=== PATIENT | female | born 1985 | race Caucasian/White ===

== ENCOUNTER 2016-10-01 10:40 | Emergency (ER) | payer OTHER ==
[~2016-10-01] VITALS: Ht 167.6 cm; Wt 72.6 kg
[2016-10-01 10:42] VITALS: BP 140/86
[2016-10-01] MEDS ORDERED: TYLE650T35 PO (10:54)
[2016-10-01] MEDS ORDERED: ALBU17IN INH (10:54)
[2016-10-01] MEDS ORDERED: SILV1CRE19 TOP (11:22)
[2016-10-01] MEDS ORDERED: NORCOTAB PO (11:22)
== END 2016-10-01 11:35 | disposition home or self-care (01) ==
LOC: M ED 11:03
DX: T22.112A Burn of first degree of left forearm, initial encounter (principal); T22.212A Burn of second degree of left forearm, initial encounter; X10.2XXA Contact with fats and cooking oils, initial encounter; Y92.59 Other trade areas as the place of occurrence of the external cause; Y93.G3 Activity, cooking and baking; Y99.0 Civilian activity done for income or pay; J45.909 Unspecified asthma, uncomplicated; F17.200 Nicotine dependence, unspecified, uncomplicated; Z86.14 Personal history of Methicillin resistant Staphylococcus aureus infection; Z88.0 Allergy status to penicillin

== ENCOUNTER 2018-04-19 11:58 | Emergency (ER) | payer OTHER ==
[2018-04-19] MEDS: IPRATROPIUM 0.5MG/ALBUTEROL 2.5MG INH SOL UD 3ML (DUONEB)(J7620) NEB (13:31)
== END 2018-04-19 13:59 | disposition home or self-care (01) ==
LOC: M ED 11:58
DX: J06.9 Acute upper respiratory infection, unspecified (principal)
CPT/HCPCS: 71046

== ENCOUNTER 2018-08-16 14:37 | Emergency (ER) | payer OTHER ==
[~2018-08-16] VITALS: Ht 167.6 cm; Wt 81.8 kg
[~2018-08-16 14:37] MED LIST: ALBU17IN INH; BENT10CA PO; NORCOTAB PO; PRED10TA2 PO; PROAAER10 INH; SILV1CRE60 TOP; TYLE650T35 PO; ZOFR4TAB14 PO
[2018-08-16] MEDS ORDERED: ACET-683 PO (14:42)
[2018-08-16] MEDS ORDERED: ACETAMINOPHEN TAB 650MG DOSE (2X325MG) PO ONE (15:00)
--- NOTE | 2018-08-16 15:17 | REP ---
PA and lateral chest: Comparison is 04/19/2018. The lung bishop are clear. The cardiac size is normal. The zayda, mediastinum, and skeletal structures are unremarkable. Impression: Negative PA and lateral chest. There is no interval change. Electronically Signed by Joaquim Okeefe MD 08/16/2018 03:09 P
[2018-08-16 15:38] LABS: INFLUENZA A AMPLIFICATION NEGATIVE (NEGATIVE); INFLUENZA B AMPLIFICATION NEGATIVE (NEGATIVE)
[2018-08-16] MEDS ORDERED: AZIT-12 PO (15:59)
[2018-08-16 16:09] VITALS: BP 111/65
== END 2018-08-16 16:11 | disposition home or self-care (01) ==
LOC: M ED 14:37
DX: H66.90 Otitis media, unspecified, unspecified ear (principal); R05 Cough; J45.909 Unspecified asthma, uncomplicated; F17.200 Nicotine dependence, unspecified, uncomplicated; Z98.890 Other specified postprocedural states; Z88.0 Allergy status to penicillin

== ENCOUNTER → 2018-11-20 | Outpatient (CLI) | payer OTHER ==
[~2018-11-20] MED LIST changes: +ACET-683 PO; +AZIT-12 PO; +HYDR-3715 PO; -NORCOTAB PO
--- NOTE | 2018-11-20 15:27 | REP ---
Chest two views HISTORY: Wheezing Comparison: 08/16/2018 Linear density is present in the right lower lobe consistent with scar. The left lung is clear. The heart is normal in size. The pulmonary vasculature is normal in appearance. The bony structure is intact. IMPRESSION: No acute disease. Electronically Signed by Rosas Stack MD 11/20/2018 03:19 P
== END ==
LOC: M LRY 14:27
PROVIDERS: ATTEND Nurse Practitioner Family
DX: R06.2 Wheezing (principal)

== ENCOUNTER → 2019-01-21 | Outpatient (REF) | payer OTHER, MEDICAID ==
[2019-01-21 17:26] LABS: BASO % 0.4 % (0.0-1.0); EOS # 0.6 10^3/uL (0.0-0.50); EOS % 6.9 % (0.0-3.0); HEMATOCRIT 42.2 % (36.0-47.0); HEMOGLOBIN 14.4 g/dl (12.0-15.5); LYMPH # 2.4 10^3/uL (1.5-4.5); LYMPH % 28.1 % (24.0-44.0); MEAN CORPUSCULAR HEMOGLOBIN 30.1 pg (27.0-33.0); MEAN CORPUSCULAR HGB CONC 34.1 g/dl (32.0-36.5); MEAN CORPUSCULAR VOLUME 88.3 fl (80.0-96.0); MONO # 0.6 10^3/uL (0.0-0.8); MONO % 6.9 % (0.0-5.0); NEUTROPHILS # 4.8 10^3/uL (1.8-7.7); NEUTROPHILS % 57.5 % (36.0-66.0); PLATELET COUNT, AUTOMATED 281 10^3/uL (150-450); RED BLOOD COUNT 4.78 10^6/uL (4.00-5.40); WHITE BLOOD COUNT 8.4 10^3/uL (4.0-10.0)
[2019-01-21 17:47] LABS: ALBUMIN 3.8 GM/DL (3.2-5.2); ALT/SGPT 30 U/L (12-78); BILIRUBIN,TOTAL 0.3 MG/DL (0.2-1.0); BLOOD UREA NITROGEN 14 MG/DL (7-18); CALCIUM LEVEL 9.3 MG/DL (8.5-10.1); CARBON DIOXIDE LEVEL 25 MEQ/L (21-32); CHLORIDE LEVEL 108 MEQ/L (98-107); CHOLESTEROL LEVEL 173 MG/DL (<200); CHOLESTEROL RISK RATIO 4.552 (<5); CREATININE FOR GFR 0.89 MG/DL (0.55-1.30); FREE T4 1.28 NG/DL (0.76-1.46); GLOMERULAR FILTRATION RATE > 60.0 (>60); GLUCOSE, FASTING 95 MG/DL (70-100); HDL CHOLESTEROL 38 MG/DL (>40); LDL CHOLESTEROL 111 MG/DL (<100); NON-HDL-C 135 MG/DL; POTASSIUM SERUM 3.9 MEQ/L (3.5-5.1); SODIUM LEVEL 140 MEQ/L (136-145); TOTAL 25(OH) VITAMIN D 22.8 NG/ML (30.0-100.0); TRIGLYCERIDES LEVEL 121 MG/DL (<150)
[2019-01-21 18:03] LABS: HEMOGLOBIN A1c 5.7 %
[2019-01-21 19:35] LABS: AMORPHOUS SEDIMENT SMALL (NEGATIVE); APPEARANCE, URINE CLEAR (CLEAR); BACTERIA, URINE AUTO NEGATIVE (NEGATIVE); BILIRUBIN, URINE AUTO 1+ (NEGATIVE); BLOOD, URINE BLOOD NEGATIVE (NEGATIVE); COLOR, URINE AMBER (YELLOW); GLUCOSE, URINE (UA) AUTO NEGATIVE (NEGATIVE); KETONE, URINE AUTO TRACE mg/dL (NEGATIVE); LEUKOCYTE ESTERASE, URINE AUTO NEGATIVE (NEGATIVE); MUCUS, URINE LARGE (NEGATIVE); NITRITE, URINE AUTO NEGATIVE (NEGATIVE); PROTEIN, URINE AUTO 1+ mg/dL (NEGATIVE); RBC, URINE AUTO 1 /HPF (0-3); SPECIFIC GRAVITY URINE AUTO 1.042 (1.002-1.035); SQUAMOUS EPITHELIAL CELL UR AU 6 /HPF (0-6); WBC, URINE AUTO 5 /HPF (0-3)
== END ==
LOC: M LAB REF 16:40
PROVIDERS: ATTEND Nurse Practitioner Family
DX: Z13.9 Encounter for screening, unspecified (principal)

== ENCOUNTER → 2019-03-02 | Outpatient (REF) | payer OTHER, MEDICAID ==
[2019-03-02 19:43] LABS: APPEARANCE, URINE TURBID (CLEAR); BACTERIA, URINE AUTO NEGATIVE (NEGATIVE); BILIRUBIN, URINE AUTO NEGATIVE (NEGATIVE); BLOOD, URINE BLOOD NEGATIVE (NEGATIVE); COLOR, URINE YELLOW (YELLOW); GLUCOSE, URINE (UA) AUTO NEGATIVE (NEGATIVE); KETONE, URINE AUTO TRACE mg/dL (NEGATIVE); LEUKOCYTE ESTERASE, URINE AUTO NEGATIVE (NEGATIVE); NITRITE, URINE AUTO NEGATIVE (NEGATIVE); PROTEIN, URINE AUTO NEGATIVE (NEGATIVE); RBC, URINE AUTO 0 /HPF (0-3); SPECIFIC GRAVITY URINE AUTO 1.038 (1.002-1.035); SQUAMOUS EPITHELIAL CELL UR AU 4 /HPF (0-6); WBC, URINE AUTO 0 /HPF (0-3)
== END ==
LOC: M LAB REF 19:19
PROVIDERS: ATTEND Nurse Practitioner Family
DX: Z13.9 Encounter for screening, unspecified (principal)

== ENCOUNTER → 2019-07-07 | Outpatient (REF) | payer OTHER, MEDICAID ==
[2019-07-07 17:38] LABS: BASO % 0.6 % (0.0-1.0); EOS # 0.2 10^3/uL (0.0-0.5); EOS % 2.9 % (0.0-3.0); HEMATOCRIT 40.5 % (36.0-47.0); HEMOGLOBIN 13.7 g/dl (12.0-15.5); LYMPH # 2.2 10^3/uL (1.5-5.0); LYMPH % 30.8 % (24.0-44.0); MEAN CORPUSCULAR HEMOGLOBIN 29.3 pg (27.0-33.0); MEAN CORPUSCULAR HGB CONC 33.8 g/dl (32.0-36.5); MEAN CORPUSCULAR VOLUME 86.5 fl (80.0-96.0); MONO # 0.5 10^3/uL (0.0-0.8); MONO % 6.4 % (0.0-5.0); NEUTROPHILS # 4.1 10^3/uL (1.5-8.5); PLATELET COUNT, AUTOMATED 310 10^3/uL (150-450); RED BLOOD COUNT 4.68 10^6/uL (4.00-5.40)
[2019-07-07 18:00] LABS: HEMOGLOBIN A1c 5.5 %
[2019-07-07 18:09] LABS: ALBUMIN 3.7 GM/DL (3.2-5.2); ALT/SGPT 19 U/L (12-78); BILIRUBIN,TOTAL 0.2 MG/DL (0.2-1.0); BLOOD UREA NITROGEN 18 MG/DL (7-18); CALCIUM LEVEL 8.9 MG/DL (8.5-10.1); CARBON DIOXIDE LEVEL 24 MEQ/L (21-32); CHLORIDE LEVEL 108 MEQ/L (98-107); CHOLESTEROL LEVEL 170 MG/DL (<200); CHOLESTEROL RISK RATIO 4.358 (<5); CREATININE FOR GFR 0.74 MG/DL (0.55-1.30); GLOMERULAR FILTRATION RATE > 60.0 (>60); GLUCOSE, FASTING 103 MG/DL (70-100); HDL CHOLESTEROL 39 MG/DL (>40); LDL CHOLESTEROL 96 MG/DL (<100); NON-HDL-C 131 MG/DL; POTASSIUM SERUM 4.6 MEQ/L (3.5-5.1); SODIUM LEVEL 139 MEQ/L (136-145); TOTAL PROTEIN 6.7 GM/DL (6.4-8.2); TRIGLYCERIDES LEVEL 177 MG/DL (<150)
[2019-07-07 18:13] LABS: TOTAL 25(OH) VITAMIN D 23.4 NG/ML (30.0-100.0); VITAMIN B12 LEVEL 967 PG/ML (247-911)
[2019-07-08 11:03] LABS: FOLATE 6.5 NG/ML (>5.4)
== END ==
LOC: M LAB REF 16:30
PROVIDERS: ATTEND Nurse Practitioner Family
DX: R20.2 Paresthesia of skin (principal); R73.03 Prediabetes; F17.200 Nicotine dependence, unspecified, uncomplicated; Z13.9 Encounter for screening, unspecified

== ENCOUNTER → 2019-12-16 | Outpatient (REF) | payer OTHER, MEDICAID ==
[~2019-12-16] MED LIST changes: +ACET650T61 PO; -TYLE650T35 PO
[2019-12-16 20:29] LABS: CHLAMYDIA DNA AMPLIFICATION NEGATIVE (NEGATIVE); GC DNA AMPLIFICATION NEGATIVE (NEGATIVE)
== END ==
LOC: M LAB REF 16:33
PROVIDERS: ATTEND Nurse Practitioner Family
DX: Z12.4 Encounter for screening for malignant neoplasm of cervix (principal); Z13.9 Encounter for screening, unspecified; R87.613 High grade squamous intraepithelial lesion on cytologic smear of cervix (HGSIL)

== ENCOUNTER → 2019-12-17 | Outpatient (REF) | payer OTHER, MEDICAID ==
[2019-12-17 13:01] LABS: BASO % 0.4 % (0.0-1.0); EOS # 0.1 10^3/uL (0.0-0.5); HEMATOCRIT 39.1 % (36.0-47.0); HEMOGLOBIN 13.1 g/dl (12.0-15.5); LYMPH # 2.5 10^3/uL (1.5-5.0); LYMPH % 35.1 % (24.0-44.0); MEAN CORPUSCULAR HEMOGLOBIN 29.3 pg (27.0-33.0); MEAN CORPUSCULAR HGB CONC 33.5 g/dl (32.0-36.5); MEAN CORPUSCULAR VOLUME 87.5 fl (80.0-96.0); MONO # 0.5 10^3/uL (0.0-0.8); MONO % 7.6 % (0.0-5.0); NEUTROPHILS # 3.8 10^3/uL (1.5-8.5); NEUTROPHILS % 54.6 % (36.0-66.0); PLATELET COUNT, AUTOMATED 275 10^3/uL (150-450); RED BLOOD COUNT 4.47 10^6/uL (4.00-5.40)
[2019-12-17 13:11] LABS: ALT/SGPT 37 U/L (12-78); BILIRUBIN,TOTAL 0.4 MG/DL (0.2-1.0); BLOOD UREA NITROGEN 27 MG/DL (7-18); CARBON DIOXIDE LEVEL 23 MEQ/L (21-32); CHLORIDE LEVEL 108 MEQ/L (98-107); CHOLESTEROL LEVEL 180 MG/DL (<200); CHOLESTEROL RISK RATIO 3.529 (<5); CREATININE FOR GFR 1.04 MG/DL (0.55-1.30); GLOMERULAR FILTRATION RATE > 60.0 (>60); GLUCOSE, FASTING 94 MG/DL (70-100); HDL CHOLESTEROL 51 MG/DL (>40); LDL CHOLESTEROL 107 MG/DL (<100); NON-HDL-C 129 MG/DL; POTASSIUM SERUM 3.4 MEQ/L (3.5-5.1); SODIUM LEVEL 140 MEQ/L (136-145); TOTAL PROTEIN 7.3 GM/DL (6.4-8.2); TRIGLYCERIDES LEVEL 108 MG/DL (<150)
[2019-12-17 16:24] LABS: HEMOGLOBIN A1c 5.7 %
== END ==
LOC: M LAB REF 11:43
PROVIDERS: ATTEND Nurse Practitioner Family
DX: R73.03 Prediabetes (principal); E78.5 Hyperlipidemia, unspecified; F17.200 Nicotine dependence, unspecified, uncomplicated; M54.89 Other dorsalgia; Z13.9 Encounter for screening, unspecified; F41.8 Other specified anxiety disorders

== ENCOUNTER → 2020-05-18 | Outpatient (REF) | payer OTHER, MEDICAID ==
[2020-05-18 13:20] LABS: BASO % 0.3 % (0.0-1.0); EOS # 0.1 10^3/uL (0.0-0.5); EOS % 0.8 % (0.0-3.0); HEMATOCRIT 41.2 % (36.0-47.0); HEMOGLOBIN 13.9 g/dl (12.0-15.5); LYMPH # 2.3 10^3/uL (1.5-5.0); MEAN CORPUSCULAR HGB CONC 33.7 g/dl (32.0-36.5); MEAN CORPUSCULAR VOLUME 85.8 fl (80.0-96.0); MONO # 0.6 10^3/uL (0.0-0.8); MONO % 6.8 % (0.0-5.0); NEUTROPHILS # 5.8 10^3/uL (1.5-8.5); NEUTROPHILS % 65.9 % (36.0-66.0); PLATELET COUNT, AUTOMATED 271 10^3/uL (150-450); WHITE BLOOD COUNT 8.7 10^3/uL (4.0-10.0)
[2020-05-18 13:37] LABS: ALT/SGPT 45 U/L (12-78); BILIRUBIN,TOTAL 0.4 MG/DL (0.2-1.0); BLOOD UREA NITROGEN 20 MG/DL (7-18); CALCIUM LEVEL 8.9 MG/DL (8.5-10.1); CARBON DIOXIDE LEVEL 27 MEQ/L (21-32); CHLORIDE LEVEL 112 MEQ/L (98-107); CHOLESTEROL LEVEL 213 MG/DL (<200); CREATININE FOR GFR 0.78 MG/DL (0.55-1.30); FREE T4 1.27 NG/DL (0.76-1.46); GLOMERULAR FILTRATION RATE > 60.0 (>60); GLUCOSE, FASTING 109 MG/DL (70-100); HDL CHOLESTEROL 50 MG/DL (>40); LDL CHOLESTEROL 130 MG/DL (<100); NON-HDL-C 163 MG/DL; POTASSIUM SERUM 3.6 MEQ/L (3.5-5.1); SODIUM LEVEL 142 MEQ/L (136-145); TOTAL PROTEIN 7.3 GM/DL (6.4-8.2); TRIGLYCERIDES LEVEL 165 MG/DL (<150)
[2020-05-18 13:39] LABS: TOTAL 25(OH) VITAMIN D 15.3 NG/ML (30.0-100.0)
[2020-05-18 13:50] LABS: HEMOGLOBIN A1c 5.7 %
== END ==
LOC: M LAB REF 12:55
PROVIDERS: ATTEND Nurse Practitioner Family
DX: F43.23 Adjustment disorder with mixed anxiety and depressed mood (principal); R73.03 Prediabetes; E78.5 Hyperlipidemia, unspecified; F17.200 Nicotine dependence, unspecified, uncomplicated

== ENCOUNTER 2020-07-15 00:40 | Emergency (ER) | payer MEDICAID, OTHER ==
[~2020-07-15] VITALS: Ht 167.6 cm; Wt 81.8 kg
--- OUTSIDE RECORDS SUMMARY | 2020-07-15 00:44 | CCD ---
Author Organization Unknown Address [address] [place] [address] Phone [phone] Care Team Providers Care Child Care Attendant School Name Role Phone [facility] 212 [phone] [facility] 240 [phone] Allergies Code Code System Name Reaction Severity Status Onset Penicillin Active 03/02/2019 Medications Name Status Start Date Stop Date albuterol sulfate HFA 90 mcg/actuation a erosol inhaler INHALE TWO PUFFS BY MOUTH EVERY 4 HOURS Active Not available azithromycin 250 mg tablet Completed 04/11 bupropion HCl XL 150 mg 24 hr tablet, extended release Completed 04/11/2020 bupropion HCl XL 300 mg 24 hr tablet, extended release Active Not available Chantix Continuing Month Box 1 mg tablet Active Not available cyclobenzaprine 10 mg tablet Completed 07/2019 doxycycline hyclate 100 mg tablet Completed 04/11/2020 escitalopram 10 mg tablet TAKE ONE TABLET BY MOUTH EVERY MORNING Active Not available fluoxetine 10 mg capsule Completed 020 gabapentin 300 mg capsule Take 1 capsule twice a day by oral route. Active Not available meloxicam 15 mg tablet TAKE ONE TABLET BY MOUTH EVERY DAY Active Not available meloxicam 7.5 mg tablet Completed 04/11/20 20 methylphenidate 20 mg tablet Active Not available metronidazole 500 mg tablet Completed 07/2019 Mucus Relief ER 600 mg tablet, extended release Completed 04/11/2020 prazosin 1 mg capsule Completed 04/12/2020 prazosin 2 mg capsule Active Not availa ble prednisone 10 mg tablet Completed 04/12/20 20 Systane Nighttime 94 %-3 % eye ointment APPLY 1/4 INCH STRIP INTO BOTH LOWER EYELIDS AT BEDTIME DIRECTED Active Not available Vitamin D2 1,250 mcg (50,000 unit) capsu le Take 1 capsule every week by oral route as directed. Active Not available Problems Name Status Onset Date Source Nicotine Dependence Active 12/31/2018 History Pain in Thoracic Spine Active 12/31/2018 History Emotional State Finding Active 12/31/2018 History Clinical Finding Active 12/31/2018 History Hyperlipidemia Active 03/02/2019 History Prediabetes Active 03/02/2019 History Screening for Malignant Neoplasm of Cervix Active 03/02 History Finding of Regularity of Menstrual Cycle Active 019 History Disorder of Upper Respiratory System Active 03/20/2019 History Increased Frequency of Urination Active 03/20/2019 History Tingling of Skin Active 05/18/2019 History Dyspnea Active 06/30/2019 History Pain in Right Hip Joint Active 06/30/2019 History Cannabis Abuse Active 10/15/2019 History Adjustment Disorder with Mixed Disturbance of Emotions and C onduct Active 10/27/2019 History Cough Active 11/10/2019 History Posttraumatic Stress Disorder Active 11/23/2019 Hi story Acute Vaginitis Active 12/16/2019 History Evaluation Finding Active 01/16/2020 History Procedures Date Name Performed by Shaving Notes: jaw Information not available Internal Fixation of Clavicle without Fr acture Reduction Information not available Cystoscopy Notes: cyst and part of jaw removed Information not available Removal Notes: teeth Information not available Ear Tube Notes: both ears Information not available Results Lab Results Date Name Specimen Result Interpretation Description Value Range Status Address 05/18/2020 CBC W/ Auto Diff Normal White Blood Count 8.7 10 4.0-10.0 10 [facility]: 0 [facility] Normal Red Blood Count 4.80 10 4.00-5.40 10 [facility]: 830 [facility] Normal Hemoglobin 13.9 g/dL 12.0-15.5 g/dL [facility]: 830 [facility] Normal Hematocrit 41.2 % 36.0-47.0 % [facility]: 8[address] [facility] Normal Mean Corpuscular Volume 85.8 fL 80.0 -96.0 fL [facility]: 0 [facility] Normal Mean Corpuscular Hemoglobin 29.0 pg 27.0-33.0 pg [facility]: [address] [facility] Normal Mean Corpuscular HGB Conc 33.7 g/dL 32.0-36.5 g/dL [facility]: 830 [facility] Normal Red Cell Distribution Width 12.0 % 1 1.5-14.5 % [facility]: [address] [place] [address] Normal Platelet Count, Automated 271 10 150 -450 10 [facility]: [address] [facility] Normal Neutrophils % 65.9 % 36.0-66.0 % [facility]: 8[address] [facility] Normal Lymph % 26.0 % 24.0-44.0 % Final [facility]: [address] [facility] High Dickson % 6.8 % 0.0-5.0 % Final [facility]: [address] [place] [address] Normal Eos % 0.8 % 0.0-3.0 % [facility]: [address] [place] [address] Normal Baso % 0.3 % 0.0-1.0 % [facility]: [address] [place] [address] Normal Immature Granulocyte % 0.2 % 0-3.0 % [facility]: [address] [facility] Normal Nucleated Red Blood Cell % 0.0 % 0- 0 % [facility]: 8[address] [facility] Normal Neutrophils # 5.8 10 1.5-8.5 10 [facility]: [address] [facility] Normal Lymph # 2.3 10 1.5-5.[address] [facility]: 0 [facility] Normal Dickson # 0.6 10 0.0-0.8 10 [facility]: 0 [facility] Normal Eos # 0.1 10 0.0-0.5 10 [facility]: 0 [facility] Normal Baso # 0.0 10 0.0-0.2 10 [facility]: [address] [place] [address] 05/18/2020 CMP, Serum or Plasma Blood venous High Glu cose, Fasting 109 mg/dL 70-100 mg/dL [facility] nter: 0 [facility] Blood venous High Blood Urea Nitrogen 20 mg/dL 7-18 mg/dL Final [facility]: [address] [facility] Blood venous Normal Creatinine for GFR 0.78 mg/dL 0.55-1.30 mg/dL [facility]: [address] [facility] Blood venous Normal Glomerular Filtration Rate > 60.0 >60 [facility]: [address] [facility] Blood venous Normal Sodium Level 142 mEq/L 136-14 5 mEq/L [facility]: [address] [facility] Blood venous Normal Potassium Serum 3.6 mEq/L 3.5 -5.1 mEq/L [facility]: [address] [facility] Blood venous High Chloride Level 112 mEq/L 98-1 07 mEq/L [facility]: [address] [facility] Blood venous Normal Carbon Dioxide Level 27 mEq/L 21-32 mEq/L [facility]: 8[address] [facility] Blood venous Low Anion Gap 3 mEq/L 8-16 mEq/L [facility]: 8[address] [facility] Blood venous Normal Calcium Level 8.9 mg/dL 8.5-1 0.1 mg/dL [facility]: 8[address] [facility] Blood venous Normal AST/SGOT 20 U/L 7-37 U/L [facility]: [address] [facility] Blood venous Normal ALT/SGPT 45 U/L 12-78 U/L [facility]: [address] [facility] Blood venous High Alkaline Phosphatase 131 U/L 45-117 U/L [facility]: [address] [facility] Blood venous Normal Bilirubin,total 0.4 mg/dL 0.2 -1.0 mg/dL [facility]: [address] [facility] Blood venous Normal Total Protein 7.3 gm/dL 6.4-8 .2 gm/dL [facility]: 0 [facility] Blood venous Normal Albumin 4.0 gm/dL 3.2-5.2 gm/ dL [facility]: [address] [facility] Blood venous Normal Albumin/globulin Ratio 1.2 1.2-2.2 [facility]: [address] [place] [address] 05/18/2020 Lipid Panel, Blood Blood venous High Trigl ycerides Level 165 mg/dL <150 mg/dL [facility] nter: [address] [place] [address] Blood venous High Cholesterol Level 213 mg/dL < 200 mg/dL [facility]: [address] [place] [address] Blood venous Normal HDL Cholesterol 50 mg/dL >40 mg/dL [facility]: [address] [place] [address] Blood venous High LDL Cholesterol 130 mg/dL <10 0 mg/dL [facility]: [address] [place] [address] Blood venous Normal Non-hdl-c 163 mg/dL Fi [facility]: [address] [place] [address] Blood venous Normal Cholesterol Risk Ratio 4.260 <5 [facility]: [address] [place] [address] 05/18/2020 TSH + Free T4, Serum Blood venous High Thyroid Stimulating Hormone 4.240 uIU/mL 0.358-3.740 uIU/mL [facility] ical Center: [address] [place] [address] Blood venous Normal Free T4 1.27 NG/dL 0.76-1.46 NG/dL [facility]: [address] [place] [address] 05/18/2020 Vitamin D, 25-Hydroxy, Total, Serum Blood venous Low Total 25(Oh) Vitamin D 15.3 NG/mL 30.0-100.0 NG/mL [facility] Center: [address] [place] [address] 05/18/2020 HbA1C (Hemoglobin a1C), Blood Normal Hemogl obin a1C 5.7 % [facility]: [address] [place] [address] High Estimated Average Glucose 117 mg/dL 60-110 mg/dL [facility]: [address] [place] [address] Past Encounters 07/05/2020 Peripheral Neuropathic Pain; Patient Asked to Attend; Nicotine Dependence with Current Use; Vitamin D Deficiency; Screening for Malignant Neoplasm of Cervix Carolynn Peñaloza, [employer] BUSINESS DEVELOPMENT OFFICER-BC: [address] [place] [phone], Ph. 05/19/2020 Adjustment Disorder with Mixed Disturbance of Emotions and Conduct; Attention Deficit Hyperactivity Disorder, Combined Type; Depressive Disorder; Generalized Anxiety Disorder; Chronic Post-traumatic Stress Disorder Dawn Tinoco MD: [address] [place] [address], Ph. 05/18/2020 JUDY WeissP-BC: [address] [place] [address], Ph. 04/25/2020 Adjustment Disorder with Mixed Disturbance of Emotions and Conduct Mary Gutierrez MANAGER ASSESSMENT-R: [address] [place] [address], Ph. 04/11/2020 Peripheral Neuropathic Pain; Adult Health Examination; Nicotine Dependence; Mixed Anxiety and Depressive Disorder; Hyperlipidemia AYLEEN Weiss-BC: [address] [place] [address], Ph. Social History Tobacco Smoking Status Heavy Tobacco Smoker (1/2 PPD) Vaccine List None recorded. Plan of Care Reminders Provider Appointments None recorded. Lab None recorded. Referral None recorded. Procedures None recorded. Surgeries None recorded. Imaging None recorded. Vitals 07/05/2020 05:40PM TELEHEALTH 20 Height 67 in 05/19/2020 08:30AM TELEHEALTH 30 Height Weight BMI 67 in 196 lbs 3.2 oz 30.7 kg/m2 04/11/2020 11:20AM ANNUAL EXAM Height Weight BMI Blood Pressure 67 in 199 lbs 3.2 oz 31.2 kg/m2 112/70 mm[Hg ] 12/28/2019 Height Weight 67 in 201 lbs 2.08 oz 12/17/2019 Height Weight 67 in 198 lbs 2.08 oz 12/16/2019 Height Weight Blood Pressure 67 in 197 lbs 3.04 oz 118/76 mm[Hg] 11/23/2019 Height Weight 67 in 202 lbs 2.08 oz 11/10/2019 Height Weight Blood Pressure 67 in 195 lbs 131/86 mm[Hg] 10/15/2019 Height Weight Blood Pressure 67 in 195 lbs 6.08 oz 114/77 mm[Hg] 06/30/2019 Height Weight Blood Pressure 67 in 202 lbs 115/77 mm[Hg] 05/18/2019 Height Weight Blood Pressure 67 in 200 lbs 116/85 mm[Hg] 03/20/2019 Height Weight Blood Pressure 67 in 197 lbs 9.6 oz 101/74 mm[Hg] 03/02/2019 Height Weight Blood Pressure 67 in 198 lbs 2.08 oz 112/76 mm[Hg] 12/31/2018 Height Weight Blood Pressure 67 in 205 lbs 105/73 mm[Hg]
--- OUTSIDE RECORDS SUMMARY | 2020-07-15 00:44 | CCD ---
Author Organization Unknown Address [address] [place] [address] Phone [phone] Care Team Providers Care Intelligence Group Supervisor Name Role Phone [facility] 212 [phone] [facility] 240 [phone] Allergies Code Code System Name Reaction Severity Status Onset Penicillin Active 03/02/2019 Medications Name Status Start Date Stop Date albuterol sulfate HFA 90 mcg/actuation aerosol inhaler Active Not available azithromycin 250 mg tablet Completed 04/11 bupropion HCl XL 150 mg 24 hr tablet, extended release Completed 04/11/2020 bupropion HCl XL 300 mg 24 hr tablet, extended release Active Not available Chantix Continuing Month Box 1 mg tablet Active Not available cyclobenzaprine 10 mg tablet Completed 07/2019 doxycycline hyclate 100 mg tablet Completed 04/11/2020 escitalopram 10 mg tablet Active Not av ailable fluoxetine 10 mg capsule Completed 020 gabapentin 300 mg capsule Active Not av ailable meloxicam 15 mg tablet Active Not avail able meloxicam 7.5 mg tablet Completed 04/11/20 20 metronidazole 500 mg tablet Completed 07/2019 Mucus Relief ER 600 mg tablet, extended release Completed 04/11/2020 prazosin 1 mg capsule Completed 04/12/2020 prazosin 2 mg capsule Active Not availa ble prednisone 10 mg tablet Completed 04/12/20 20 Ritalin 20 mg tablet Take 0.5 tablets twice a day by oral route as directed for 30 days. Active Not available Systane Nighttime 94 %-3 % eye ointment APPLY 1/4 INCH STRIP INTO BOTH LOWER EYELIDS AT BEDTIME DIRECTED Active Not available Problems Name Status Onset [...] White Blood Count 8.7 10 4.0-10.0 10 [facility]: [address] [place] [address] Normal Red Blood Count 4.80 10 4.00-5.40 10 [facility]: [address] [place] [address] Normal Hemoglobin 13.9 g/dL 12.0-15.5 g/dL [facility]: [address] [place] [address] Normal Hematocrit 41.2 % 36.0-47.0 % [facility]: [address] [place] [address] Normal Mean Corpuscular Volume 85.8 fL 80.0 -96.0 fL [facility]: [address] [place] [address] Normal Mean Corpuscular Hemoglobin 29.0 pg 27.0-33.0 pg [facility]: [address] [place] [address] Normal Mean Corpuscular HGB Conc 33.7 g/dL 32.0-36.5 g/dL [facility]: [address] [place] [address] Normal Red Cell Distribution Width 12.0 % 1 1.5-14.5 % [facility]: [address] [place] [address] Normal Platelet Count, Automated 271 10 150 -450 10 [facility]: 830 [facility] Normal Neutrophils % 65.9 % 36.0-66.0 % [facility]: 8[address] [facility] Normal Lymph % 26.0 % 24.0-44.0 % [facility]: 8[address] [facility] High Turner % 6.8 % 0.0-5.0 % Final [facility]: 8[address] [facility] Normal Eos % 0.8 % 0.0-3.0 % [facility]: 8[address] [facility] Normal Baso % 0.3 % 0.0-1.0 % [facility]: [address] [place] [address] Normal Immature Granulocyte % 0.2 % 0-3.0 % [facility]: [address] [place] [address] Normal Nucleated Red Blood Cell % 0.0 % 0- 0 % [facility]: 8[address] [facility] Normal Neutrophils # 5.8 10 1.5-8.5 10 [facility]: [address] [facility] Normal Lymph # 2.3 10 1.5-5.0 10 [facility]: 8[address] [facility] Normal Turner # 0.6 10 0.0-0.8 10 [facility]: 8[address] [facility] Normal Eos # 0.1 10 0.0-0.5 10 [facility]: 8[address] [facility] Normal Baso # 0.0 10 0.0-0.2 10 [facility]: 830 [facility] 05/18/2020 CMP, Serum or Plasma Blood venous High Glu cose, Fasting 109 mg/dL 70-100 mg/dL [facility] nter: 0 [facility] Blood venous High Blood Urea Nitrogen 20 mg/dL 7-18 mg/dL [facility]: [address] [place] [address] Blood venous Normal Creatinine for GFR 0.78 mg/dL 0.55-1.30 mg/dL [facility]: 830 [facility] Blood venous Normal Glomerular Filtration Rate > 60.0 >60 [facility]: 8[address] [facility] Blood venous Normal Sodium Level 142 mEq/L 136-14 5 mEq/L [facility]: [address] [facility] Blood venous Normal Potassium Serum 3.6 mEq/L 3.5 -5.1 mEq/L [facility]: [address] [facility] Blood venous High Chloride Level 112 mEq/L 98-1 07 mEq/L [facility]: [address] [facility] Blood venous Normal Carbon Dioxide Level 27 mEq/L 21-32 mEq/L [facility]: [address] [facility] Blood venous Low Anion Gap 3 mEq/L 8-16 mEq/L [facility]: [address] [facility] Blood venous Normal Calcium Level 8.9 mg/dL 8.5-1 0.1 mg/dL [facility]: [address] [facility] Blood venous Normal AST/SGOT 20 U/L 7-37 U/L [facility]: 8[address] [facility] Blood venous Normal ALT/SGPT 45 U/L 12-78 U/L [facility]: [address] [facility] Blood venous High Alkaline Phosphatase 131 U/L 45-117 U/L [facility]: [address] [facility] Blood venous Normal Bilirubin,total 0.4 mg/dL 0.2 -1.0 mg/dL [facility]: [address] [facility] Blood venous Normal Total Protein 7.3 gm/dL 6.4-8 .2 gm/dL [facility]: 0 [facility] Blood venous Normal Albumin 4.0 gm/dL 3.2-5.2 gm/ dL [facility]: 0 [facility] Blood venous Normal Albumin/globulin Ratio 1.2 1.2-2.2 [facility]: [address] [place] [address] 05/18/2020 Lipid Panel, Blood Blood venous High Trigl ycerides Level 165 mg/dL <150 mg/dL [facility] nter: 0 [facility] Blood venous High Cholesterol Level 213 mg/dL < 200 mg/dL [facility]: [address] [place] [address] Blood venous Normal HDL Cholesterol 50 mg/dL >40 mg/dL [facility]: [address] [place] [address] Blood venous High LDL Cholesterol 130 mg/dL <10 0 mg/dL [facility]: [address] [place] [address] Blood venous Normal Non-hdl-c 163 mg/dL [facility]: [address] [place] [address] Blood venous Normal Cholesterol Risk Ratio 4.260 <5 [facility]: [address] [place] [address] 05/18/2020 TSH + Free T4, Serum Blood venous High Thyroid Stimulating Hormone 4.240 uIU/mL 0.358-3.740 uIU/mL [facility] ical Center: [address] [place] [address] Blood venous Normal Free T4 1.27 NG/dL 0.76-1.46 NG/dL [facility]: [address] [place] [address] 05/18/2020 Vitamin D, 25-Hydroxy, Total, Serum Blood venous Low Total 25(Oh) Vitamin D 15.3 NG/mL 30.0-100.0 NG/mL [facility] Center: [address] [place] [address] 05/18/2020 HbA1C (Hemoglobin a1C), Blood Normal Hemogl obin a1C 5.7 % [facility]: [address] [place] [address] High Estimated Average Glucose 117 mg/dL 60-110 mg/dL [facility]: [address] [place] [address] Past Encounters 05/19/2020 Adjustment Disorder with Mixed Disturbance of Emotions and Conduct; Attention Deficit Hyperactivity Disorder, Combined Type; Depressive Disorder; Generalized Anxiety Disorder; Chronic Post-traumatic Stress Disorder Dawn Tinoco MD: [address] [place] [address], Ph. 05/18/2020 CESILIA Weiss: [address] [place] [address], Ph. 04/25/2020 Adjustment Disorder with Mixed Disturbance of Emotions and Conduct Mary Gutierrez, SUPREME COURT JUDGE-R: [address] [place] [address], Ph. 04/11/2020 Peripheral Neuropathic Pain; Adult Health Examination; Nicotine Dependence; Mixed Anxiety and Depressive Disorder; Hyperlipidemia Carolynn Peñaloza, FEDERAL AID COORDINATOR-BC: [address] [place] [address], Ph. Social History Tobacco Smoking Status Heavy Tobacco Smoker (1/2 PPD) Vaccine List None recorded. Plan of Care Reminders Provider Appointments None recorded. Lab None recorded. Referral None recorded. Procedures None recorded. Surgeries None recorded. Imaging None recorded. Vitals 05/19/2020 08:30AM TELEHEALTH 30 Height Weight BMI [...]
--- OUTSIDE RECORDS SUMMARY | 2020-07-15 00:45 | CCD ---
Author Organization Unknown Address [address] [place] [address] Phone [phone] Care Team Providers Care Printing Manager Name Role Phone [facility] 212 [phone] [facility] 240 [phone] Allergies Code Code System Name Reaction Severity [...] Not av ailable meloxicam 15 mg tablet TAKE ONE TABLET [...] ears Information not available Results Lab Results None recorded. Past Encounters 04/25/2020 Adjustment Disorder with Mixed Disturbance of Emotions and Conduct Mary Gutierrez, [facility]-R: [address] [place] [address], Ph. 04/11/2020 Peripheral Neuropathic Pain; Adult Health Examination; Nicotine Dependence; Mixed Anxiety and Depressive Disorder; Hyperlipidemia Carolynn Peñaloza, [facility]-BC: [address] [place] [address], Ph. Social History Tobacco Smoking Status Heavy Tobacco Smoker (1/2 PPD) Vaccine List None recorded. Plan of Care Reminders Provider Appointments None recorded. Lab None recorded. Referral None recorded. Procedures None recorded. Surgeries None recorded. Imaging None recorded. Vitals 04/11/2020 11:20AM ANNUAL EXAM Height Weight BMI [...]
--- OUTSIDE RECORDS SUMMARY | 2020-07-15 00:45 | CCD ---
Author Author [facility] Organization [facility] Address Unknown Phone Unavailable Care Team Providers Care Help Desk Coordinator Name Role Phone Jh, A Carolynn STATOR CONNECTOR Unavailable Unavailable Jh, A Carolynn STATOR CONNECTOR Unavailable Unavailable Jh, A Carolynn STATOR CONNECTOR Unavailable Unavailable Jh, A Carolynn STATOR CONNECTOR Unavailable Unavailable Jh, A Carolynn STATOR CONNECTOR Unavailable Unavailable Jh, A Carolynn STATOR CONNECTOR Unavailable Unavailable Jh, A Carolynn STATOR CONNECTOR Unavailable Unavailable Jh, A Carolynn STATOR CONNECTOR Unavailable Unavailable Jh, A Carolynn STATOR CONNECTOR Unavailable Unavailable Jh, A Carolynn STATOR CONNECTOR Unavailable Unavailable Jh, A Carolynn STATOR CONNECTOR Unavailable Unavailable Jh, A Carolynn STATOR CONNECTOR Unavailable Unavailable Jh, A Carolynn STATOR CONNECTOR Unavailable Unavailable Jh, A Carolynn STATOR CONNECTOR Unavailable Unavailable Jh, A Carolynn STATOR CONNECTOR Unavailable Unavailable Jh, A Carolynn STATOR CONNECTOR Unavailable Unavailable Jh, A Carolynn STATOR CONNECTOR Unavailable Unavailable Jh, A Carolynn STATOR CONNECTOR Unavailable Unavailable Jh, A Carolynn STATOR CONNECTOR Unavailable Unavailable Jh, A Carolynn STATOR CONNECTOR Unavailable Unavailable Jh, A Carolynn STATOR CONNECTOR Unavailable Unavailable Jh, A Carolynn STATOR CONNECTOR Unavailable Unavailable Jh, A Carolynn STATOR CONNECTOR Unavailable Unavailable Jh, A Carolynn STATOR CONNECTOR Unavailable Unavailable Jh, A Carolynn STATOR CONNECTOR Unavailable Unavailable Jh, A Carolynn STATOR CONNECTOR Unavailable Unavailable Jh, A Carolynn STATOR CONNECTOR Unavailable Unavailable Jh, A Carolynn STATOR CONNECTOR Unavailable Unavailable Vaneenenaam, Isauro Graves MD Unavailable Unavailable Vaneenenaam, Isauro Graves MD Unavailable Unavailable Vaneenenaam, Isauro Graves MD Unavailable Unavailable Vaneenenaam, Isauro Graves MD Unavailable Unavailable Vaneenenaam, Isauro Graves MD Unavailable Unavailable Vaneenenaam, Isauro Graves MD Unavailable Unavailable Vaneenenaam, Isauro Graves MD Unavailable Unavailable Vaneenenaam, Isauro Graves MD Unavailable Unavailable Vaneenenaam, Isauro Graves MD Unavailable Unavailable Vaneenenaam, Isauro Graves MD Unavailable Unavailable Vaneenenaam, Isauro Graves MD Unavailable Unavailable Vaneenenaam, Isauro Graves MD Unavailable Unavailable Vaneenenaam, Isauro Graves MD Unavailable Unavailable Vaneenenaam, Isauro Graves MD Unavailable Unavailable Vaneenenaam, Isauro Graves MD Unavailable Unavailable Vaneennavid, Isauro Graves MD Unavailable Unavailable Vaneenzandraam, Isauro Graves MD Unavailable Unavailable Vaneenzandraam, Isauro Graves MD Unavailable Unavailable Vaneenenaam, Isauro Graves MD Unavailable Unavailable Vaneenenaam, Isauro Graves MD Unavailable Unavailable Vaneenenaam, Isauro Graves MD Unavailable Unavailable Vaneenzandraam, Isauro Graves MD Unavailable Unavailable Vaneenzandraam, Isauro Graves MD Unavailable Unavailable Vaneenzandraam, Isauro Graves MD Unavailable Unavailable Vaneenzandraam, Isauro Graves MD Unavailable Unavailable Vanallieam, Isauro Graves MD Unavailable Unavailable Vaneenzanrdaam, Isauro Graves MD Unavailable Unavailable Vaneenzandraam, Isauro Graves MD Unavailable Unavailable Vaneenzandraam, Isauro Graves MD Unavailable Unavailable Vaneenzandraam, Isauro Graves MD Unavailable Unavailable Vansharri, Isauro Graves MD Unavailable Unavailable Vaneenenaam, Isauro Graves MD Unavailable Unavailable Vaneenzandraam, Isauro Graves MD Unavailable Unavailable Vaneenenaam, Isauro Graves MD Unavailable Unavailable Vaneenzandraam, Isauro Graves MD Unavailable Unavailable Vansharri, Isauro Graves MD Unavailable Unavailable Vansharri, Isauro Graves MD Unavailable Unavailable Vanallieam, Isauro Graves MD Unavailable Unavailable Vanallieam, Isauro Graves MD Unavailable Unavailable Vaneenenaam, Isauro Graves MD Unavailable Unavailable Vaneenenaam, Isauro Graves MD Unavailable Unavailable Vansharri, Isauro Graves MD Unavailable Unavailable Vansharri, Isauro Gravse MD Unavailable Unavailable Vanallieam, Isauro Graves MD Unavailable Unavailable Vaneenzandraam, Isauro Graves MD Unavailable Unavailable Vaneenenaam, Isauro Graves MD Unavailable Unavailable Vaneenenaam, Isauro Graves MD Unavailable Unavailable Vaneenenaam, Isauro Graves MD Unavailable Unavailable Vaneenenaam, Isauro Graves MD Unavailable Unavailable Vaneenenaam, Isauro Graves MD Unavailable Unavailable Vaneenenaam, Isauro Graves MD Unavailable Unavailable Vaneenenaam, Isauro Graves MD Unavailable Unavailable Vaneenenaam, Isauro Graves MD Unavailable Unavailable Vaneenenaam, Isauro Graves MD Unavailable Unavailable Vaneenenaam, Isauro Graves MD Unavailable Unavailable Vaneenenaam, Isauro Graves MD Unavailable Unavailable Vaneenenaam, Isauro Graves MD Unavailable Unavailable Vaneenenaam, Isauro Graves MD Unavailable Unavailable Vaneenenaam, Isauro Graves MD Unavailable Unavailable Vaneenenaam, Isauro Graves MD Unavailable Unavailable Vaneenenaam, Isauro Graves MD Unavailable Unavailable Vaneenenaam, Isauro Graves MD Unavailable Unavailable Vaneenenaam, Isauro Graves MD Unavailable Unavailable Vaneenenaam, Isauro Graves MD Unavailable Unavailable Vaneenenaam, Isauro Graves MD Unavailable Unavailable Vaneenzandraam, Isauro Graves MD Unavailable Unavailable Vaneenenaam, Isauro Graves MD Unavailable Unavailable Vaneenenaam, Isauro Graves MD Unavailable Unavailable Vaneenenaam, Isauro Graves MD Unavailable Unavailable Vaneenenaam, Isauro Graves MD Unavailable Unavailable Vaneenenaam, Isauro Graves MD Unavailable Unavailable Vaneenenaam, Isauro Graves MD Unavailable Unavailable Vaneenenaam, Isauro Graves MD Unavailable Unavailable Vaneenzandraam, Isauro Graves MD Unavailable Unavailable Vaneenzandraam, Isauro Graves MD Unavailable Unavailable Vaneenzandraam, Isauro Graves MD Unavailable Unavailable Vaneenzandraam, Isauro Graves MD Unavailable Unavailable Vaneenzandraam, Isauro Graves MD Unavailable Unavailable Vaneenzandraam, Isauro Graves MD Unavailable Unavailable Vaneenzandraam, Isauro Graves MD Unavailable Unavailable Vaneenzandraam, Isauro Graves MD Unavailable Unavailable Vaneenenaam, Isauro Graves MD Unavailable Unavailable Vaneenenaam, Isauro Graves MD Unavailable Unavailable Vaneenenaam, Isauro Graves MD Unavailable Unavailable Jh, Carolynn STATOR CONNECTOR STATOR CONNECTOR Unavailable Unavailable Jh, A Carolynn STATOR CONNECTOR Unavailable Unavailable Jh, A Carolynn STATOR CONNECTOR Unavailable Unavailable Jh, A Carolynn STATOR CONNECTOR Unavailable Unavailable Jh, A Carolynn STATOR CONNECTOR Unavailable Unavailable Jh, A Carolynn STATOR CONNECTOR Unavailable Unavailable Jh, A Carolynn STATOR CONNECTOR Unavailable Unavailable Jh, A Carolynn STATOR CONNECTOR Unavailable Unavailable Jh, A Carolynn STATOR CONNECTOR Unavailable Unavailable Jh, A Carolynn STATOR CONNECTOR Unavailable Unavailable Jh, A Carolynn STATOR CONNECTOR Unavailable Unavailable Jh, A Carolynn STATOR CONNECTOR Unavailable Unavailable Jh, A Carolynn STATOR CONNECTOR Unavailable Unavailable Jh, A Carolynn STATOR CONNECTOR Unavailable Unavailable Jh, A Carolynn STATOR CONNECTOR Unavailable Unavailable Jh, A Carolynn STATOR CONNECTOR Unavailable Unavailable Jh, A Carolynn STATOR CONNECTOR Unavailable Unavailable Jh, A Carolynn STATOR CONNECTOR Unavailable Unavailable Jh, A Carolynn STATOR CONNECTOR Unavailable Unavailable Jh, A Carolynn STATOR CONNECTOR Unavailable Unavailable Jh, A Carolynn STATOR CONNECTOR Unavailable Unavailable Jh, A Carolynn STATOR CONNECTOR Unavailable Unavailable Jh, A Carolynn STATOR CONNECTOR Unavailable Unavailable Jh, A Carolynn STATOR CONNECTOR Unavailable Unavailable Jh, A Caroylnn STATOR CONNECTOR Unavailable Unavailable Jh, A Carolynn STATOR CONNECTOR Unavailable Unavailable Jh, A Carolynn STATOR CONNECTOR Unavailable Unavailable Jh, A Carolynn STATOR CONNECTOR Unavailable Unavailable Jh, A Carolynn STATOR CONNECTOR Unavailable Unavailable Fostveit, Mary Unavailable Unavailable Fostveit, Mary Unavailable Unavailable Chaudhrze, Shy Seymour MD Unavailable Unavailable Chaudhri, S Dawn CESPEDES Unavailable Unavailable Chaudhri, S Dawn CESPEDES Unavailable Unavailable Chaudhri, S Dawn CESPEDES Unavailable Unavailable Chaudhri, S Dawn CESPEDES Unavailable Unavailable Chaudhri, S Dawn CESPEDES Unavailable Unavailable Chaudhri, S Dawn CESPEDES Unavailable Unavailable Chaudhri, S Dawn CESPEDES Unavailable Unavailable Re-disclosure Warning The records that you are about to access may contain information from federally-assisted alcohol or drug abuse programs. If such information is present, then the following federally mandated warning applies: This information has been disclosed to you from records protected by federal confidentiality rules (42 CFR part 2). The federal rules prohibit you from making any further disclosure of this information unless further disclosure is expressly permitted by the written consent of the person to whom it pertains or as otherwise permitted by 42 CFR part 2. A general authorization for the release of medical or other information is NOT sufficient for this purpose. The Federal rules restrict any use of the information to criminally investigate or prosecute any alcohol or drug abuse patient.The records that you are about to access may contain highly sensitive health information, the redisclosure of which is protected by Article 27-F of the [facility] Public Health law. If you continue you may have access to information: Regarding HIV / AIDS; Provided by facilities licensed or operated by the [facility] Office of Mental Health; or Provided by the [facility] Office for People With Developmental Disabilities. If such information is present, then the following [facility] mandated warning applies: This information has been disclosed to you from confidential records which are protected by state law. State law prohibits you from making any further disclosure of this information without the specific written consent of the person to whom it pertains, or as otherwise permitted by law. Any unauthorized further disclosure in violation of state law may result in a fine or residential sentence or both. A general authorization for the release of medical or other information is NOT sufficient authorization for further disc losure. Family History Family Member Name Family Member Gender Family Member Status Date o f Status Description Data Source(s) Unknown Unknown Problem [facility] ([facility], [facility]) Encounters Encounter Providers Location Date Indications Data Source(s ) CESILIA Weiss: [address] [place] [address], Ph. Attender: Carolynn [facility] Medical 07/05/2020 12:00:00 AM EST [place] ([facility]) Dawn Tinoco MD: [address] [place] [address], Ph. Attender: Dawn Tinoco MD [facility] Medical 05/19/2020 12:00:00 AM EST [place] ([facility]) Dawn Tinoco MD: [address] [place] [address], Ph. Attender: Dawn Tinoco MD [facility] Medical 05/19/2020 12:00:00 AM EST [place] ([facility]) CESILIA Weiss: [address] [place] [address], Ph. Attender: Carolynn [facility] Medical 05/18/2020 12:00:00 AM EST [place] ([facility]) CESILIA WeissBC: [address], [place] [address], Ph. Attender: Carolynn Peñaloza [facility] Medical 05/18/2020 12:00:00 AM EST [place] ([facility]) VASILE RachelW-R: [address] [place] [address], Ph. Attender: Mary Gonzalez [facility] Medical 04/25/2020 12:00:00 AM EST [place] ([facility]) Mary Gutierrez LCSW-R: [address] [place] [address], Ph. Attender: Mary Gonzalez [facility] Medical 04/25/2020 12:00:00 AM EST [place] ([facility]) Mary Gutierrez LCSW-R: [address], [place] [address], Ph. Attender: Mary Gonzalez [facility] Medical 04/25/2020 12:00:00 AM EST [place] ([facility]) Outpatient Attender: AYLEEN Peñaloza [facility] 04/11/2020 11:35:01 A M EST [facility] CESILIA WeissBC: [address], [place] [address], Ph. Attender: Carolynn Peñaloza [facility] Medical 04/11/2020 12:00:00 AM EST [place] ([facility]) CESILIA WeissBC: [address], [place] [address], Ph. Attender: Carolynn Peñaloza [facility] Medical 04/11/2020 12:00:00 AM EST [place] ([facility]) AYLEEN WeissBC: [address] [place] [address], Ph. Attender: Carolynn ABBASI [facility] Medical 04/11/2020 12:00:00 AM [facility] ([facility]) [facility] [address] [place] [address], Ph. Attender: Carolynn ABBASI [facility] Medical 04/11/2020 12:00:00 AM [facility] ([facility]) Outpatient Attender: Isauro Casarez MD Physical Therap y 03/31/2020 03:00:00 PM EDT [facility]) Outpatient Attender: Carolynn GAO 03/26/2020 08:3 6:01 PM EDT [facility] Outpatient Attender: Carolynn ABBASI FP 03/25/2020 12:4 7:00 AM EDT [facility] Outpatient Attender: AYLEEN GAO 03/09/2020 10:51:00 A M EDT [facility] Outpatient Attender: AYLEEN GAO 02/23/2020 10:36:01 A M EDT [facility] Outpatient Attender: AYLEEN GAO 02/22/2020 10:05:01 A M EDT [facility] Outpatient Attender: Carolynn GAO 02/18/2020 08:1 3:00 AM EDT [facility] Outpatient Attender: AYLEEN GAO 02/10/2020 11:13:00 A M EDT [facility] Outpatient Attender: Carolynn GAO 02/01/2020 12:1 7:01 PM EDT [facility] Outpatient Attender: AYLEEN GAO 01/29/2020 10:08:01 A M EDT [facility] Outpatient Attender: AYLEEN GAO 01/20/2020 11:21:01 A M EDT [facility] Outpatient Attender: Carolynn GAO 01/18/2020 09:2 6:00 AM EDT [facility] Outpatient Attender: Carolynn KIMP FP 01/18/2020 09:0 9:01 AM EDT [facility] Outpatient Attender: AYLEEN KIMP FP 01/16/2020 09:44:02 P M EDT [facility] Outpatient Attender: Carolynn Peñaloza STATOR CONNECTOR FP 01/16/2020 09:4 4:01 PM EDT [facility] Outpatient Attender: AYLEEN KIMP FP 01/16/2020 09:44:01 P M EDT [facility] Outpatient Attender: AYLEEN Peñaloza STATOR CONNECTOR FP 01/12/2020 10:12:00 A M EDT [facility] Outpatient Attender: Carolynn KIMP FP 12/30/2019 04:2 1:00 PM EDT [facility] Outpatient Attender: AYLEEN Peñaloza STATOR CONNECTOR FP 12/24/2019 08:48:00 A M EDT [facility] Outpatient Attender: Carolynn KIMP FP 12/23/2019 11:5 4:03 AM EDT [facility] Outpatient Attender: Carolynn KIMP FP 12/23/2019 10:2 8:59 AM EDT [facility] Outpatient Attender: Carolynn KIMP FP 12/23/2019 10:2 8:01 AM EDT [facility] Outpatient Attender: Carolynn KIMP FP 12/18/2019 11:1 1:03 PM EDT [facility] Outpatient Attender: AYLEEN KIMP FP 12/18/2019 11:11:02 P M EDT [facility] Outpatient Attender: Carolynn KIMP FP 12/18/2019 11:0 4:01 PM EDT [facility] Outpatient Attender: Carolynn KIMP FP 12/18/2019 11:0 3:00 PM EDT [facility] Outpatient Attender: AYLEEN KIMP FP 12/18/2019 11:02:59 P M EDT [facility] Outpatient Attender: AYLEEN KIMP FP 12/17/2019 08:44:01 A M EDT [facility] Outpatient Attender: AYLEEN KIMP FP 12/16/2019 04:02:02 P M EDT [facility] Outpatient Attender: Carolynn KIMP FP 12/16/2019 04:0 1:02 PM EDT [facility] Outpatient Attender: AYLEEN KIMP FP 12/16/2019 03:24:00 P M EDT [facility] Outpatient Attender: AYLEEN KIMP FP 12/14/2019 02:50:01 P M EDT [facility] Outpatient Attender: Carolynn KIMP FP 12/13/2019 07:5 3:01 PM EDT [facility] Outpatient Attender: AYLEEN KIMP FP 12/04/2019 03:31:00 P M EDT [facility] Outpatient Attender: AYLEEN KIMP FP 11/25/2019 09:55:02 A M EDT [facility] Outpatient Attender: AYLEEN Peñaloza STATOR CONNECTOR FP 11/17/2019 01:21:00 P M EDT [facility] Outpatient Attender: Carolynn KIMP FP 11/12/2019 11:4 3:03 AM EDT [facility] Outpatient Attender: AYLEEN Peañloza STATOR CONNECTOR FP 11/10/2019 10:44:00 A M EDT [facility] Outpatient Attender: Carolynn KIMP FP 11/10/2019 10:4 3:01 AM EDT [facility] Outpatient Attender: AYLEEN KIMP FP 11/10/2019 10:40:01 A M EDT [facility] Outpatient Attender: AYLEEN Peñaloza STATOR CONNECTOR FP 11/03/2019 12:52:01 P M EDT [facility] Outpatient Attender: AYLEEN KIMP FP 10/27/2019 03:36:01 P M EDT [facility] Outpatient Attender: Carolynn KIMP FP 10/27/2019 03:3 6:00 PM EDT [facility] Outpatient Attender: Carolynn KIMP FP 10/23/2019 02:4 6:01 PM EDT [facility] Outpatient Attender: AYLEEN KIMP FP 10/20/2019 12:37:00 P M EDT [facility] Outpatient Attender: AYLEEN KIMP FP 10/20/2019 10:55:01 A M EDT [facility] Outpatient Attender: Carolynn KIMP FP 10/16/2019 03:1 2:03 PM EDT [facility] Outpatient Attender: AYLEEN Peñaloza STATOR CONNECTOR FP 10/15/2019 03:52:01 P M EDT [facility] Outpatient Attender: AYLEEN Peñaloza STATOR CONNECTOR FP 10/15/2019 02:10:01 P M EDT [facility] Outpatient Attender: AYLEEN Peñaloza STATOR CONNECTOR FP 10/13/2019 09:03:01 A M EDT [facility] Outpatient Attender: AYLEEN Peñaloza STATOR CONNECTOR FP 10/12/2019 05:29:00 P M EDT [facility] Outpatient Attender: AYLEEN Peñaloza STATOR CONNECTOR FP 08/26/2019 03:49:01 P M EDT [facility] Outpatient Attender: Carolynn Peñaloza STATOR CONNECTOR FP 08/12/2019 10:0 3:01 PM [facility] Outpatient Referrer: Isauro Casarez MD 08/12/2019 01: 44:00 PM EST [facility] Outpatient Referrer: Isauro Casarez MD 08/12/2019 01: 44:00 PM EST [facility] Outpatient Attender: STATOR CONNECTOR Jh STATOR CONNECTOR FP 08/07/2019 05:16:01 P M [facility] Outpatient Attender: Carolynn Peñaloza STATOR CONNECTOR FP 08/07/2019 05:1 6:00 PM [facility] Outpatient Attender: Carolynn Peñaloza STATOR CONNECTOR FP 08/07/2019 05:1 5:01 PM [facility] Outpatient Attender: STATOR CONNECTORBalaji Peñaloza STATOR CONNECTOR FP 08/07/2019 05:15:00 P M [facility] Outpatient Referrer: Isauro Casarez MD 08/05/2019 02: 05:00 PM EST [facility] Outpatient Referrer: Isauro Casarez MD 07/31/2019 04: 23:00 PM EST [facility] Outpatient Referrer: Isauro Casarez MD 07/29/2019 04: 28:00 PM EST [facility] Outpatient Referrer: Isauro Casarez MD 07/29/2019 02: 59:00 PM EST [facility] Outpatient 07/29/2019 02:57:00 PM EST [facility] Outpatient 07/29/2019 02:33:00 PM EST [facility] Outpatient 07/24/2019 03:54:00 PM EST [facility] Outpatient 07/24/2019 03:53:00 PM [facility] Outpatient 07/24/2019 03:29:00 PM [facility] Outpatient Attender: Carolynn KIMP FP 07/22/2019 12:5 7:02 PM [facility] Outpatient Attender: Carolynn KIMP FP 07/12/2019 03:1 6:00 PM [facility] Outpatient Attender: AYLEEN KIMP FP 07/09/2019 11:20:21 A M [facility] Outpatient Attender: AYLEEN KIMP FP 07/03/2019 09:28:46 A M [facility] Outpatient Attender: AYLEEN KIMP FP 07/03/2019 09:23:52 A M [facility] Outpatient Attender: AYLEEN KIMP FP 07/01/2019 05:22:02 A M [facility] Outpatient Attender: Carolynn KIMP FP 07/01/2019 05:2 1:05 AM [facility] Outpatient Attender: AYLEEN KIMP FP 06/30/2019 06:12:00 P [facility] Outpatient Attender: AYLEEN Peñaloza STATOR CONNECTOR FP 06/30/2019 05:24:00 P [facility] Outpatient Attender: AYLEEN KIMP FP 06/30/2019 05:16:01 P [facility] Outpatient Attender: AYLEEN KIMP FP 06/30/2019 05:04:01 P [facility] Outpatient Attender: AYLEEN KIMP FP 06/30/2019 05:04:01 P [facility] Outpatient Attender: AYLEEN KIMP FP 06/30/2019 05:03:00 P [facility] Outpatient Attender: AYLEEN KIMP FP 06/23/2019 04:13:01 P [facility] Outpatient Attender: AYLEEN KIMP FP 06/16/2019 01:25:02 P [facility] Outpatient Attender: AYLEEN KIMP FP 06/16/2019 01:13:00 P [facility] Outpatient Attender: AYLEEN KIMP FP 06/05/2019 03:28:00 P M EST [facility] Outpatient Attender: AYLEEN Peñaloza [facility] 05/22/2019 11:31:01 A M [facility] Outpatient Attender: Carolynn Peñaloza [facility] 05/20/2019 12:3 9:01 AM [facility] Outpatient Attender: AYLEEN Peñaloza [facility] 05/18/2019 06:02:02 P M [facility] Outpatient Attender: AYLEEN Peñaloza [facility] 05/18/2019 04:15:01 P [facility] Medications Medication Brand Name Start Date Product Form Dose Route Admi nistrative Instructions Pharmacy Instructions Status Indications Reaction Description Data Source(s) Metronidazole 500 MG Oral Tablet metronidazole 500 mg tablet metronidazole 500 mg tablet completed metronidazol e 500 MG Oral Tablet [facility]) 24 HR Bupropion Hydrochloride 150 MG Ext ended Release Oral Tablet bupropion HCl XL 150 mg 24 hr tablet, extended release bupropion HCl XL 150 mg 24 hr tablet, extended release completed 24 HR bupropion hydrochloride 150 MG Extended Release Oral Tablet [facility]) Fluoxetine 10 MG Oral Capsule fluoxetine 10 mg capsule fluox etine 10 mg capsule completed fluoxetine 10 MG Oral Capsule [facility] ([facility]) 12 HR Guaifenesin 600 MG Extended Releas e Oral Tablet Mucus Relief ER 600 mg tablet, extended release Mucus Relief ER 600 mg tablet, extended release completed 12 HR guaifenesin 60 0 MG Extended Release Oral Tablet [facility]N ([facility]) Prazosin 1 MG Oral Capsule prazosin 1 mg capsule prazosin 1 mg capsule completed prazosin 1 MG Oral Capsul e [facility]) 12 HR Guaifenesin 600 MG Extended Releas e Oral Tablet Mucus Relief ER 600 mg tablet, extended release Mucus Relief ER 600 mg tablet, extended release completed 12 HR guaifenesin 60 0 MG Extended Release Oral Tablet KILN ([facility]) meloxicam 7.5 MG Oral Tablet meloxicam 7.5 mg tablet meloxicam 7 .5 mg tablet completed meloxicam 7.5 MG Oral Tablet [facility]N ([facility]) Cyclobenzaprine hydrochloride 10 MG Oral Tablet cyclob enzaprine 10 mg tablet cyclobenzaprine 10 mg tablet completed cyclobenzaprine hydrochloride 10 MG Oral Tablet [facility]) Prazosin 1 MG Oral Capsule prazosin 1 mg capsule prazosin 1 mg capsule completed prazosin 1 MG Oral Capsul e PIERCE ([facility]) Metronidazole 500 MG Oral Tablet metronidazole 500 mg tablet metronidazole 500 mg tablet completed metronidazol e 500 MG Oral Tablet [facility] ([facility]) Metronidazole 500 MG Oral Tablet metronidazole 500 mg tablet metronidazole 500 mg tablet completed metronidazol e 500 MG Oral Tablet [facility] ([facility]) Fluoxetine 10 MG Oral Capsule fluoxetine 10 mg capsule fluox etine 10 mg capsule completed fluoxetine 10 MG Oral Capsule [facility] ([facility]) 12 HR Guaifenesin 600 MG Extended Releas e Oral Tablet Mucus Relief ER 600 mg tablet, extended release Mucus Relief ER 600 mg tablet, extended release completed 12 HR guaifenesin 60 0 MG Extended Release Oral Tablet K[facility]N ([facility]) meloxicam 7.5 MG Oral Tablet meloxicam 7.5 mg tablet meloxicam 7 .5 mg tablet completed meloxicam 7.5 MG Oral Tablet [facility] ([facility]) doxycycline hyclate 100 MG Oral Tablet doxycycline hyc late 100 mg tablet doxycycline hyclate 100 mg tablet comp leted doxycycline hyclate 100 MG Oral Tablet [facility] ([facility]) doxycycline hyclate 100 MG Oral Tablet doxycycline hyc late 100 mg tablet doxycycline hyclate 100 mg tablet comp leted doxycycline hyclate 100 MG Oral Tablet [facility] ([facility]) Metronidazole 500 MG Oral Tablet metronidazole 500 mg tablet metronidazole 500 mg tablet completed metronidazol e 500 MG Oral Tablet [facility] ([facility]) Azithromycin 250 MG Oral Tablet azithromycin 250 mg ta blet azithromycin 250 mg tablet completed azithromycin 25 0 MG Oral Tablet [facility] ([facility]) Cyclobenzaprine hydrochloride 10 MG Oral Tablet cyclob enzaprine 10 mg tablet cyclobenzaprine 10 mg tablet completed cyclobenzaprine hydrochloride 10 MG Oral Tablet [facility] ([facility]) Prednisone 10 MG Oral Tablet prednisone 10 mg tablet prednisone 10 mg tablet completed prednisone 10 MG Oral Tablet [facility] ([facility]) Prazosin 1 MG Oral Capsule prazosin 1 mg capsule prazosin 1 mg capsule completed prazosin 1 MG Oral Capsul e [facility] ([facility]) Prednisone 10 MG Oral Tablet prednisone 10 mg tablet prednisone 10 mg tablet completed prednisone 10 MG Oral Tablet [facility] ([facility]) doxycycline hyclate 100 MG Oral Tablet doxycycline hyc late 100 mg tablet doxycycline hyclate 100 mg tablet comp leted doxycycline hyclate 100 MG Oral Tablet [facility] ([facility]) Prednisone 10 MG Oral Tablet prednisone 10 mg tablet prednisone 10 mg tablet completed prednisone 10 MG Oral Tablet [facility] ([facility]) Fluoxetine 10 MG Oral Capsule fluoxetine 10 mg capsule fluox etine 10 mg capsule completed fluoxetine 10 MG Oral Capsule [facility] ([facility]) Azithromycin 250 MG Oral Tablet azithromycin 250 mg ta blet azithromycin 250 mg tablet completed azithromycin 25 0 MG Oral Tablet [facility] ([facility]) Fluoxetine 10 MG Oral Capsule fluoxetine 10 mg capsule fluox etine 10 mg capsule completed fluoxetine 10 MG Oral Capsule [facility] ([facility]) meloxicam 7.5 MG Oral Tablet meloxicam 7.5 mg tablet meloxicam 7 .5 mg tablet completed meloxicam 7.5 MG Oral Tablet [facility] ([facility]) 24 HR Bupropion Hydrochloride 150 MG Ext ended Release Oral Tablet bupropion HCl XL 150 mg 24 hr tablet, extended release bupropion HCl XL 150 mg 24 hr tablet, extended release completed 24 HR bupropion hydrochloride 150 MG Extended Release Oral Tablet [facility] ([facility]) Cyclobenzaprine hydrochloride 10 MG Oral Tablet cyclob enzaprine 10 mg tablet cyclobenzaprine 10 mg tablet completed cyclobenzaprine hydrochloride 10 MG Oral Tablet [facility] ([facility]) Prazosin 1 MG Oral Capsule prazosin 1 mg capsule prazosin 1 mg capsule completed prazosin 1 MG Oral Capsul e [facility] ([facility]) 24 HR Bupropion Hydrochloride 150 MG Ext ended Release Oral Tablet bupropion HCl XL 150 mg 24 hr tablet, extended release bupropion HCl XL 150 mg 24 hr tablet, extended release completed 24 HR bupropion hydrochloride 150 MG Extended Release Oral Tablet [facility] ([facility]) doxycycline hyclate 100 MG Oral Tablet doxycycline hyc late 100 mg tablet doxycycline hyclate 100 mg tablet comp leted doxycycline hyclate 100 MG Oral Tablet [facility] ([facility]) 24 HR Bupropion Hydrochloride 150 MG Ext ended Release Oral Tablet bupropion HCl XL 150 mg 24 hr tablet, extended release bupropion HCl XL 150 mg 24 hr tablet, extended release completed 24 HR bupropion hydrochloride 150 MG Extended Release Oral Tablet [facility] ([facility]) 12 HR Guaifenesin 600 MG Extended Releas e Oral Tablet Mucus Relief ER 600 mg tablet, extended release Mucus Relief ER 600 mg tablet, extended release completed 12 HR guaifenesin 60 0 MG Extended Release Oral Tablet [facility] ([facility]) Cyclobenzaprine hydrochloride 10 MG Oral Tablet cyclob enzaprine 10 mg tablet cyclobenzaprine 10 mg tablet completed cyclobenzaprine hydrochloride 10 MG Oral Tablet [facility] ([facility]) meloxicam 7.5 MG Oral Tablet meloxicam 7.5 mg tablet meloxicam 7 .5 mg tablet completed meloxicam 7.5 MG Oral Tablet [facility] ([facility]) Azithromycin 250 MG Oral Tablet azithromycin 250 mg ta blet azithromycin 250 mg tablet completed azithromycin 25 0 MG Oral Tablet [facility] ([facility]) Azithromycin 250 MG Oral Tablet azithromycin 250 mg ta blet azithromycin 250 mg tablet completed azithromycin 25 0 MG Oral Tablet [facility] ([facility]) Prednisone 10 MG Oral Tablet prednisone 10 mg tablet prednisone 10 mg tablet completed prednisone 10 MG Oral Tablet [facility] ([facility]) Insurance Providers Payer name Policy type / Coverage type Policy ID Covered democrat ID Covered democrat's relationship to carrillo Policy [place] Plan Information EMEDNY [id number] SP [id number] KIKO [id number] SP [id number] [place]ARE [place] O [id number] S [id number] Medicaid S [id number] S [id number] Managed Care [place] P [id number] S [id number] Medicaid S [id number] S [id number] MEDICAID [id number] SP [id number] Self Pay P UNAVAILABLE S UNAVAILA BLE Medicaid S [id number] S [id number] Managed Care [place] P [id number] S [id number] Medicaid S [id number] S [id number] ANS-Medicaid [id number] ANSI-Medicaid [id number] ANSI-Commercial [id number] Medicaid S UNAVAILABLE S UNAVAILA ЕЛЕНА KIKO [id number] SP [id number] [facility] [id number] SP [id number] [facility] [id number] SP [id number] [facility] Health Maintenance Organization (HMO) [id number] Self [id number] [place] [id number] SP [id number] [facility] [id number] SP [id number] [facility] [id number] SP [id number] Problems, Conditions, and Diagnoses Code Display Name Description Problem Type Effective Dates Data Source(s) 932730590 Unspecified abnormal cytolog ical findings in specimens from cervix uteri Unspecified abnormal cytological findings in specimens from cervix uteri 01/16/2020 09:43:03 PM EDT [facility] [id number] Evaluation finding Evaluation Finding Problem 01/2020 12:00:00 AM EDT [facility] ([facility]) [id number] Evaluation finding Evaluation Finding Problem 01/2020 12:00:00 AM EDT [facility] ([facility]) [id number] Evaluation finding Evaluation Finding Problem 01/2020 12:00:00 AM EDT [facility] ([facility]) 367804004 Evaluation finding Evaluation Finding Problem 01/2020 12:00:00 AM EDT [facility] ([facility]) 041.9 Bacterial vaginosis Bacterial vaginosis 020 04:00:20 PM EDT [facility] V76.2 Screening for malignant neoplasms of the cervix Screening for malignant neoplasms of the cervix 12/16/2019 03:23:41 PM EDT [facility] [id number] Acute vaginitis Acute Vaginitis Problem 12/16/2019 12:0 0:00 AM EDT KIL[facility] ([facility]) 33606734 Acute vaginitis Acute Vaginitis Problem 12/16/2019 12:0 0:00 AM EDT [facility]) 75959903 Acute vaginitis Acute Vaginitis Problem 12/16/2019 12:0 0:00 AM EDT KIL[facility] ([facility]) 87807800 Acute vaginitis Acute Vaginitis Problem 12/16/2019 12:0 0:00 AM EDT KILN ([facility]) 23517015 Posttraumatic stress disorder Posttraumatic Stress Dis order Problem 11/23/2019 12:00:00 AM EDT PIER[facility] ([facility]) 83775206 Posttraumatic stress disorder Posttraumatic Stress Dis order Problem 11/23/2019 12:00:00 AM EDT K[facility] ([facility]) 46188856 Posttraumatic stress disorder Posttraumatic Stress Dis order Problem 11/23/2019 12:00:00 AM EDT [facility] ([facility]) 06797194 Posttraumatic stress disorder Posttraumatic Stress Dis order Problem 11/23/2019 12:00:00 AM EDT [facility] ([facility]) 786.2 Cough Cough 11/10/2019 10:42:50 AM ED T [facility] 32825637 Cough Cough Problem 11/10/2019 12:00:00 AM ED T [facility] ([facility]) 11163170 Cough Cough Problem 11/10/2019 12:00:00 AM ED T [facility] ([facility]) 82936841 Cough Cough Problem 11/10/2019 12:00:00 AM ED T [facility] ([facility]) 57162292 Cough Cough Problem 11/10/2019 12:00:00 AM ED T [facility] ([facility]) 309.4 ADJUSTMENT DISORDER, W/ MIXED ANXIETY AN D DEPRESSED MOOD ADJUSTMENT DISORDER, W/ MIXED ANXIETY AND DEPRESSED MOOD 10/27/2019 03: 35:12 PM EDT [facility] [id number] Adjustment disorder with mixed disturban ce of emotions AND conduct 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 10/27/2019 12:00:00 AM EDT [facility] ([facility]) 15258702 Adjustment disorder with mixed disturban ce of emotions AND conduct 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 10/27/2019 12:00:00 AM EDT [facility] ([facility]) 51234006 Adjustment disorder with mixed disturban ce of emotions AND conduct 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 10/27/2019 12:00:00 AM EDT [facility] ([facility]) 75813969 Adjustment disorder with mixed disturban ce of emotions AND conduct 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 10/27/2019 12:00:00 AM EDT [facility] ([facility]) F12.90 Cannabis use, unspecified, uncomplicated Cannabis use, unspecified, uncomplicated 10/15/2019 03:50:05 PM EDT [facility] 10629556 Cannabis abuse Cannabis Abuse Problem 10/15/2019 12:00: 00 AM EDT [facility] ([facility]) 37204276 Cannabis abuse Cannabis Abuse Problem 10/15/2019 12:00: 00 AM EDT [facility] ([facility]) 02903210 Cannabis abuse Cannabis Abuse Problem 10/15/2019 12:00: 00 AM EDT [facility] ([facility]) 57285920 Cannabis abuse Cannabis Abuse Problem 10/15/2019 12:00: 00 AM EDT [facility] ([facility]) 786.09 Dyspnea on exertion Dyspnea on exertion 020 05:20:54 AM EST [facility] [id number] Pain in right hip joint Pain in right hip joint 07/01/2019 05:20:54 AM EST [facility] [id number] Pain in right hip joint Pain in Right Hip Joint Pro blem 06/30/2019 12:00:00 AM EST [facility] ([facility]) [id number] Dyspnea Dyspnea Problem 06/30/2019 12:00:00 AM RODGER Brittany [facility] ([facility]) [id number] Pain in right hip joint Pain in Right Hip Joint Pro blem 06/30/2019 12:00:00 AM EST [facility] ([facility]) [id number] Dyspnea Dyspnea Problem 06/30/2019 12:00:00 AM RODGER PELAYO ([facility]) [id number] Pain in right hip joint Pain in Right Hip Joint Pro blem 06/30/2019 12:00:00 AM EST [facility] ([facility]) 918869407 Dyspnea Dyspnea Problem 06/30/2019 12:00:00 AM RODGER PELAYO ([facility]) [id number] Pain in right hip joint Pain in Right Hip Joint Pro blem 06/30/2019 12:00:00 AM MOSES PELAYO ([facility]) [id number] Dyspnea Dyspnea Problem 06/30/2019 12:00:00 AM RODGER PELAYO ([facility]) 782.0 Paresthesia of lower extremity Paresthesia of lower ex tremity 05/18/2019 06:01:21 PM [facility] 782.0 Paresthesia of upper limb Paresthesia of upper limb 05/18/2019 06:01:21 PM [facility] [id number] Tingling of skin Tingling of Skin Problem 05/18/2019 12 :00:00 AM EST PIECRE ([facility]) [id number] Tingling of skin Tingling of Skin Problem 05/18/2019 12 :00:00 AM EST [facility]ER[facility] ([facility]) 364517326 Tingling of skin Tingling of Skin Problem 05/18/2019 12 :00:00 AM EST [facility] ([facility]) [id number] Tingling of skin Tingling of Skin Problem 05/18/2019 12 :00:00 AM EST [facility] ([facility]) Surgeries/Procedures Procedure Description Date Indications Data Source(s) RADEX FOOT COMPLETE MINIMUM 3 VIEWS 03/31/2020 12:00:0 0 AM EDT [facility] ([facility] ) RADEX SPINE LUMBOSACRAL MINIMUM 4 VIEWS 07/22/2019 12: 00:00 AM EST [facility] ([facility] ) X-Ray Hip Unilateral With Pelvis 2-3 Views 07/22/2019 12:00:00 AM EST [facility] ([facility] ) Results ID Date Data Source [id number] 05/18/2020 10:30:00 AM EST [facility] ([facility]) Name Value Range Interpretation Code Description Data Shereen rce(s) Supporting Document(s) Hemoglobin A1c/Hemoglobin.total in Blood 5.7 % normal Hemoglobin a1C [facility] ([facility]) estimated average glucose 117 mg/dL 60-110 Above high norm al Estimated Average Glucose [facility]N ([facility]) ID Date Data Source [id number] 05/18/2020 10:30:00 AM EST [facility] ([facility]) Name Value Range Interpretation Code Description Data Shereen rce(s) Supporting Document(s) total 25(oh) vitamin D 15.3 NG/mL 30.0-100.0 Below low normal T otal 25(Oh) Vitamin D PIECRE ([facility]) ID Date Data Source [id number] 05/18/2020 10:30:00 AM EST [facility] ([facility]) Name Value Range Interpretation Code Description Data Shereen rce(s) Supporting Document(s) thyroid stimulating hormone 4.240 uIU/mL 0.358-3.740 Above high no rmal Thyroid Stimulating Hormone [facility] ([facility]) free T4 1.27 NG/dL 0.76-1.46 normal Free T4 [facility] ([facility]) ID Date Data Source [id number] 05/18/2020 10:30:00 AM EST [facility] ([facility]) Name Value Range Interpretation Code Description Data Shereen rce(s) Supporting Document(s) triglycerides level 165 mg/dL <150 Above high normal Triglycer ides Level [facility] ([facility]) cholesterol level 213 mg/dL <200 Above high normal Cholesterol Level [facility] ([facility]) Cholesterol in LDL [Mass/volume] in Serum or Plasma 130 mg/dL <100 Above high normal LDL Cholesterol [facility] ([facility]) non-HDL-C 163 mg/dL normal Non-hdl-c [facility] ([facility]) HDL cholesterol 50 mg/dL >40 normal HDL Cholesterol ATHE NA ([facility]) cholesterol risk ratio <5 normal Cholesterol R isk Ratio [facility] ([facility]) ID Date Data Source [id number] 05/18/2020 10:30:00 AM [facility] Name Value Range Interpretation Code Description Data Shereen rce(s) Supporting Document(s) blood urea nitrogen 20 mg/dL 7-18 Above high normal Blood Ure a Nitrogen [facility] ([facility]) glucose, fasting 109 mg/dL 70-100 Above high normal Glucose, Fas ting [facility] ([facility]) creatinine for GFR 0.78 mg/dL 0.55-1.30 normal Creatinine for GF R [facility] ([facility]) sodium level 142 mEq/L 136-145 normal Sodium Level [facility]ER[facility] ([facility]) potassium serum 3.6 mEq/L 3.5-5.1 normal Potassium Serum ATHE ([facility]) glomerular filtration rate > 60.0 >60 normal Glomerula r Filtration Rate [facility]ERCE ([facility]) calcium level 8.9 mg/dL 8.5-10.1 normal Calcium Level [facility]ER[facility] ( [facility]) carbon dioxide level 27 mEq/L 21-32 normal Carbon Dioxide Level [facility] ([facility]) anion gap 3 mEq/L 8-16 Below low normal Anion Gap [facility] ( [facility]) chloride level 112 mEq/L 98-107 Above high normal Chloride Level [facility] ([facility]) ALT/SGPT 45 U/L 12-78 normal ALT/SGPT [facility] ([facility]) bilirubin,total 0.4 mg/dL 0.2-1.0 normal Bilirubin,total ATHE ([facility]) alkaline phosphatase 131 U/L 45-117 Above high normal Alkaline Phosphatase [facility] ([facility]) AST/SGOT 20 U/L 7-37 normal AST/SGOT [facility] ([facility]) albumin/globulin ratio 1.2-2.2 normal Albumin/globu franki Ratio [facility] ([facility]) albumin 4.0 gm/dL 3.2-5.2 normal Albumin [facility] ([facility]) total protein 7.3 gm/dL 6.4-8.2 normal Total Protein [facility] ( [facility]) ID Date Data Source [id number] 05/18/2020 10:30:00 AM EST [facility] ([facility]) Name Value Range Interpretation Code Description Data Shereen rce(s) Supporting Document(s) white blood count 8.7 10 4.0-10.0 normal White Blood Count [facility] ([facility]) hemoglobin 13.9 g/dL 12.0-15.5 normal Hemoglobin [facility] ([facility]) red blood count 4.80 10 4.00-5.40 normal Red Blood Count ATHE NA ([facility]) mean corpuscular volume 85.8 fL 80.0-96.0 normal Mean Corpusc ular Volume [facility] ([facility]) mean corpuscular hemoglobin 29.0 pg 27.0-33.0 normal Mean Corpuscular Hemoglobin [facility] ([facility]) hematocrit 41.2 % 36.0-47.0 normal Hematocrit [facility] ([facility]) mean corpuscular HGB conc 33.7 g/dL 32.0-36.5 normal Mean Corpu scular HGB Conc [facility] ([facility]) platelet count, automated 271 10 150-450 normal Platelet C ount, Automated [facility] ([facility]) red cell distribution width 12.0 % 11.5-14.5 normal Red Cell Distribution Width [facility] ([facility]) lymph % 26.0 % 24.0-44.0 normal Lymph % [facility] ([facility]) neutrophils % 65.9 % 36.0-66.0 normal Neutrophils % [facility] ( [facility]) mono % 6.8 % 0.0-5.0 Above high normal [place] % [facility] ([facility]) baso % 0.3 % 0.0-1.0 normal Baso % [facility] ([facility]) immature granulocyte % 0.2 % 0-3.0 normal Immature Gran ulocyte % [facility] ([facility]) eos % 0.8 % 0.0-3.0 normal Eos % [facility] ([facility]) nucleated red blood cell % 0.0 % 0-0 normal Nucleated Red Blood Cell % [facility] ([facility]) neutrophils # 5.8 10 1.5-8.5 normal Neutrophils # [facility] ( [facility]) lymph # 2.3 10 1.5-5.0 normal Lymph # [facility] ([facility]) mono # 0.6 10 0.0-0.8 normal [place] # [facility] ([facility]) eos # 0.1 10 0.0-0.5 normal Eos # [facility] ([facility]) baso # 0.0 10 0.0-0.2 normal Baso # [facility] ([facility]) ID Date Data Source [id number] 05/18/2020 10:30:00 AM EST [facility] ([facility]) Name Value Range Interpretation Code Description Data Shereen rce(s) Supporting Document(s) Hemoglobin A1c/Hemoglobin.total in Blood 5.7 % normal Hemoglobin a1C [facility] ([facility]) estimated average glucose 117 mg/dL 60-110 Above high norm al Estimated Average Glucose [facility] ([facility]) ID Date Data Source [id number] 05/18/2020 10:30:00 AM EST [facility] ([facility]) Name Value Range Interpretation Code Description Data Shereen rce(s) Supporting Document(s) total 25(oh) vitamin D 15.3 NG/mL 30.0-100.0 Below low normal T otal 25(Oh) Vitamin D [facility] ([facility]) ID Date Data Source [id number] 05/18/2020 10:30:00 AM EST [facility] ([facility]) Name Value Range Interpretation Code Description Data Shereen rce(s) Supporting Document(s) thyroid stimulating hormone 4.240 uIU/mL 0.358-3.740 Above high no rmal Thyroid Stimulating Hormone [facility] ([facility]) free T4 1.27 NG/dL 0.76-1.46 normal Free T4 [facility] ([facility]) ID Date Data Source [id number] 05/18/2020 10:30:00 AM EST [facility] ([facility]) Name Value Range Interpretation Code Description Data Shereen rce(s) Supporting Document(s) HDL cholesterol 50 mg/dL >40 normal HDL Cholesterol ATHE NA ([facility]) cholesterol level 213 mg/dL <200 Above high normal Cholesterol Level [facility] ([facility]) triglycerides level 165 mg/dL <150 Above high normal Triglycer ides Level [facility] ([facility]) non-HDL-C 163 mg/dL normal Non-hdl-c [facility] ([facility]) Cholesterol in LDL [Mass/volume] in Serum or Plasma 130 mg/dL <100 Above high normal LDL Cholesterol [facility] ([facility]) cholesterol risk ratio <5 normal Cholesterol R isk Ratio [facility] ([facility]) ID Date Data Source [id number] 05/18/2020 10:30:00 AM EST [facility] ([facility]) Name Value Range Interpretation Code Description Data Shereen rce(s) Supporting Document(s) blood urea nitrogen 20 mg/dL 7-18 Above high normal Blood Ure a Nitrogen [facility]RE[facility] ([facility]) creatinine for GFR 0.78 mg/dL 0.55-1.30 normal Creatinine for GF R [facility] ([facility]) glomerular filtration rate > 60.0 >60 normal Glomerula r Filtration Rate [facility] ([facility]) glucose, fasting 109 mg/dL 70-100 Above high normal Glucose, Fas ting [facility] ([facility]) potassium serum 3.6 mEq/L 3.5-5.1 normal Potassium Serum ATHE NA ([facility]) carbon dioxide level 27 mEq/L 21-32 normal Carbon Dioxide Level [facility] ([facility]) sodium level 142 mEq/L 136-145 normal Sodium Level [facility] ([facility]) chloride level 112 mEq/L 98-107 Above high normal Chloride Level [facility] ([facility]) anion gap 3 mEq/L 8-16 Below low normal Anion Gap [facility] ( [facility]) ALT/SGPT 45 U/L 12-78 normal ALT/SGPT [facility] ([facility]) AST/SGOT 20 U/L 7-37 normal AST/SGOT [facility] ([facility]) calcium level 8.9 mg/dL 8.5-10.1 normal Calcium Level [facility] ( [facility]) bilirubin,total 0.4 mg/dL 0.2-1.0 normal Bilirubin,total ATHE ([facility]) total protein 7.3 gm/dL 6.4-8.2 normal Total Protein PIERCE ( [facility]) alkaline phosphatase 131 U/L 45-117 Above high normal Alkaline Phosphatase PIERCE ([facility]) albumin 4.0 gm/dL 3.2-5.2 normal Albumin PIERCE ([facility]) albumin/globulin ratio 1.2-2.2 normal Albumin/globu franki Ratio PIERCE ([facility]) ID Date Data Source [id number] 05/18/2020 10:30:00 AM EST KILN ([facility]) Name Value Range Interpretation Code Description Data Shereen rce(s) Supporting Document(s) white blood count 8.7 10 4.0-10.0 normal White Blood Count PIERCE ([facility]) hemoglobin 13.9 g/dL 12.0-15.5 normal Hemoglobin PIERCE ([facility]) red blood count 4.80 10 4.00-5.40 normal Red Blood Count ATHE ([facility]) mean corpuscular HGB conc 33.7 g/dL 32.0-36.5 normal Mean Corpu scular HGB Conc PIERCE ([facility]) mean corpuscular hemoglobin 29.0 pg 27.0-33.0 normal Mean Corpuscular Hemoglobin PIERCE ([facility]) hematocrit 41.2 % 36.0-47.0 normal Hematocrit PIERCE ([facility]) mean corpuscular volume 85.8 fL 80.0-96.0 normal Mean Corpusc ular Volume PIERCE ([facility]) red cell distribution width 12.0 % 11.5-14.5 normal Red Cell Distribution Width PIERCE ([facility]) platelet count, automated 271 10 150-450 normal Platelet C ount, Automated PIERCE ([facility]) neutrophils % 65.9 % 36.0-66.0 normal Neutrophils % PIERCE ( [facility]) lymph % 26.0 % 24.0-44.0 normal Lymph % PIERCE ([facility]) mono % 6.8 % 0.0-5.0 Above high normal [place] % PIERCE ([facility]) eos % 0.8 % 0.0-3.0 normal Eos % KILN ([facility]) baso % 0.3 % 0.0-1.0 normal Baso % KILN ([facility]) immature granulocyte % 0.2 % 0-3.0 normal Immature Gran ulocyte % KILN ([facility]) nucleated red blood cell % 0.0 % 0-0 normal Nucleated Red Blood Cell % KILN ([facility]) eos # 0.1 10 0.0-0.5 normal Eos # KILN ([facility]) lymph # 2.3 10 1.5-5.0 normal Lymph # KILN ([facility]) mono # 0.6 10 0.0-0.8 normal [place] # KILN ([facility]) neutrophils # 5.8 10 1.5-8.5 normal Neutrophils # KILN ( [facility]) baso # 0.0 10 0.0-0.2 normal Baso # KILN ([facility]) ID Date Data Source [id number] 12/17/2019 10:19:04 AM EDT [facility] Labs In-House Blood TestsDate/Time Colle cted: December 17, 2019 8:55 AMTest Result Reference Range Normal ValueComments: blood draw done in office, taken from left ac, tolerated well.Saniya Deshpande, December 17, 2019 10:19 AMAssessment & Plan Orders:[id number] Vst-Est Level I [CPT-54029] 90413 - Venipuncture [CPT-48782] Name Value Range Interpretation Code Description Data Shereen rce(s) Supporting Document(s) ID Date Data Source [id number] 12/17/2019 08:55:00 AM EDT [facility] Name Value Range Interpretation Code Description Data Shereen rce(s) Supporting Document(s) BG FASTING 94 mg/dL 70-100 N [facility] ID Date Data Source [id number] 12/17/2019 08:55:00 AM EDT [facility] Name Value Range Interpretation Code Description Data Shereen rce(s) Supporting Document(s) HGBA1C 5.7 % N [facility] ID Date Data Source [id number] 12/17/2019 08:55:00 AM EDT [facility] Name Value Range Interpretation Code Description Data Shereen rce(s) Supporting Document(s) HCT 39.1 % 36.0-47.0 N [facility] HGB 13.1 g/dL 12.0-15.5 N [facility] MCH 33.5 G/DL pg 32.0-36.5 [facility] MCHC 29.3 PG % 27.0-33.0 [facility] PLATELETS 275 10 10*3/mm3 150-450 N [facility] RBC 4.47 10 10*6/mm3 4.00-5.40 [facility] RDW 12.8 % 11.5-14.5 [facility] WBC TOTAL 7.0 4.0-10.0 N [facility] ID Date Data Source [id number] 12/16/2019 02:20:52 PM EDT [facility] Measurements & CalculationsHeight: 67 inches (5 ft. 7 in.) 170.18 cm Weight: 197 pounds 3 oz. 89.63 kg Body Mass Index (BMI): 31.00BMI Interpretation: ObeseBody Surface Area (BSA): 2.01Weight Management Education Done (Nutrition/Physical Activity)Vital SignsTemperature: 98.0F oral Pulse Rate: 89 beats/minuteRespirato ry Rate: 18 respirations/minuteBlood Pressure: 118/76 right arm sitting automaticO2 Saturation: 98% room airVital Signs performed by: Armaan Retana LPN, December 16, 2019 2:35 PMInitial Intake Information From: patientRoom #: 8Infectious Disease / Travel ScreeningRecent travel for you or any close contacts? NoHave you had any close contact with anyone diagnosed with or under investigation for COVID-19 (coronavirus)? NoFever? NoRespiratory symptoms: cough, cold, congestion, shortness of breath, difficulty breathing? NoLoss of smell? NoLoss of taste? NoSmoking, Tobacco, Vaping or Smoke Exposure StatusSmoke Status: current every day smokerTobacco Use: YesAdv to Quit: YesDo you vape? NoPassive Smoke Exposure: YesPassive Smoke Exposure comments: boyfriend Menstrual HistoryLast Menstrual Period (LMP): 12/08/2019Age at Menarche: 11Any possibility of ? YesComments: not on Healthcare HistorySince your last office visit...Have you been admitted to the hospital? N oHave you been to an emergency room (ER) or urgent care clinic? NoHave you seen another healthcare provider? NoHave you seen a dentist? NoIntake performed by: Armaan Retana LPN, December 16, 2019 2:25 PMRate Your HealthIn general, would you say your health is? FairPain AssessmentAre you currently having any pain which... You would like your provider to address? Yes Affects your activity level? YesDepression Screening - PHQ-2Over the last two weeks, have you... Had little interest or pleasure in doing things? Not at all Been feeling down, depressed, or hopeless? Not at all PHQ-2 Score: 0Anxiety Screening - DALIA-2Over the last two weeks, have you been... Feeling nervous, anxious, or on edge? Not at all Unable to stop or control worrying? Not at all DALIA-2 Score: 0Food InsecurityWithin the past year...Did you worry whether your food would run out before you got money to buy more? NoWas there a time when the food you bought didn't last and you didn't have money to get more? NoPatient Learning & Communication Needs Preferred learning style: visualPossible barriers: nonePatient's Language used in visit: YesLanguage: [place] Pain AssessmentPain ScaleNumeric Rating Scale: 9 / 10Location: right hipDuration: 4 months Frequency: DailyCharacter/Quality: aching, sharp and throbbingIs the pain radiating? NoScreening, Brief Intervention, & Referral to Treatment (SBIRT)Pre- Screening Questions How many times have you have 4 or more drinks in a day? 0How many times have you used an illegal drug or used a prescription medication for a non-medical reason? 365Performed by: Armaan Retana LPN, December 16, 2019 2:27 PMDAST Have you used drugs other than those required for medical reasons? Yes Do you abuse more than one drug at a time? No Are you always able to stop using drugs when you want to? Yes Have you ever had blackouts or flashbacks as a result of drug use? No Do you ever feel bad or guilty about your drug use? No Does your spouse (or parents) ever complain about your involvement with your drugs? No Have you neglected your family because of your use of drugs? No Have you engaged in illegal activities in order to obtain drugs? No Have you ever experienced withdrawal symptoms (felt sick) when you stopped taking drugs? No Have you had medical problems as a result of your drug use (e.g. memory loss, hepatitis, convulsions, bleeding)? NoToday's Results: DAST Score: 1 DAST Interpretation: Brief Intervention Performed by: Armaan Retana LPN, December 16, 2019 2:28 PMPatient History Medical History:AsthmaCervical CancerSurgical History:earsjawboneteeth removalcyst removal from mouthcollarboneFamily History:Heart disease (Mother)Cancer - Breast (Maternal Grandmother)Social/Personal History: Age of First Use: 15Advised to Quit/Tobacco Education: YesOB Past History History Total Preg.: 2 Full Term: 0 Premature: 0 Elect Ab: 0 Spontaneous Ab: 2 Ectopics: 0 Multiple Births: 0 LivinMenstrual History Age at Menarche: 11LMP: 12/08/2019Use Contraception? NoExperienced Menopause? NoComments: Last PAP 2012 Chief ComplaintPAP smear RM 8 History of Present Illness (HPI)34 yr old female Pt here today for PAP Smear. Pt state she has right hip pain x 4 months. Pt states she is taking all medications with no side effect or issues. Pt state last PAP was in 2012. Pt states still right hip pain ongoing. Patient states havent been able to get in with ortho since the [facility]. HPI performed by: Carolynn ABBASI, December 16, 2019 3:03 PMProblem ReviewProblem List was reviewed and/or updated during this visit.Medication Reconciliation & ReviewMedication List was reviewed and/or updated during this visit, including review of any esyv-tdz-lnstxmi medications, herbal therapies, and/or supplements.Allergy ReviewAllergy List was reviewed and/or updated during this visit.Adult Preventive CareProvider Calculated and Reviewed all Clinical Protocols for patient today. Screening Tobacco Screening: Smoking Status: current every day smoker (12/16/2019) Tobacco Use: Currently (12/16/2019) Advised to Quit: Yes (12/16/2019)Labs/Meds/Other Counseling-Nutrition and Physical Activity:BMI Interpretation: Obese (12/16/2019) Counseling: Done (12/16/2019) Physical Activity: Done (12/16/2019)Review of Systems General: Denies loss of appetite, chills, dizziness, fatigue, fever, continued fever, headache, feeling ill, sweats, night sweats, sleep disturbances, weight loss. Eyes: Denies blurring of vision, double vision, irritation, discharge, vision loss, eye pain, eye swelling, droopy eyelid, sensitivity to light, redness, itching. Ears/No se/Throat: Denies earache, ear discharge, ringing in ears, decreased hearing, nasal congestion, nosebleeds, runny nose, sore throat, hoarseness, difficulty swallowing, dry mouth, tooth pain, bleeding gums, swollen glands. Cardiovascular: Denies chest pain, palpitations, feeling faint, trouble breathing w/exertion, SOB upon lying down, SOB at night, peripheral edema, elevated blood pressure, decreased heart rate. Respiratory: Denies cough, difficulty breathing, shortness of breath, excessive sputum, coughing up blood, wheezing, chest pain. Breast: Denies discoloration, tenderness, breast changes, breast lump, nipple discharge. Gastrointestinal: Denies nausea, vomiting, bleeding, burning, itching, irritation, cramps, diarrhea, constipation, pain or discomfort. Genitourinary: Denies urinary incontinence, pain with urination, burning with urination, urinary frequency, urinary hesitancy, urinary urgency, urinary urgency at night, incomplete emptying, blood in urine, absence of menstrual period, heavy menstrual period, prolonged menstrual period, pelvic pain, abnormal vaginal bleeding, painful intercourse, vaginal discharge. Musculoskeletal: Complains of joint pain. right hip pain. Skin: Denies rash, hives, redness, itching, dryness, nail changes, suspicious lesions, athlete's foot, rash on palms, rash on bottom of feet. Neurologic: Denies muscle impairment, weakness, numbness/tingling, seizures, slurred speech, feeling faint, tremors, vertigo, paralysis on one side, paralysis on both sides. Psychiatric: Complains of depression, anxiety. Denies memory loss, mental disturbance, suicidal ideation, homicidal ideation, hallucinations, paranoia, feeling stressed, hearing voices. Endocrine: Denies cold intolerance, heat intolerance, excessive thirst, excessive hunger, excessive urination, weight loss, weight gain. Physical ExamGeneral Appearance: well nourished, well hydrated, no acute distressEyes, External: conjunctivae and lids normal, EOMIRespiratory, Auscultation: clear to auscultation bilaterally; no rales, rhonchi, or wheezesRespiratory, Effort: no intercostal retractions or use of accessory musclesCardiovascular, Auscultation: S1, S2 audible; no murmur, rub, or gallop; RRRPeripheral Circulation: no clubbing, cyanosis, edema, or varicositiesAbdomen: pelvic tenderness on palpationExternal Genitalia: normal, no lesions or dischargeVulva: normal, no lesions or dischargeVagina: normal appearance, moderate thin vaginal discharge. No lesions; no evidence of cystocele or rectoceleCervix: normal appearance, no lesions or discharge, no cervical motion tenderness, no friabilityUterus: normal size and position, midline, mobileAdnexa: no masses or tendernessGait & Station: normalSkin, Inspection: no rashes, lesions, or ulcerationsOrientation: oriented to time, place, and personMood & Affect: no depression, anxiety, or agitationJudgment & Insight: intactRate Your HealthIn general, would you say your health is? FairAssessment & Plan Problems:Added: Screening for malignant neoplasms of the cervix (ICD-V76.2) (SSW52-R10.4) Assessment: Instructions: You have had your Pap smear with HPV testing done today. We should receive your result in 7- 10 days. we will contact you if results are concerning.Bacterial vaginosis (ICD- 041.9) (WFQ87-N16.0) Assessment: moderate amount of vaginal discharge , mid odor. will treat for BV Instructions: We have sent a prescription to your pharmacy today. Please take medication as prescribed. please report any major side effects. Please avoid alcohol use while taking this medication. Please try to maintain adequate intake of water daily.Assessed:Health Screening (ICD-V70.0) (ADP83-H75.9) Assessment: Instructions: STD/ screening done today.Pain in right hip joint (DQW57-B18.551) Assessment: Instructions: We have sent a prescription to your pharmacy today. Please take medications as prescribed. Please report any major side effects. Please call your orthopedic to schedule an appointment.Patient Instructions/Care Plan: Screening for malignant neoplasms of the cervix: You have had your Pap smear with HPV testing done today. We should receive your result in 7-10 days. we will contact you if results are concerning .Bacterial vaginosis: We have sent a prescription to your pharmacy today. Please take medication as prescribed. please report any major side effects. Please avoid alcohol use while taking this medication. Please try to maintain adequate intake of water daily.Health Screening: STD/ screening done today.Pain in right hip joint: We have sent a prescription to your pharmacy today. Please take medications as prescribed. Please report any major side effects. Please call your orthopedic to schedule an appointment. Plan developed in collaboration with patient and/or familyMedications:FLAGYL 500 MG ORAL TABLETCYCLOBENZAPRINE HCL 10 MG ORAL TABLETMINIPRESS 1 MG ORAL CAPSULEMELOXICAM 15 MG ORAL TABLETALEVE 220 MG ORAL TABLETCHANTIX CONTINUING MONTH BRADLEY 1 MG ORAL TABLETWELLBUTRIN XL 300 MG ORAL TABLET EXTENDED RELEASE 24 HOURPROAIR HFA 108 (90 BASE) MCG/ACT INHALATION AEROSOL SOLUTIONMedication Changes:Refilled:MELOXICAM 15 MG ORAL TABLET-take one tablet by mouth daily Qty: 30[Tablet] Refills: 2 Method: ElectronicNew Prescription:CYCLOBENZAPRINE HCL 10 MG ORAL TABLET-take one tablet by mouth twice daily as needed Qty: 60[Tablet] Refills: 0 Method: ElectronicFLAGYL 500 MG ORAL TABLET-take one tablet by mouth twice daily x 7 days. Qty: 14[Tablet] Refills: 0 Method: ElectronicChanged:From: ORAL MELOXICAM 7.5 MG ORAL TABLET Qty: [id number] Refills: 30[Tablet] To: MELOXICAM 15 MG ORAL TABLET-take one tablet by mouth daily Qty: 30[Tablet] Refills: 2Allergies:* PENICILLIN (Critical)Orders:Human Papillomavirus (HPV), high-risk types [CPT- 73707] Pap Smear [CPT-00355] Gonorrhea Culture [CPT-04347] Chlamydia Culture [CPT-95564] Preventive, Est, (18-39) [CPT-90922] Follow-Up Return to clinic: as sceduled as needed Clinical Visit Summary Completed Name Value Range Interpretation Code Description Data Shereen rce(s) Supporting Document(s) ID Date Data Source [id number] 11/10/2019 10:02:55 AM EDT [facility] Measurements & CalculationsHeight: 67 inches (5 ft. 7 in.) 170.18 cm Weight: 195 pounds 88.64 kg Body Mass Index (BMI): 30.65BMI Interpretation: ObeseBody Surface Area (BSA): 2.00Weight Management Education Done (Nutrition/Physical Activity)Vital SignsTemperature: 98.8FPulse Rate: 102 beats/minuteRespiratory Rate: 18 respirations/minuteBlood Pressure: 131/86 O2 Saturation: 97% Vital Signs performed by: Bria Haley MA, November 10, 2019 10:05 AMInitial Intake Information From: patientRoom #: 1Infectious Disease / Travel ScreeningRecent travel for you or any close contacts? NoHave you had any close contact with anyone diagnosed with or under investigation for COVID-19 (coronavirus)? NoFever? NoRespiratory symptoms: cough, cold, congestion, shortness of breath, difficulty breathing? YesLoss of smell? YesLoss of taste? YesSmoking, Tobacco, Vaping or Smoke Exposure StatusSmoke Status: current every day smokerTobacco Use: YesAdv to Quit: YesDo you vape? NoPassive Smoke Exposure: YesMenstrual HistoryLast Menstrual Period (LMP): 10/15/2019Healthcare HistorySince your last office visit...Have you been admitted to the hospital? NoHave you been to an emergency room (ER) or urgent care clinic? No - UC- BronchitisHave you seen another healthcare provider? NoHave you seen a dentist? NoIntake performed by: Bria Haley MA, November 10, 2019 10:04 AMRate Your HealthIn general, would you say your health is? FairPain AssessmentAre you currently having any pain which... You would like your provider to address? No Affects your activity level? NoDepression Screening - PHQ-2Over the last two weeks, have you... Had little interest or pleasure in doing things? Not at all Been feeling down, depressed, or hopeless? Not at all PHQ-2 Score: 0Anxiety Screening - DALIA-2Over the last two weeks, have you been... Feeling nervous, anxious, or on edge? Not at all Unable to stop or control worrying? Not at all DALIA-2 Score: 0Screening, Brief Intervention, & Referral to Treatment (SBIRT)Pre-Screening Questions How many times have you have 4 or more drinks in a day? 0How many times have you used an illegal drug or used a prescription medication for a non-medical reason? 0Performed by: Bria Haley MA, November 10, 2019 10:04 AMPatient History Medical History:AsthmaCervical CancerSurgical History:earsjawboneteeth removalcyst removal from mouthcollarboneFamily History:Heart disease (Mother)Cancer - Breast (Maternal Grandmother)Social/Personal History: Age of First Use: 15Advised to Quit/Tobacco Education: YesChief Complaintcough, sore throat, sob x one week History of Present Illness (HPI)Worse with time. Mild and temporary relief with over the counter sinus and cough medications and Albuterol inhaler. Sinus pressure and headaches. Cough productive of yellow sputum. Smokes and is is thinking bout quitting.HPI performed by: Vitor Fuentes MD, November 10, 2019 10:08 AMProblem ReviewProblem List was reviewed and/or updated during this visit.Medication Reconciliation & ReviewMedication List was reviewed and/or updated during this visit, including review of any blna-qqm-vflklgf medications, herbal therapies, and/or supplements.Allergy ReviewAllergy List was reviewed and/or updated during this visit.Adult Preventive CareProvider Calculated and Reviewed all Clinical Protocols for patient today. Screening Tobacco Screening: Smoking Status: current every day smoker (11/10/2019) Tobacco Use: Currently (11/10/2019) Advised to Quit: Yes (11/10/2019)Labs/Meds/Other Counseling-Nutrition and Physical Activity:BMI Interpretation: Obese (11/10/2019) Counseling: Done (11/10/2019) Physical Activity: Done (11/10/2019)Review of Systems General: Complains of fever. Denies chills, dizziness, fatigue. Up to 100 degrees.Cardiovascular: Denies chest pain. Respiratory: Denies shortness of breath. Gastrointestinal: Denies nausea, vomiting, diarrhea. Physical ExamGeneral Appearance: well nourished, well hydrated, no acute distressExternal Ears: normal, no lesions or deformitiesOtoscopy: canals clear, tympanic membranes intact, no fluid, light reflex intact bilaterallyExternal Nose: normal, no lesions or deformitiesNasal: mucosa, septum, and turbinates normal, nares patentLips/Teeth/Gums: normal dentition, no labial, tongue or mucosal lesions, no white patches, no swelling, no caries, no gingival hypertrophy, no bleeding gumsPharynx: tongue normal, posterior pharynx without erythema or exudate, no thrush/aphthous ulcerRespiratory, Auscultation: clear to auscultation bilaterally; no rales, rhonchi, or wheezesRespiratory, Effort: no intercostal retractions or use of accessory musclesCardiovascular, Auscultation: S1, S2 audible; no murmur, rub, or gallop; RRRGait & Station: normalSkin, Inspection: no rashes, lesions, or ulcerationsCervical Nodes: no adenopathyOrientation: oriented to time, place, and personMood & Affect: no depression, anxiety, or agitationJudgment & Insight: intactRate Your HealthIn general, would you say your health is? FairAssessment & Plan Problems:Added: Cough (ICD-786.2) (TTE10-B43) Assessment: Instructions: For more than one week and worsening.Likely bacterial URI.Doxycycline for one week.Recheck if persists or worsens.Patient Instructions/Care Plan: Cough: For more than one week and worsening.Likely bacterial URI.Doxycycline for one week.Recheck if persists or worsens. Plan developed in collaboration with patient and/or familyMedications:DOXYCYCLINE HYCLATE 100 MG ORAL TABLETMELOXICAM 7.5 MG ORAL TABLETALEVE 220 MG ORAL TABLETCHANTIX CONTINUING MONTH BRADLEY 1 MG ORAL TABLETWELLBUTRIN XL 300 MG ORAL TABLET EXTENDED RELEASE 24 HOURPROAIR HFA 108 (90 BASE) MCG/ACT INHALATION AEROSOL SOLUTIONMedication Changes:New Prescription:DOXYCYCLINE HYCLATE 100 MG ORAL TABLET-One po bid for 7 days Qty: 14[Tablet] Refills: 0 Method: ElectronicAllergies:* PENICILLIN (Critical)Orders:Adult - Ofc Vst, EST, Level III [CPT-61325] Medications:DOXYCYCLINE HYCLATE 100 MG ORAL TABLET (DOXYCYCLINE HYCLATE) One po bid for 7 days #14[Tablet] x 0 Route:ORAL Entered and Authorized by: Vitor Fuentes MD Method used: Electronically to [facility] (retail) [address] [place] [address] Note to Pharmacy: Route: ORAL; RxID: [id number] signed by Vitor Fuentes MD on 11/10/2019 at 10:42 AM Name Value Range Interpretation Code Description Data Shereen rce(s) Supporting Document(s) ID Date Data Source [id number] 10/15/2019 02:13:13 PM EDT [facility] Measurements & CalculationsHeight: 67 inches (5 ft. 7 in.) 170.18 cm Weight: 195 pounds 6 oz. 88.81 kg Body Mass Index (BMI): 30.71BMI Interpretation: ObeseBody Surface Area (BSA): 2.00Weight Management Education Done (Nutrition/Physical Activity)Vital SignsTemperature: 98.8FPulse Rate: 92 beats/minuteRespiratory Rate: 14 respirations/minuteBlood Pressure: 114/77 O2 Saturation: 98% Vital Signs performed by: Meron Newton LPN, October 15, 2019 2:18 PMVital Signs performed by: Meron Newton LPN, October 15, 2019 2:18 PMInitial Intake Information From: patientRoom #: 12Infectious Disease / Travel ScreeningRecent travel for you or any close contacts? NoHave you had any close contact with anyone diagnosed with or under investigation for COVID-19 (coronavirus)? NoFever? NoRespiratory symptoms: cough, cold, congestion, shortness of breath, difficulty breathing? YesLoss of smell? NoLoss of taste? NoSmoking, Tobacco, Vaping or Sm chad Exposure StatusSmoke Status: current some day smokerTobacco Use: YesAdv to Quit: YesDo you vape? NoPassive Smoke Exposure: YesPassive Smoke Exposure comments: Boyfriend Menstrual HistoryLast Menstrual Period (LMP): 10/15/2019Any possibility of ? NoHealthcare HistorySince your last office visit...Have you been admitted to the hospital? NoHave you been to an emergency room (ER) or urgent care clinic? NoHave you seen another healthcare provider? NoHave you seen a dentist? NoIntake performed by: Meron Newton LPN, October 15, 2019 2:23 PMRate Your HealthIn general, would you say your health is? FairPain AssessmentAre you currently having any pain which... You would like your provider to address? No Affects your activity level? NoDepression Screening - PHQ-2Over the last two weeks, have you... Had little interest or pleasure in doing things? Nearly every day Been feeling down, depressed, or hopeless? Nearly every day PHQ-2 Score: 6Anxiety Screening - DALIA-2Over the last two weeks, have you been... Feeling nervous, anxious, or on edge? More than half the days Unable to stop or control worrying? Nearly every day DALIA-2 Score: 5Food InsecurityWithin the past year...Did you worry whether your food would run out before you got money to buy more? NoWas there a time when the food you bought didn't last and you didn't have money to get more? NoGeneralized Anxiety Disorder 7-Item Screening (DALIA-7)Answer Guide:0 = Not at all1 = Several days2 = Over half the days3 = Nearly every dayOver the last 2 weeks, how often have you been bothered by the following problems?Feeling nervous, anxious, or on edge: 2Not being able to stop or control worryinWorrying too much about different things: 3Trouble relaxinBeing so restless that it's hard to sit still: 2Becoming easily annoyed or irritable: 3Feeling afraid as if something awful might happen: 2Answer Guide:0 = Not difficult at all1 = Somewhat difficult2 = Very difficult3 = Extremely difficultHow difficult have these made it for you to do your work, take care of things at home, or get along with other people? 2GAD-7 Screening Results DALIA-2 Score: 5GAD-7 Score: 18Functional Impairment: Very difficultRecommendation: Severe anxietyPHQ-9 1. Over the last 2 weeks, patient reports the following frequency of symptoms: a. Little interest or pleasure in doing things -Nearly every day b. Feeling down, depressed, or hopeless -Nearly every day c. Trouble falling asleep, staying asleep, or sleeping too much - Nearly every day d. Feeling tired or having little energy -Nearly every day e. Poor appetite or overeating -Nearly every day f. Feeling bad about yourself, feeling that you are a failure, or feeling that you have let yourself or your family down -Nearly every day g. Trouble concentrating on things such as reading the newspaper or watching television -Nearly every day h. Moving or speaking so slowly that other people could have noticed. Or being so fidgety or restless that you have been moving around a lot more than usual -Several days i. Thinking that you would be better off or that you want to hurt yourself in some way -Not at all2. If you checked off any problems, how difficult have these problems made it for you to do your work, take care of things at home, or get along with other people? -Very DifficultToday's PHQ-9 Results Score: 24 Severity: Severe Diagnosis Recommendation: Major Depression Functional Impairment: Very DifficultToday's Follow-Up Action Depression follow-up done. Follow-Up Action: Referred to Behavioral Health Registered Nurse Maternity to reestablish behavioral healthcareScreening, Brief Intervention, & Referral to Treatment (SBIRT)Pre-Screening Questions How many times have you have 4 or more drinks in a day? 0How many times have you used an illegal drug or used a prescription medication for a non-medical reason? 365Performed by: Meron Newton LPN, October 15, 2019 2:26 PMPatient History Medical History:AsthmaCervical CancerSurgical History:earsjawboneteeth removalcyst removal from mouthcollarboneFamily History:Heart disease (Mother)Cancer - Breast (Maternal Grandmother)Social/Personal History: Advised to Quit/Tobacco Education: YesChief Complaintfollow-up visit unable to do pap due Menstrual , pt does has concerns regarding meds RM 12History of Present Illness (HPI)34 YO female here for med refill Pt states smoking about 10-12 cigarettes daily. Pt states would like t o continue with Chantix. Pt states no major side effects with chantix. Pt states marijuana frequently without complications. Pt denies any other illicit drug use at this time. Pt denies alcoholism. HPI performed by: Carolynn ABBASI, October 15, 2019 3:06 PMProblem ReviewProblem List was reviewed and/or updated during this visit.Medication Reconciliation & ReviewMedication List was reviewed and/or updated during this visit, including review of any byde-oed-danfhue medications, herbal therapies, and/or supplements.Allergy ReviewAllergy List was reviewed and/or updated during this visit.Adult Preventive CareProvider Calculated and Reviewed all Clinical Protocols for patient today. Screening Tobacco Screening: Smoking Status: current some day smoker (10/15/2019) Tobacco Use: Currently (10/15/2019) Advised to Quit: Yes (10/15/2019)Labs/Meds/Other Counseling-Nutrition and Physical Activity:BMI Interpretation: Obese (10/15/2019) Counseling: Done (10/15/2019) Physical Activity: Done (10/15/2019)Cancer Screening Pap Smear/HPV TestingReviewed: Previous Comments: referral to health worker (03/20/2019)Today's Comments: pt was inially here for Pap But started Menses so unable to do , will rescheduleReview of Systems General: Denies loss of appetite, chills, dizziness, fatigue, fever, continued fever, headache, feeling ill, sweats, night sweats, sleep disturbances, weight loss. Eyes: Denies blurring of vision, double vision, irritation, discharge, vision loss, eye pain, eye swelling, droopy eyelid, sensitivity to light, redness, itching. Ears/Nose/Throat: Denies earache, ear discharge, ringing in ears, decreased hearing, nasal congestion, nosebleeds, runny nose, sore throat, hoarseness, difficulty swallowing, dry mouth, tooth pain, bleeding gums, swollen glands. Cardiovascular: Denies chest pain, pal pitations, feeling faint, trouble breathing w/exertion, SOB upon lying down, SOB at night, peripheral edema, elevated blood pressure, decreased heart rate. Respiratory: Denies cough, difficulty breathing, shortness of breath, excessive sputum, coughing up blood, wheezing, chest pain. Breast: Denies discoloration, tenderness, breast changes, breast lump, nipple discharge. Gastrointestinal: Denies nausea, vomiting, bleeding, burning, itching, irritation, cramps, diarrhea. Genitourinary: Denies urinary incontinence, pain with urination, burning with urination, urinary frequency, urinary hesitancy, urinary urgency, urinary urgency at night, incomplete emptying, blood in urine. Musculoskeletal: Denies back pain, joint pain, leg pain, other pain-see comments, joint swelling, body aches, muscle aches, muscle cramps, muscle weakness, stiffness, recent injury. Skin: Denies rash, hives, redness, itching, dryness, nail changes, suspicious lesions, athlete's foot, rash on palms, rash on bottom of fe et. Neurologic: Denies muscle impairment, weakness, numbness/tingling, seizures, slurred speech, feeling faint, tremors, vertigo, paralysis on one side, paralysis on both sides. Psychiatric: Complains of depression, anxiety. Denies memory loss, mental disturbance, suicidal ideation, homicidal ideation, hallucinations, paranoia, feeling stressed, hearing voices. Endocrine: Denies cold intolerance, heat intolerance, excessive thirst, excessive hunger, excessive urination, weight loss, weight gain. Physical ExamGeneral Appearance: well nourished, well hydrated, no acute distressEyes, External: conjunctivae and lids normal, EOMIRespiratory, Auscultation: clear to auscultation bilaterally; no rales, rhonchi, or wheezesRespiratory, Effort: no intercostal retractions or use of accessory musclesCardiovascular, Auscultation: S1, S2 audible; no murmur, rub, or gallop; RRRPeripheral Circulation: no clubbing, cyanosis, edema, or varicositiesAbdomen: soft, non-tender, no masses, bowel sounds normalGait & Station: normalSkin, Inspection: no rashes, lesions, or ulcerationsOrientation: oriented to time, place, and personMood & Affect: no depression, anxiety, or agitationJudgment & Insight: intactRate Your HealthIn general, would you say your health is? FairAssessment & Plan Problems:Added: Cannabis use, unspecified, uncomplicated (HMV79-U67.90) Assessment: Instructions: Please try to avoid the use of marijuana . this could interact with other prescribed medications. This is also still an illicit substance in the state [facility].Assessed:Nicotine dependence, unspecified, uncomplicated (DTH07-P77.200) Assessment: Instructions: We have refilled Chantix for you today. Please report any major side effects.Anxiety depression (ICD-300.4) (GGC94-W11.8) Assessment: Instructions: We have increased the dose of your Wellbutrin today. Please take medication as prescribed. Please report any major side effects. We [facility]. Your Appointment To Telepsych is scheduled for 11/23/2019, with Dr Tinoco. We will contact you to set up referral with .Health Screening (ICD-V70.0) (ICD10- Z13.9) Assessment: Instructions: Fasting labs ordered for you today.Patient Instructions/Care Plan: Cannabis use- unspecified- uncomplicated: Please try to avoid the use of marijuana . this could interact with other prescribed medications. This is also still an illicit substance in the state [facility].Nicotine dependence- unspecified- uncomplicated: We have refilled Chantix for you today. Please report any major side effects.Anxiety depression: We have increased the dose of your Wellbutrin today. Please take medication as prescribed. Please report any major side effects. We have made a referral [facility]. Your Appointment To Telepsych is scheduled for 11/23/2019, with Dr Tinoco. We will contact you to set up referral with .Health Screening: Fasting labs ordered for you today. Plan developed in collaboration with patient and/or familyMedications:MELOXICAM 7.5 MG ORAL TABLETALEVE 220 MG ORAL TABLETCHANTIX CONTINUING MONTH BRADLEY 1 MG ORAL TABLETWELLBUTRIN XL 300 MG ORAL TABLET EXTENDED RELEASE 24 HOURPROAIR HFA 108 (90 BASE) MCG/ACT INHALATION AEROSOL SOLUTIONMedication Changes:Refilled:WELLBUTRIN XL 300 MG ORAL TABLET EXTENDED RELEASE 24 HOUR-take one tablet by mouth daily Qty: 30[Tablet] Refills: 1 Method: ElectronicCHANTIX CONTINUING MONTH BRADLEY 1 MG ORAL TABLET-take medication as directed Qty: 1[Package] Refills: 1 Method: ElectronicMELOXICAM 7.5 MG ORAL TABLET-take one tablet by mouth daily Qty: 30[Tablet] Refills: 1 Method: ElectronicRemoved:ZITHROMAX 250 MG ORAL TABLET-take two tablet by mouth on day one then one tablet by mouth daily x 4 days Qty: 6[Tablet] Refills: 0Changed:Fr om: ORAL WELLBUTRIN XL 150 MG ORAL TABLET EXTENDED RELEASE 24 HOUR Qty: [id number] Refills: 30[Tablet] To: WELLBUTRIN XL 300 MG ORAL TABLET EXTENDED RELEASE 24 HOUR-take one tablet by mouth daily Qty: 30[Tablet] Refills: 1Allergies:* PENICILLIN (Critical)Orders:Mental Health Consult [CPT-94363] Telepsychiatry Consult [CPT-55866] COMP METABOLIC PANEL [CPT-30733] CBC W/DIFF [CPT-35431] HgBA1c [CPT-25021] LIPID PANEL [CPT-62555] Adult - Ofc Vst, EST, Level IV [CPT-80148] Follow-Up Return to clinic: as scheduled and as needed Clinical Visit Summary CompletedMedications:MELOXICAM 7.5 MG ORAL TABLET ( MELOXICAM) take one tablet by mouth daily #30[Tablet] x 1 Route:ORAL Entered and Authorized by: Carolynn ABBASI Method used: Electronically to [facility] (retail) [address] [place] [address] Fax: Note to Pharmacy: Route: ORAL; Indications: PAIN IN RIGHT HIP JOINT RxID: [id number] CONTINUING MONTH BRADLEY 1 MG ORAL TABLET (VARENICLINE TARTRATE) take medication as directed #1[Package] x 1 Route:ORAL Entered and Authorized by: Carolynn ABBASI Method used: Electronically to [facility] (retail) [address] [place] [address] Note to Pharmacy: Route: ORAL; Indications: NICOTINE DEPENDENCE, UNSPECIFIED, UNCOMPLICATED RxID: [id number] XL 300 MG ORAL TABLET EXTENDED RELEASE 24 HOUR (BUPROPION HCL) take one tablet by mouth daily #30[Tablet] x 1 Route:ORAL Entered and Authorized by: Carolynn ABBASI Method used: Electronically to [facility] (retail) [address] [place] [address] Fax: Note to Pharmacy: Route: ORAL; Indications: ANXIETY DEPRESSION RxID: [id number] ZITHROMAX 250 MG ORAL TABLET (AZITHROMYCIN) take two tablet by mouth on day one then one tablet by mouth daily x 4 days #6[Tablet] x 0 Route:ORAL Entered by: Meron Newton LPN Authorized by: Carolynn ABBASI Method used: Electronically to [facility] (retail) [address] [place] [address] RxID: [id number] signed by Carolynn ABBASI on 10/23/2019 at 2:45 PM Name Value Range Interpretation Code Description Data Shereen rce(s) Supporting Document(s) ID Date Data Source [id number] 08/12/2019 12:00:00 AM EST [facility] Sergio Casarez MD Patient Name: [facility] Date of : [facility] Date of Exam: 08/12/2019ALISTAIR Lazaro [id number]#: Fax: [phone] EXAM: MRI HIP RIGHT WITHOUT CONTRASTPROCEDURE INFORMATION:Exam: MR Right Lower Extremity Joint Without Contrast; HipExam date and time: 08/12/2019 1:41 PM Age: 34 years old Clinical indication:Pain; Hip; RightTECHNIQUE: Imaging protocol: MR of the Right lower extremity joint withoutintravenous contrast. Exam focused on the hip.COMPARISON: No relevant prior studies available.FINDINGS:Bones and cartilage: Bone marrow signal intensity of the visualized osseousstructures is unremarkable. No acute fracture, avascular necrosis ordislocation is seen.Joint spaces: The right hip joint space is well maintained and nosignificant degenerative arthritic changes or erosions or joint effusion isseen.Labrum: Unremarkable. No tear.TENDONS: Tendons of iliopsoas group: Unremarkable. No evidence of tear.Tendons of medial compartment of thigh: Unremarkable. No evidence of tear.Tendons of lateral rotators of hip: Unremarkable. No evidence of tear.Tendons of gluteal group: There is moderate tendinosis of the distalgluteus medius tendon close to its insertion on the greater trochanter.Muscles: Unremarkable.Soft tissues: Unremarkable.IMPRESSION:1. Bone marrow signal intensity of the visualized osseous structures isunremarkable. No acute fracture, avascular necrosis or dislocation is seen.2. The right hip joint space is well maintained and no significantdegenerative arthritic changes or erosions or joint effusion is seen.3. There is moderate tendinosis of the distal gluteus medius tendon closeto its insertion on the greater trochanter.Thank you for allowing us to participate in the care of your patient.Dictated and Authenticated by: Ubaldo Piña MD 08/13/2019 3:21 PMEastern Time ([place] & [place])CindyV/Carin you for referring KAYLIE RODRIGUEZ to our office.Electronically Signed - CINDY 08/13/19 15:49 Name Value Range Interpretation Code Description Data Shereen rce(s) Supporting Document(s) ID Date Data Source [id number] 07/07/2019 11:29:26 AM EST [facility] Labs In-House Blood TestsDate/Time Colle cted: July 07, 2019 11:31 AMTest Result Reference Range Normal ValueComments: blood draw done in office done in the right ac tolerated well Christian Sen SAMIRA, July 07, 2019 11:31 AMAssessment & Plan Orders:[id number] Vst-Est Level I [CPT-90347] 33100 - Venipuncture [CPT-24460] Name Value Range Interpretation Code Description Data Shereen rce(s) Supporting Document(s) ID Date Data Source [id number] 07/07/2019 11:20:00 AM EST [facility] Name Value Range Interpretation Code Description Data Shereen rce(s) Supporting Document(s) HCT 40.5 % 36.0-47.0 N [facility] HGB 13.7 g/dL 12.0-15.5 N [facility] MCH 33.8 G/DL pg 32.0-36.5 N [facility] MCHC 29.3 PG % 27.0-33.0 [facility] PLATELETS 310 10 10*3/mm3 150-450 N [facility] RBC 4.68 10 10*6/mm3 4.00-5.40 N [facility] RDW 11.9 % 11.5-14.5 [facility] WBC TOTAL 7.0 4.0-10.0 N [facility] ID Date Data Source [id number] 07/07/2019 11:20:00 AM EST [facility] Name Value Range Interpretation Code Description Data Shereen rce(s) Supporting Document(s) VIT D25 TOT 23.4 ng/mL 30.0-100.0 L [facility] BG FASTING 103 mg/dL 70-100 H [facility] ID Date Data Source [id number] 07/07/2019 11:20:00 AM [facility] Name Value Range Interpretation Code Description Data Shereen rce(s) Supporting Document(s) HGBA1C 5.5 % N [facility] ID Date Data Source [id number] 06/30/2019 05:21:36 PM [facility] Measurements & CalculationsHeight: 67 inches (5 ft. 7 in.) 170.18 cm Weight: 202 pounds 91.82 kg Body Mass Index (BMI): 31.75BMI Interpretation: ObeseBody Surface Area (BSA): 2.03Weight Management Education Done (Nutrition/Physical Activity)Vital SignsTemperature: 97.8FPulse Rate: 81 beats/minuteRespiratory Rate: 17 respirations/minuteBlood Pressure: 115/77 O2 Saturation: 98% Vital Signs performed by: Kristina Alfaro MA, June 30, 2019 5:31 PMInitial Intake Information from: patientRoom #: 13Infectious Disease- Travel Have you or your sexual partner travelled outside of the country recently? NoSmoking, Tobacco or Smoke Exposure StatusSmoke Status: current some day smokerTobacco Use: YesAdv to Quit: YesPassive Smoke Exposure: YesMenstrual HistoryLast Menstrual Period (LMP): 06/27/2019Any possibility of ? NoHealthcare HistorySince your last office visit...Have you been admitted to the hospital? N oHave you been to an emergency room (ER) or urgent care clinic? NoHave you seen another healthcare provider? NoHave you seen a dentist? NoIntake performed by: Kristina Alfaro MA, June 30, 2019 5:26 PMRate Your HealthIn general, would you say your health is? PoorPain AssessmentAre you currently having any pain which... You would like your provider to address? Yes Affects your activity level? YesInfectious Disease- Travel Cont. Any possibility of ? NoPain AssessmentPain ScaleNumeric Rating Scale: 9 / 10Location: hipDuration: monthsFrequency: DailyCharacter/Quality: sharpIs the pain radiating? YesScreening, Brief Intervention, & Referral to Treatment (SBIRT)Pre- Screening Questions How many times have you have 4 or more drinks in a day? 0How many times have you used an illegal drug or used a prescription medication for a non-medical reason? 0Performed by: Kristina Alfaro MA, June 30, 2019 5:25 PMPatient History Medical History:AsthmaCervical CancerSurgical History:earsja wboneteeth removalcyst removal from mouthcollarboneFamily History:Heart disease (Mother)Cancer - Breast (Maternal Grandmother)Social/Personal History: Smoking Status: current some day smokerAdvised to Quit/Tobacco Education: YesChief ComplaintsickHistory of Present Illness (HPI)34 yo female patient here today due to being sick.Pt states she has been having runny nose, sinus congession, coughing and sneezing,. Pt denies fevers. Pt denies nausea, pt denies vomiting. Pt denies diarrhea. Pt statees symptoms started two weeks ago. Pt states she has missed work due to being sick. Pt states , have tried OTC nyquil and Dayquil. Pt states feeling a little better today but still sinus congession and cough. Pt states her leg socket/hip area hurts while walking or stretching.Pt states she had a falll back in April 2019. Pt states she still has tingling and numbness in her feet.Pt denies any other concerns at this time. HPI performed by: Carolynn ABBASI, June 30, 2019 5:57 PMProblem ReviewPro blem List was reviewed and/or updated during this visit.Medication Reconciliation & ReviewMedication List was reviewed and/or updated during this visit, including review of any edxd-ekn-oakdbmn medications, herbal therapies, and/or supplements.Allergy ReviewAllergy List was reviewed and/or updated during this visit.Adult Preventive CareProvider Calculated and Reviewed all Clinical Protocols for patient today. Screening Tobacco Screening: Smoking Status: current some day smoker (06/30/2019) Advised to Quit: Yes (06/30/2019)Labs/Meds/Other Counseling-Nutrition and Physical Activity:BMI Interpretation: Obese (06/30/2019) Counseling: Done (06/30/2019) Physical Activity: Done (06/30/2019)Cancer Screening Pap Smear/HPV TestingReviewed: Previous Comments: referral to health worker (03/20/2019)Review of Systems General: Denies loss of appetite, chills, dizziness, fatigue, fever, continued fever, headache, feeling ill, sweats, night sweats, sleep disturbances, weight loss. Eyes: Denies blurring of vision, double vision, irritation, discharge, vision loss, eye pain, eye swelling, droopy eyelid, sensitivity to light, redness, itching. Ears/Nose/Throat: Complains of nasal congestion, runny nose, sore throat. Denies earache, ear discharge, ringing in ears, decreased hearing, nosebleeds, hoarseness, difficulty swallowing, dry mouth, tooth pain, bleeding gums, swollen glands. Cardiovascular: Denies chest pain, palpitations, feeling faint, trouble breathing w/exertion, SOB upon lying down, SOB at night, peripheral edema, elevated blood pressure, decreased heart rate. Respiratory: Complains of cough. Gastrointestinal: Denies nausea, vomiting, bleeding, burning, itching, irritation, cramps, diarrhea. Genitourinary: Denies urinary incontinence, pain with urination, burning with urination, urinary frequency, urinary hesitancy, urinary urgency, urinary urgency at night, incomplete emptying, blood in urine. Musculoskeletal: Complains of joint pain, leg pain. Denies back pain, joint swelling, body aches, muscle aches, muscle cramps, muscle weakness, stiffness, recent injury. Neurologic: Denies muscle impairment, weakness, numbness/tingling, seizures, slurred speech, feeling faint, tremors, vertigo, paralysis on one side, paralysis on both sides. Psychiatric: Denies depression, anxiety, memory loss, mental disturbance, suicidal ideation, homicidal ideation, hallucinations, paranoia, feeling stressed, hearing voices. Physical ExamGeneral Appearance: well nourished, well hydrated, no acute distressEyes, External: conjunctivae and lids normal, EOMIRespiratory, Auscultation: clear to auscultation bilaterally; no rales, rhonchi, or wheezesRespiratory, Effort: no intercostal retractions or use of accessory musclesCardiovascular, Auscultation: S1, S2 audible; no murmur, rub, or gallop; RRRPeripheral Circulation: no clubbing, cyanosis, edema, or varicositiesAbdomen: soft, non-tender, no masses, bowel sounds normalGait & Station: normalSkin, Inspection: no rashes, lesions, or ulcerationsOrientation: oriented to time, place, and personMood & Affect: no depression, anxiety, or agitationJudgment & Insight: intactRate Your HealthIn general, would you say your health is? PoorAssessment & Plan Problems:Added: Pain in right hip joint (CYL66-E57.551) Assessment: Instructions: We have made a referral for you today. We will contact you to set this up.May continue heat or cold therapy as needed. We have sent a prescription for meloxicam. Please take this medication as prescribed. Please report any major side effects.Dyspnea on exertion (ICD-786.09) (LFW12-K61.09) Assessment: pt staes still intermittent SOB on exertion. pt states albuterol not working enough.requesting change. Instructions: We have changed albuterol to Proair . Please use as prescribed. Please report any major side effects.Assessed:upper respiratory infection (ICD-465.9) (JGW70-J92.9) Assessment: Instructions: We have sent a prescription to your pharmacy today. Please take medication as prescribed. Please report any major side effects. Please try to maintain good nutrition and adequate hydration.Nicotine dependence, unspecified, uncomplicated (QPZ28-E90.200) Assessment: Pt states down to 1-2 cigarettes daily. Instructions: Please continue to try to quit smoking.Patient Instructions/Care Plan: upper respiratory infection: We have sent a prescription to your pharmacy today. Please take medication as prescribed. Please report any major side effects. Please try to maintain good nutrition and adequate hydration.Nicotine dependence- unspecified- uncomplicated: Please continue to try to quit smoking .Pain in right hip joint: We have made a referral for you today. We will contact you to set this up.May continue heat or cold therapy as needed. We have sent a prescription for meloxicam. Please take this medication as prescribed. Please report any major side effects.Dyspnea on exertion: We have changed albuterol to Proair . Please use as prescribed. Please report any major side effects. Plan developed in collaboration with patient and/or familyMedications:MELOXICAM 7.5 MG ORAL TABLETZITHROMAX 250 MG ORAL TABLETALEVE 220 MG ORAL TABLETCHANTIX CONTINUING MONTH BRADLEY 1 MG ORAL TABLETWELLBUTRIN XL 150 MG ORAL TABLET EXTENDED RELEASE 24 HOURPROAIR DIGIHALER 108 MCG/ACT INHALATION AEROSOL POWDER BREATH ACTIVATEDMedication Changes:Added: ALEVE 220 MG ORAL TABLET-bidRefilled:WELLBUTRIN XL 150 MG ORAL TABLET EXTENDED RELEASE 24 HOUR- take one tablet by mouth daily Qty: 30[Tablet] Refills: 1 Method: ElectronicCHANTIX CONTINUING MONTH BRADLEY 1 MG ORAL TABLET-take medication as directed Qty: 1[Tablet] Refills: 1 Method: ElectronicPROAIR DIGIHALER 108 MCG/ACT INHALATION AEROSOL POWDER BREATH ACTIVATED-one inhalation by mouth 3-4 times daily as needed Qty: 1[Inhaler] Refills: 2 Method: ElectronicNew Prescription:ZITHROMAX 250 MG ORAL TABLET-take two tablet by mouth on day one then one tablet by mouth daily x 4 days Qty: 6[Tablet] Refills: 0 Method: ElectronicMELOXICAM 7.5 MG ORAL TABLET-take one tablet by mouth daily Qty: 30[Tablet] Refills: 1 Method: ElectronicChanged:From: INHALATION ALBUTEROL SULFATE HFA 108 (90 BASE) MCG/ACT INHALATION AEROSOL SOLUTION Qty: [id number] Refills: 1[Inhaler] To: PROAIR DIGIHALER 108 MCG/ACT INHALATION AEROSOL POWDER BREATH ACTIVATED-one inhalation by mouth 3-4 times daily as needed Qty: 1[Inhaler] Refills: 2Allergies:* PENICILLIN (Critical) Orders:Orthopaedics Consult [CPT-51890] Adult - Ofc Vst, EST, Level IV [CPT- 32006] Follow-Up Return to clinic: as scheduled and as needed Clinical Visit Summary CompletedMedications:PROAIR DIGIHALER 108 MCG/ACT INHALATION AEROSOL POWDER BREATH ACTIVATED (ALBUTEROL SULFATE) one inhalation by mouth 3-4 times daily as needed #1[Inhaler] x 2 Route:INHALATION Entered and Authorized by: Carolynn ABBASI Method used: Electronically to [facility] ([email or web address]) [address] [place] [address] Note to Pharmacy: Route: INHALATION; Indications: DYSPNEA ON EXERTION RxID: [id number] 7.5 MG ORAL TABLET (MELOXICAM) take one tablet by mouth daily #30[Tablet] x 1 Route:ORAL Entered and Authorized by: Carolynn ABBASI Method used: Electronically to [facility]* (retail) [address] [place] [address] Note to Pharmacy: Route: ORAL; Indications: PAIN IN RIGHT HIP JOINT RxID: [id number] CONTINUING MONTH BRADLEY 1 MG ORAL TABLET (VARENICLINE TARTRATE) take medication as directed #1[Tablet] x 1 Route:ORAL Entered and Authorized by: Carolynn ABBASI Method used: Electronically to [facility] (retail) [address] [place] [address] Fax: Note to Pharmacy: Route: ORAL; Indications: NICOTINE DEPENDENCE, UNSPECIFIED, UNCOMPLICATED RxID: [id number] XL 150 MG ORAL TABLET EXTENDED RELEASE 24 HOUR (BUPROPION HCL) take one tablet by mouth daily #30[Tablet] x 1 Route:ORAL Entered and Authorized by: Carolynn ABBASI Method used: Electronically to [facility] (retail) [address] [place] [address] Ph: [phone] Note to Pharmacy: Route: ORAL; Indications: ANXIETY DEPRESSION RxID: [id number] 250 MG ORAL TABLET (AZITHROMYCIN) take two tablet by mouth on day one then one tablet by mouth daily x 4 days #6[Tablet] x 0 Route:ORAL Entered and Authorized by: Carolynn ABBASI Method used: Electronically to [facility] (khlngo) [address] [place] [address] Note to Pharmacy: Route: ORAL; Indications: UPPER RESPIRATORY INFECTION RxID: [id number] signed by Carolynn ABBASI on 07/01/2019 at 5:21 AM Name Value Range Interpretation Code Description Data Shereen rce(s) Supporting Document(s) ID Date Data Source [id number] 05/18/2019 05:06:52 PM [facility] Measurements & CalculationsHeight: 67 inches (5 ft. 7 in.) 170.18 cm Weight: 200 pounds 90.91 kg Body Mass Index (BMI): 31.44BMI Interpretation: ObeseBody Surface Area (BSA): 2.02Weight Management Education Done (Nutrition/Physical Activity)Vital SignsTemperature: 97.9FPulse Rate: 74 beats/minuteRespiratory Rate: 18 respirations/minuteBlood Pressure: 116/85 Vital Signs performed by: Bria Haley MA, May 18, 2019 5:12 PMInitial Intake Information from: patientRoom #: 11Infectious Disease- Travel Have you or your sexual partner travelled outside of the country recently? NoSmoking, Tobacco or Smoke Exposure StatusSmoke Status: current every day smokerTobacco Use: YesAdv to Quit: YesPassive Smoke Exposure: YesMenstrual HistoryLast Menstrual Period (LMP): 05/08/2019Any possibility of ? NoHealthcare HistorySince your last office visit...Have you been admitted to the hospital? NoHave you been to an emergency room (ER) or urgent care clinic? No - [facility]- BronchitisHave you seen another healthcare provider? NoHave you seen a dentist? NoIntake performed by: Bria Haley MA, May 18, 2019 5:08 PMRate Your HealthIn general, would you say your health is? PoorPain AssessmentAre you currently having any pain which... You would like your provider to address? No Affects your activity level? NoDepression Screening - PHQ-2Over the last two weeks, have you... Had little interest or pleasure in doing things? Nearly every day Been feeling down, depressed, or hopeless? Nearly every day PHQ-2 Score: 6Anxiety Screening - DALIA-2Over the last two weeks, have you been... Feeling nervous, anxious, or on edge? Nearly every day DALIA-2 Score: 6Infectious Disease- Travel Cont. Any possibility of ? NoGeneralized Anxiety Disorder 7-Item Screening (DALIA-7)Answer Guide:0 = Not at all1 = Several days2 = Over half the days3 = Nearly every dayOver the last 2 weeks, how often have you been bothered by the following problems?Feeling nervous, anxious, or on edge: 3Not being able to stop or control worryinWorrying too much about different things: 3Trouble relaxinBeing so restless that it's hard to sit still: 3Becoming easily annoyed or irritable: 3Feeling afraid as if something awful might happen: 3Answer Guide:0 = Not difficult at all1 = Somewhat difficult2 = Very difficult3 = Extremely difficultHow difficult have these made it for you to do your work, take care of things at home, or get along with other people? 3GAD-7 Screening Results DALIA-2 Score: 6GAD-7 Score: 21Functional Impairment: Extremely difficultRecommendation: Severe anxietyPHQ-9 1. Over the last 2 weeks, patient reports the following frequency of symptoms: a. Little interest or pleasure in doing things -Nearly every day b. Feeling down, depressed, or hopeless -Nearly every day c. Trouble falling asleep, staying asleep, or sleeping too much -More than half the days d. Feeling tired or having little energy -Nearly every day e. Poor appetite or overeating -Nearly every day f. Feeling bad about yourself, feeling that you are a failure, or feeling that you have let yourself or your family down -Nearly every day g. Trouble concentrating on things such as reading the newspaper or watching television -Nearly every day h. Moving or speaking so slowly that other people could have noticed. Or being so fidgety or restless that you have been moving around a lot more than usual - More than half the days i. Thinking that you would be better off or that you want to hurt yourself in some way -Not at all2. If you checked off any problems, how difficult have these problems made it for you to do your work, take care of things at home, or get along with other people? -Very DifficultToday's PHQ-9 Results Score: 22 Severity: Severe Diagnosis Recommendation: Major Depression Functional Impairment: Very DifficultDepression Screening Follow- Up ActionToday's Follow-Up Action Depression follow-up done. Follow-Up Action: on waiting list for therapy Screening, Brief Intervention, & Referral to Treatment (SBIRT)Pre-Screening Questions How many times have you have 4 or more drinks in a day? 0How many times have you used an illegal drug or used a prescription medication for a non-medical reason? 0Performed by: Bria Haley MA, May 18, 2019 5:10 PMPatient History Medical History:AsthmaCervical CancerSurgical History:earsjawboneteeth removalcyst removal from mouthcollarboneFamily History:Heart disease (Mother)Cancer - Breast (Maternal Grandmother)Social/Personal History: Smoking Status: current every day smokerAdvised to Quit/Tobacco Education: YesChief Complaintanx/depHistory of Present Illness (HPI)34 yo female patient in today for follow up on anx and dep.Pt states not feeling as if [employer] is working. Pt states having more anger and mood swings. Pt also reports tingaling in dave hand and feet. Pt states symptoms sstarted about two weeks ago. Pt states not ssure if it relates to her cutting back on cigarette smoking. Pt states still trying to quit smoking. Pt states down to 2-3 cigarettes daily. Pt denies recent use of any illicit substances. Pt denies any recent alcoholism. HPI performed by: Carolynn ABBASI, May 18, 2019 5:35 PMProblem ReviewProblem List was reviewed and/or updated during this visit.Medication Reconciliation & ReviewMedication List was reviewed and/or updated during this visit, including review of any emor-sdl-vdezwnh medications, herbal therapies, and/or supplements.Allergy ReviewAllergy List was reviewed and/or updated during this visit.Adult Preventive CareProvider Calculated and Reviewed all Clinical Protocols for patient today. Screening Tobacco Screening: Smoking Status: current every day smoker (05/18/2019) Advised to Quit: Yes (05/18/2019)Labs/Meds/Other Counseling-Nutrition and Physical Activity:BMI Interpretation: Obese (05/18/2019) Counseling: Done (05/18/2019) Physical Activity: Done (05/18/2019)Cancer Screening Pap Smear/HPV TestingReviewed: Previous Comments: referral to health worker (03/20/2019)Review of Systems General: Denies loss of appetite, chills, dizziness, fatigue, fever, continued fever, headache, feeling ill, sweats, night sweats, sleep disturbances, weight loss. Eyes: Denies blurring of vision, double vision, irritation, discharge, vision loss, eye pain, eye swelling, droopy eyelid, sensitivity to light, redness, itching. Ea rs/Nose/Throat: Denies earache, ear discharge, ringing in ears, decreased hearing, nasal congestion, nosebleeds, runny nose, sore throat, hoarseness, difficulty swallowing, dry mouth, tooth pain, bleeding gums, swollen glands. Cardiovascular: Denies chest pain, palpitations, feeling faint, trouble breathing w/exertion, SOB upon lying down, SOB at night, peripheral edema, elevated blood pressure, decreased heart rate. Respiratory: Denies cough, difficulty breathing, shortness of breath, excessive sputum, coughing up blood, wheezing, chest pain. Breast: Denies discoloration, tenderness, breast changes, breast lump, nipple discharge. Gastrointestinal: Denies nausea, vomiting, bleeding, burning, itching, irritation, cramps, diarrhea, constipation. Genitourinary: Denies urinary incontinence, pain with urination, burning with urination, urinary frequency, urinary hesitancy, urinary urgency, urinary urgency at night, incomplete emptying, blood in urine, pelvic pain. Musculoskeletal: Denies back pain, joint pain, leg pain, joint swelling, body aches, muscle aches, muscle cramps, muscle weakness, stiffness, recent injury. Skin: Denies rash, hives, redness, itching, dryness, nail changes, suspicious lesions, athlete's foot, rash on palms, rash on bottom of feet. Neurologic: Complains of numbness/tingling. Denies muscle impairment, weakness, seizures, slurred speech, feeling faint, tremors, vertigo, paralysis on one side, paralysis on both sides. bilat armsPsychiatric: Complains of depression, anxiety, feeling stressed. Denies memory loss, mental disturbance, suicidal ideation, homicidal ideation, hallucinations, paranoia, hearing voices. Endocrine: Denies cold intolerance, heat intolerance, excessive thirst, excessive hunger, excessive urination, weight loss, weight gain. Physical ExamGeneral Appearance: well nourished, well hydrated, no acute distressEyes, External: conjunctivae and lids normal, EOMIRespiratory, Auscultation: clear to auscultation bilaterally; no rales, rhonchi, or wheezesRespiratory, Effort: no intercostal retractions or use of accessory musclesCardiovascular, Auscultation: S1, S2 audible; no murmur, rub, or gallop; RRRPeripheral Circulation: no clubbing, cyanosis, edema, or varicositiesAbdomen: soft, non-tender, no masses, bowel sounds normalGait & Station: normalSkin, Inspection: no rashes, lesions, or ulcerationsOrientation: oriented to time, place, and personMood & Affect: no depression, anxiety, or agitationJudgment & Insight: seems intactRate Your HealthIn general, would you say your health is? PoorAssessment & Plan Problems:Added: Paresthesia of lower extremity (ICD-782.0) (ZVL71-U60.2) Assessment: Instructions: We have ordered labs for you today. Please try to maintain adequate fluid intake to include 6-8 glasses of water daily. Please try to maintain adequate rest.Paresthesia of upper limb (ICD-782.0) (RXP62-G36.2) Assessment: Instructions: We have ordered labs for you today. Please try to maintain adequate fluid intake to include 6-8 glasses of water daily. Please try to maintain adequate rest.Assessed:Prediabetes (BNO51-Y31.03) Assessment: Instructions: Please continue lifestyle changes to include healthy diet and physical activities. Please try to limit sugars and carbohydrates in your diet. Please try to maintain adequate fluid intake to include 6-8 glasses of water daily.Health Screening (ICD-V70.0) (FIT97-A84.9) Assessment: Instructions: We have ordered labs for you today. We will contact you with abnormal results.Anxiety depression (ICD-300.4) (DOI17-C56.8) Assessment: Instructions: Please stop taking Prozac and start taking Wellbutrin. Please take medication as prescribed. Please report any major side effects.Nicotine dependence, unspecified, uncomplicated (COG76-F35.200) Assessment: Instructions: Please continue your progress to smoking cessation. Please let us know if you need additional assistance.Health Screening (ICD-V70.0) (ICD10- Z13.9) Assessment: Instructions: We have ordered labs for you today. Please fasat for 8-10 hours prior. We will contact you with abnormal results.Assessment not Saved Paresthesia of lower extremity (GCN03-H52.2): Patient Instructions/Care Plan: Prediabetes: Please continue lifestyle changes to include healthy diet and physical activities. Please try to limit sugars and carbohydrates in your diet. Please try to maintain adequate fluid intake to include 6-8 glasses of water daily.Health Screening: We have ordered labs for you today. We will contact you with abnormal results.Anxiety depression: Please stop taking Prozac and start taking Wellbutrin. Please take medication as prescribed. Please report any major side effects.Nicotine dependence- unspecified- uncomplicated: Please continue your progress to smoking cessation. Please let us know if you need additional assistance.Paresthesia of lower extremity: We have ordered labs for you today. Please try to maintain adequate fluid intake to include 6-8 glasses of water daily. Please try to maintain adequate rest.Paresthesia of upper limb: We have ordered labs for you today. Please try to maintain adequate fluid intake to include 6-8 glasses of water daily. Please try to maintain adequate rest.Health Screening: We have ordered labs for you today. Please fasat for 8-10 hours prior. We will contact you with abnormal results. Plan developed in collaboration with patient and/or familyMedications:CHANTIX CONTINUING MONTH BRADLEY 1 MG ORAL TABLETWELLBUTRIN XL 150 MG ORAL TABLET EXTENDED RELEASE 24 HOURALBUTEROL SULFATE HFA 108 (90 BASE) MCG/ACT INHALATION AEROSOL SOLUTIONMedication Changes:Refilled:WELLBUTRIN SR 150 MG ORAL TABLET EXTENDED RELEASE 12 HOUR-take one tablet by mouth daily Qty: 30[Tablet] Refills: 1 Method: ElectronicWELLBUTRIN XL 150 MG ORAL TABLET EXTENDED RELEASE 24 HOUR-take one tablet by mouth daily Qty: 30[Tablet] Refills: 1 Method: ElectronicRemoved:CHANTIX STARTING MONTH BRADLEY 0.5 MG X 11 & 1 MG X 42 ORAL TABLET-please take as directed., PREDNISONE 10 MG ORAL TABLET-take three tablets by mouth daily x 5 days, AZITHROMYCIN 250 MG ORAL TABLET-take two tablets by mouth on day one, then one tablet by mouth daily x 4 days., MUCINEX 600 MG ORAL TABLET EXTENDED RELEASE 12 HOUR-take one tablet by mouth twice daily x 7 days.Changed:From: ORAL PROZAC 10 MG ORAL CAPSULE Qty: [id number] Refills: 30[Tablet] To: WELLBUTRIN SR 150 MG ORAL TABLET EXTENDED RELEASE 12 HOUR-take one tablet by mouth daily Qty: 30[Tablet] Refills: 1From: ORAL WELLBUTRIN SR 150 MG ORAL TABLET EXTENDED RELEASE 12 HOUR Qty: [id number] Refills: 30[Tablet] To: WELLBUTRIN XL 150 MG ORAL TABLET EXTENDED RELEASE 24 HOUR-take one tablet by mouth daily Qty: 30[Tablet] Refills: 1Allergies:* PENICILLIN (Critical)Orders:COMP METABOLIC PANEL [CPT-68665] CBC W/DIFF [CPT- 35841] HgBA1c [CPT-65885] LIPID PANEL [CPT-71761] Vitamin D 250H Unspecified [CPT-86664] VITAMIN B-12 [CPT-52292] Folate (Folic Acid Serum) [CPT-60455] Adult - Ofc Vst, EST, Level IV [CPT-41478] Follow-Up Return to clinic: 4-6 weeks for assistance Clinical Visit Summary CompletedMedications:WELLBUTRIN XL 150 MG ORAL TABLET EXTENDED RELEASE 24 HOUR (BUPROPION HCL) take one tablet by mouth daily #30[Tablet] x 1 Route:ORAL Entered and Authorized by: Carolynn ABBASI Method used: Electronically to [facility] (retail) [address] [place] [address] Ph: Note to Pharmacy: Route: ORAL; Indications: ANXIETY DEPRESSION RxID: [id number] SR 150 MG ORAL TABLET EXTENDED RELEASE 12 HOUR (BUPROPION HCL) take one tablet by mouth daily #30[Tablet] x 1 Route:ORAL Entered and Authorized by: Carolynn ABBASI Method used: Electronically to [facility]* ([id number]) [address] [place] [address] Note to Pharmacy: Route: ORAL; Indications: ANXIETY DEPRESSION RxID: [id number] si gned by Carolynn ABBASI on 05/20/2019 at 12:38 AM Name Value Range Interpretation Code Description Data Shereen rce(s) Supporting Document(s) Procedure Vital Signs ID Date Data Source UNK Name Value Range Interpretation Code Description Data Source(s) Body height 67 [in_i] 67 [in_i] PIERCE ([facility]) Body weight 3139.2 [oz_av] 3139.2 [oz_av] ATH A ([facility]) Body mass index (BMI) [Ratio] 30.7 kg/m2 30.7 k g/m2 PIERCE ([facility]) Body height 67 [in_i] 67 [in_i] PIERCE ([facility]) Body weight 3139.2 [oz_av] 3139.2 [oz_av] ATH A ([facility]) Body mass index (BMI) [Ratio] 30.7 kg/m2 30.7 k g/m2 PIERCE ([facility]) Body height 67 [in_i] 67 [in_i] PIERCE ([facility]) Systolic blood pressure 112 mm[Hg] 112 [facility]Hg] [facility] Body mass index (BMI) [Ratio] 31.2 kg/m2 31.2 k g/m2 PIERCE ([facility]) Body height 67 [in_i] 67 [in_i] PIERCE ([facility]) Diastolic blood pressure 70 mm[Hg] 70 mm[Hg] PIERCE ([facility]) Body weight 3187.2 [oz_av] 3187.2 [oz_av] ATHEN A ([facility]) Systolic blood pressure 112 mm[Hg] 112 mm[Hg] A THENA ([facility]) Body mass index (BMI) [Ratio] 31.2 kg/m2 31.2 k g/m2 PIERCE ([facility]) Body height 67 [in_i] 67 [in_i] PIERCE ([facility]) Diastolic blood pressure 70 mm[Hg] 70 mm[Hg] PIERCE ([facility]) Body weight 3187.2 [oz_av] 3187.2 [oz_av] ATHEN A ([facility]) Systolic blood pressure 112 mm[Hg] 112 mm[Hg] A THENA ([facility]) Body mass index (BMI) [Ratio] 31.2 kg/m2 31.2 k g/m2 PIERCE ([facility]) Body height 67 [in_i] 67 [in_i] PIERCE ([facility]) Diastolic blood pressure 70 mm[Hg] 70 mm[Hg] PIERCE ([facility]) Body weight 3187.2 [oz_av] 3187.2 [oz_av] ATHEN A ([facility]) Systolic blood pressure 112 mm[Hg] 112 mm[Hg] A THENA ([facility]) Body mass index (BMI) [Ratio] 31.2 kg/m2 31.2 k g/m2 PIERCE ([facility]) Body height 67 [in_i] 67 [in_i] PIERCE ([facility]) Diastolic blood pressure 70 mm[Hg] 70 mm[Hg] PIERCE ([facility]) Body weight 3187.2 [oz_av] 3187.2 [oz_av] ATHEN A ([facility]) Body weight 3218.08 [oz_av] 3218.08 [oz_av] ATH ZANDRA ([facility]) Body height 67 [in_i] 67 [in_i] PIERCE ([facility]) Body weight 3218.08 [oz_av] 3218.08 [oz_av] ATH ZANDRA ([facility]) Body height 67 [in_i] 67 [in_i] PIERCE ([facility]) Body weight 3218.08 [oz_av] 3218.08 [oz_av] ATH ZANDRA ([facility]) Body height 67 [in_i] 67 [in_i] PIERCE ([facility]) Body weight 3218.08 [oz_av] 3218.08 [oz_av] ATH ZANDRA ([facility]) Body height 67 [in_i] 67 [in_i] PIERCE ([facility]) Body weight 3170.08 [oz_av] 3170.08 [oz_av] ATH ZANDRA ([facility]) Body height 67 [in_i] 67 [in_i] PIERCE ([facility]) Body weight 3170.08 [oz_av] 3170.08 [oz_av] ATH ZANDRA ([facility]) Body height 67 [in_i] 67 [in_i] PIERCE ([facility]) Body weight 3170.08 [oz_av] 3170.08 [oz_av] ATH ZANDRA ([facility]) Body height 67 [in_i] 67 [in_i] PIERCE ([facility]) Body weight 3170.08 [oz_av] 3170.08 [oz_av] ATH ZANDRA ([facility]) Body height 67 [in_i] 67 [in_i] PIERCE ([facility]) Body weight 3155.04 [oz_av] 3155.04 [oz_av] ATH ZANDRA ([facility]) Systolic blood pressure 118 mm[Hg] 118 mm[Hg] A THENA ([facility]) Body height 67 [in_i] 67 [in_i] PIERCE ([facility]) Diastolic blood pressure 76 mm[Hg] 76 mm[Hg] PIERCE ([facility]) Body weight 3155.04 [oz_av] 3155.04 [oz_av] ATH ZANDRA ([facility]) Systolic blood pressure 118 mm[Hg] 118 mm[Hg] A THENA ([facility]) Body height 67 [in_i] 67 [in_i] PIERCE ([facility]) Diastolic blood pressure 76 mm[Hg] 76 mm[Hg] PIERCE ([facility]) Body weight 3155.04 [oz_av] 3155.04 [oz_av] ATH ZANDRA ([facility]) Systolic blood pressure 118 mm[Hg] 118 mm[Hg] A THENA ([facility]) Body height 67 [in_i] 67 [in_i] PIERCE ([facility]) Diastolic blood pressure 76 mm[Hg] 76 mm[Hg] PIERCE ([facility]) Body weight 3155.04 [oz_av] 3155.04 [oz_av] ATH ZANDRA ([facility]) Systolic blood pressure 118 mm[Hg] 118 mm[Hg] A THENA ([facility]) Body height 67 [in_i] 67 [in_i] PIERCE ([facility]) Diastolic blood pressure 76 mm[Hg] 76 mm[Hg] PIERCE ([facility]) Body weight 3234.08 [oz_av] 3234.08 [oz_av] ATH ZANDRA ([facility]) Body height 67 [in_i] 67 [in_i] PIERCE ([facility]) Body weight 3234.08 [oz_av] 3234.08 [oz_av] ATH ZANDRA ([facility] [facility]) Body height 67 [in_i] 67 [in_i] PIERCE ([facility]) Body weight 3234.08 [oz_av] 3234.08 [oz_av] ATH ZANDRA ([facility]) Body height 67 [in_i] 67 [in_i] PIERCE ([facility]) Body weight 3234.08 [oz_av] 3234.08 [oz_av] ATH ZANDRA ([facility]) Body height 67 [in_i] 67 [in_i] PIERCE ([facility]) Body weight 3120 [oz_av] 3120 [oz_av] PIERCE ([facility]) Systolic blood pressure 131 mm[Hg] 131 mm[Hg] [facility] Body height 67 [in_i] 67 [in_i] PIERCE ([facility]) Diastolic blood pressure 86 mm[Hg] 86 mm[Hg] PIERCE ([facility]) Body weight 3120 [oz_av] 3120 [oz_av] PIERCE ([facility]) Systolic blood pressure 131 mm[Hg] 131 mm[Hg] A [facility] ([facility]) Body height 67 [in_i] 67 [in_i] PIERCE ([facility]) Diastolic blood pressure 86 mm[Hg] 86 mm[Hg] PIERCE ([facility]) Body weight 3120 [oz_av] 3120 [oz_av] PIERCE ([facility]) Systolic blood pressure 131 mm[Hg] 131 mm[Hg] [facility] Body height 67 [in_i] 67 [in_i] PIERCE ([facility]) Diastolic blood pressure 86 mm[Hg] 86 mm[Hg] PIERCE ([facility]) Body weight 3120 [oz_av] 3120 [oz_av] PIERCE ([facility]) Systolic blood pressure 131 mm[Hg] 131 mm[Hg] [facility] Body height 67 [in_i] 67 [in_i] PIERCE ([facility]) Diastolic blood pressure 86 mm[Hg] 86 mm[Hg] PIERCE ([facility]) Body weight 3126.08 [oz_av] 3126.08 [oz_av] ATH ZANDRA ([facility]) Systolic blood pressure 114 mm[Hg] 114 mm[Hg] [facility] Body height 67 [in_i] 67 [in_i] PIERCE ([facility]) Diastolic blood pressure 77 mm[Hg] 77 mm[Hg] PIERCE ([facility]) Body weight 3126.08 [oz_av] 3126.08 [oz_av] ATH ZANDRA ([facility]) Systolic blood pressure 114 mm[Hg] 114 mm[Hg] [facility] Body height 67 [in_i] 67 [in_i] PIERCE ([facility]) Diastolic blood pressure 77 mm[Hg] 77 mm[Hg] PIERCE ([facility]) Systolic blood pressure 114 mm[Hg] 114 mm[Hg] [facility] Body height 67 [in_i] 67 [in_i] PIERCE ([facility]) Diastolic blood pressure 77 mm[Hg] 77 mm[Hg] PIERCE ([facility]) Body weight 3126.08 [oz_av] 3126.08 [oz_av] ATH ZANDRA ([facility]) Systolic blood pressure 114 mm[Hg] 114 mm[Hg] [facility] Body height 67 [in_i] 67 [in_i] PIERCE ([facility]) Diastolic blood pressure 77 mm[Hg] 77 mm[Hg] PIERCE ([facility]) Body weight 3126.08 [oz_av] 3126.08 [oz_av] ATH ZANDRA ([facility]) Body mass index (BMI) [Ratio] 33.0 kg/m2 33.0 k g/m2 MEDENT ([facility]) Body weight 204.38 [lb_av] 204.38 [lb_av] MEDEN T ([facility]) Body height 66 [in_i] 66 [in_i] MEDENT ([facility]) 5'6" Body temperature 97.1 [degF] 97.1 [degF] MEDENT ([facility]) Body weight 3232 [oz_av] 3232 [oz_av] PIERCE ([facility]) Systolic blood pressure 115 mm[Hg] 115 mm[Hg] A THENA ([facility]) Body height 67 [in_i] 67 [in_i] PIERCE ([facility]) Diastolic blood pressure 77 mm[Hg] 77 mm[Hg] PIERCE ([facility]) Body weight 3232 [oz_av] 3232 [oz_av] PIERCE ([facility]) Systolic blood pressure 115 mm[Hg] 115 mm[Hg] [facility] Body height 67 [in_i] 67 [in_i] PIERCE ([facility]) Diastolic blood pressure 77 mm[Hg] 77 mm[Hg] PIERCE ([facility]) Body weight 3232 [oz_av] 3232 [oz_av] PIERCE ([facility]) Systolic blood pressure 115 mm[Hg] 115 mm[Hg] [facility] Body height 67 [in_i] 67 [in_i] PIERCE ([facility]) Diastolic blood pressure 77 mm[Hg] 77 mm[Hg] PIERCE ([facility]) Body weight 3232 [oz_av] 3232 [oz_av] PIERCE ([facility]) Systolic blood pressure 115 mm[Hg] 115 mm[Hg] [facility] Body height 67 [in_i] 67 [in_i] PIERCE ([facility]) Diastolic blood pressure 77 mm[Hg] 77 mm[Hg] PIERCE ([facility]) Body weight 3200 [oz_av] 3200 [oz_av] PIERCE ([facility]) Systolic blood pressure 116 mm[Hg] 116 mm[Hg] [facility] Body height 67 [in_i] 67 [in_i] PIERCE ([facility]) Diastolic blood pressure 85 mm[Hg] 85 mm[Hg] PIERCE ([facility]) Body weight 3200 [oz_av] 3200 [oz_av] PIERCE ([facility]) Systolic blood pressure 116 mm[Hg] 116 mm[Hg] [facility] Body height 67 [in_i] 67 [in_i] PIERCE ([facility]) Diastolic blood pressure 85 mm[Hg] 85 mm[Hg] PIERCE ([facility]) Body weight 3200 [oz_av] 3200 [oz_av] PIERCE ([facility]) Systolic blood pressure 116 mm[Hg] 116 mm[Hg] [facility] Body height 67 [in_i] 67 [in_i] PIERCE ([facility]) Diastolic blood pressure 85 mm[Hg] 85 mm[Hg] PIERCE ([facility]) Body weight 3200 [oz_av] 3200 [oz_av] PIERCE ([facility]) Systolic blood pressure 116 mm[Hg] 116 mm[Hg] [facility] Body height 67 [in_i] 67 [in_i] PIERCE ([facility]) Diastolic blood pressure 85 mm[Hg] 85 mm[Hg] PIERCE ([facility]) Patient Treatment Plan of Care Planned Activity Planned Date Details Description Data Source (s) Prednisone 10 MG Oral Tablet PIERCE ([facility]) Prazosin 1 MG Oral Capsule A THENA ([facility]) 12 HR Guaifenesin 600 MG Extended Release Oral Tablet PIERCE ([facility]) Metronidazole 500 MG Oral Tablet PIERCE ([facility]) meloxicam 7.5 MG Oral Tablet PIERCE ([facility]) Fluoxetine 10 MG Oral Capsule PIERCE ([facility]) doxycycline hyclate 100 MG Oral Tablet PIERCE ([facility]) Cyclobenzaprine hydrochloride 10 MG Oral Tablet PIERCE ([facility]) 24 HR Bupropion Hydrochloride 150 MG Extended Release Oral Tablet PIERCE ([facility]) Azithromycin 250 MG Oral Tablet PIERCE ([facility]) Prednisone 10 MG Oral Tablet PIERCE ([facility]) Prazosin 1 MG Oral Capsule A THENA ([facility]) 12 HR Guaifenesin 600 MG Extended Release Oral Tablet PIERCE ([facility]) Metronidazole 500 MG Oral Tablet PIERCE ([facility]) meloxicam 7.5 MG Oral Tablet PIERCE ([facility]) Fluoxetine 10 MG Oral Capsule PIERCE ([facility]) doxycycline hyclate 100 MG Oral Tablet PIERCE ([facility]) Cyclobenzaprine hydrochloride 10 MG Oral Tablet PIERCE ([facility]) 24 HR Bupropion Hydrochloride 150 MG Extended Release Oral Tablet PIERCE ([facility]) Azithromycin 250 MG Oral Tablet PIERCE ([facility]) Prednisone 10 MG Oral Tablet PIERCE ([facility]) Prazosin 1 MG Oral Capsule A THENA ([facility]) 12 HR Guaifenesin 600 MG Extended Release Oral Tablet PIERCE ([facility]) Metronidazole 500 MG Oral Tablet PIERCE ([facility]) meloxicam 7.5 MG Oral Tablet PIERCE ([facility]) Fluoxetine 10 MG Oral Capsule PIERCE ([facility]) doxycycline hyclate 100 MG Oral Tablet PIERCE ([facility]) Cyclobenzaprine hydrochloride 10 MG Oral Tablet PIERCE ([facility]) 24 HR Bupropion Hydrochloride 150 MG Extended Release Oral Tablet PIRECE ([facility]) Azithromycin 250 MG Oral Tablet PIERCE ([facility]) Prednisone 10 MG Oral Tablet PIERCE ([facility]) Prazosin 1 MG Oral Capsule A THENA ([facility]) 12 HR Guaifenesin 600 MG Extended Release Oral Tablet PIERCE ([facility]) Metronidazole 500 MG Oral Tablet PIERCE ([facility]) meloxicam 7.5 MG Oral Tablet PIERCE ([facility]) Fluoxetine 10 MG Oral Capsule PIERCE ([facility]) doxycycline hyclate 100 MG Oral Tablet PIERCE ([facility]) Cyclobenzaprine hydrochloride 10 MG Oral Tablet PIERCE ([facility]) 24 HR Bupropion Hydrochloride 150 MG Extended Release Oral Tablet PIERCE ([facility]) Azithromycin 250 MG Oral Tablet PIERCE ([facility])
[2020-07-15] MEDS ORDERED: GABA-282 (01:16)
[2020-07-15] MEDS ORDERED: MELO15TA28 (01:16)
[2020-07-15] MEDS ORDERED: VITA50005 (01:16)
[2020-07-15] MEDS ORDERED: METH20TA29 (01:16)
[2020-07-15] MEDS ORDERED: ALBU8.5H (01:16)
[2020-07-15] MEDS ORDERED: SYSTOIN (01:16)
--- OUTSIDE RECORDS SUMMARY | 2020-07-15 04:38 | CCD ---
Author Author [facility] Organization [facility] Address Unknown Phone Unavailable Care Team Providers Care [employer] Ax Consultant Name Role Phone Jh, A Carolynn M48/M60 TANK DRIVER Unavailable Unavailable Jh, A Carolynn M48/M60 TANK DRIVER Unavailable Unavailable Jh, A Carolynn M48/M60 TANK DRIVER Unavailable Unavailable Jh, A Carolynn M48/M60 TANK DRIVER Unavailable Unavailable Hj, A Carolynn M48/M60 TANK DRIVER Unavailable Unavailable Jh, A Carolynn M48/M60 TANK DRIVER Unavailable Unavailable Jh, A Carolynn M48/M60 TANK DRIVER Unavailable Unavailable Jh, A Carolynn M48/M60 TANK DRIVER Unavailable Unavailable Jh, A Carolynn M48/M60 TANK DRIVER Unavailable Unavailable Jh, A Carolynn M48/M60 TANK DRIVER Unavailable Unavailable Jh, A Carolynn M48/M60 TANK DRIVER Unavailable Unavailable Jh, A Carolynn M48/M60 TANK DRIVER Unavailable Unavailable Jh, A Carolynn M48/M60 TANK DRIVER Unavailable Unavailable Jh, A Carolynn M48/M60 TANK DRIVER Unavailable Unavailable Jh, A Carolynn M48/M60 TANK DRIVER Unavailable Unavailable Jh, A Carolynn M48/M60 TANK DRIVER Unavailable Unavailable Jh, A Carolynn M48/M60 TANK DRIVER Unavailable Unavailable Jh, A Carolynn M48/M60 TANK DRIVER Unavailable Unavailable Jh, A Carolynn M48/M60 TANK DRIVER Unavailable Unavailable Jh, A Carolynn M48/M60 TANK DRIVER Unavailable Unavailable Jh, A Carolynn M48/M60 TANK DRIVER Unavailable Unavailable Jh, A Carolynn M48/M60 TANK DRIVER Unavailable Unavailable Jh, A Carolynn M48/M60 TANK DRIVER Unavailable Unavailable Jh, A Carolynn M48/M60 TANK DRIVER Unavailable Unavailable Jh, A Carolynn M48/M60 TANK DRIVER Unavailable Unavailable Jh, A Carolynn M48/M60 TANK DRIVER Unavailable Unavailable Jh, A Carolynn M48/M60 TANK DRIVER Unavailable Unavailable Jh, A Carolynn M48/M60 TANK DRIVER Unavailable Unavailable Vaneenenaam, Isauro Graves MD Unavailable [...] Isauro Graves MD Unavailable Unavailable Jh, Carolynn M48/M60 TANK DRIVER M48/M60 TANK DRIVER Unavailable Unavailable Jh, A Carolynn M48/M60 TANK DRIVER Unavailable Unavailable Jh, A Carolynn M48/M60 TANK DRIVER Unavailable Unavailable Jh, A Carolynn M48/M60 TANK DRIVER Unavailable Unavailable Jh, A Carolynn M48/M60 TANK DRIVER Unavailable Unavailable Jh, A Carolynn M48/M60 TANK DRIVER Unavailable Unavailable Jh, A Carolynn M48/M60 TANK DRIVER Unavailable Unavailable Jh, A Carolynn M48/M60 TANK DRIVER Unavailable Unavailable Jh, A Carolynn M48/M60 TANK DRIVER Unavailable Unavailable Jh, A Carolynn M48/M60 TANK DRIVER Unavailable Unavailable Jh, A Carolynn M48/M60 TANK DRIVER Unavailable Unavailable Jh, A Carolynn M48/M60 TANK DRIVER Unavailable Unavailable Jh, A Carolynn M48/M60 TANK DRIVER Unavailable Unavailable Jh, A Carolynn M48/M60 TANK DRIVER Unavailable Unavailable Jh, A Carolynn M48/M60 TANK DRIVER Unavailable Unavailable Jh, A Carolynn M48/M60 TANK DRIVER Unavailable Unavailable Jh, A Carolynn M48/M60 TANK DRIVER Unavailable Unavailable Jh, A Carolynn M48/M60 TANK DRIVER Unavailable Unavailable Jh, A Carolynn M48/M60 TANK DRIVER Unavailable Unavailable Jh, A Carolynn M48/M60 TANK DRIVER Unavailable Unavailable Jh, A Carolynn M48/M60 TANK DRIVER Unavailable Unavailable Jh, A Carolynn M48/M60 TANK DRIVER Unavailable Unavailable Jh, A Carolynn M48/M60 TANK DRIVER Unavailable Unavailable Jh, A Carolynn M48/M60 TANK DRIVER Unavailable Unavailable Jh, A Carolynn M48/M60 TANK DRIVER Unavailable Unavailable Jh, A Carolynn M48/M60 TANK DRIVER Unavailable Unavailable Jh, A Carolynn M48/M60 TANK DRIVER Unavailable Unavailable Jh, A Carolynn M48/M60 TANK DRIVER Unavailable Unavailable Jh, A Carloynn M48/M60 TANK DRIVER Unavailable Unavailable Fostveit, Mary Unavailable Unavailable Fostveit, [...] is protected by Article 27-F of the [facility] Public Health law. If you continue you may have access to information: Regarding HIV / AIDS; Provided by facilities licensed or operated by the [facility] Office of Mental Health; or Provided by the [facility] Office for People With Developmental Disabilities. If such information is present, then the following [facility] mandated warning applies: This information has [...] law may result in a fine or senior care sentence or both. A general authorization for the release of medical or other information is NOT sufficient authorization for further disc losure. Family History Family Member Name Family Member Gender Family Member Status Date o f Status Description Data Source(s) Unknown Unknown Problem [facility] ([facility], [facility]) Encounters Encounter Providers Location Date Indications Data Source(s ) CESILIA Weiss: [address] [place] [address], Ph. [facility]: [facility] 07/[facility]/2020 12:00:00 AM EST [place] ([facility]) Dawn Tinoco MD: [address] [place] [address], Ph. Attender: Dawn Tinoco MD [facility] Medical 05/19/2020 12:00:00 AM EST [place] ([facility]) Dawn Tinoco MD: [address] [place] [address], Ph. Attender: Dawn Tinoco MD [facility] Medical 05/19/2020 12:00:00 AM EST [place] ([facility]) CESILIA Weiss: [address] [place] [address], Ph. [facility]: [facility] 05/18/2020 12:00:00 AM EST [place] ([facility]) CESILIA WeissBC: [address], [place] [address], Ph. Attender: Carolynn Peñaloza [facility] Medical 05/18/2020 12:00:00 AM EST [place] ([facility]) VASILE RachelW-R: [address], [place] [address], Ph. Attender: Mary Gonzalez [facility] Medical 04/25/2020 12:00:00 AM EST [place] ([facility]) Mary Gutierrez LCSW-R: [address], [place] [address], Ph. Attender: Mary Gonzalez [facility] Medical 04/25/2020 12:00:00 AM EST [place] ([facility]) Mary Gutierrez LCSW-R: [address], [place] [address], Ph. Attender: Mary Gonzalez [facility] Medical 04/25/2020 12:00:00 AM EST [place] ([facility]) Outpatient Attender: AYLEEN Peñaloza [facility] 04/11/2020 11:35:01 A M EST [facility] CESILIA WeissBC: [address], [place] [address], Ph. Attender: Carolynn Peñaloza [facility] Medical 04/11/2020 12:00:00 AM EST [place] ([facility]) CESILIA WeissBC: [address], [place] [address], Ph. Attender: Carolynn Peñaloza [facility] Medical 04/11/2020 12:00:00 AM EST [place] ([facility]) AYLEEN WeissBC: [address] [place] [address], Ph. Attender: Caroylnn ABBASI [facility] Medical 04/11/2020 12:00:00 AM [facility] [place] ([facility]) [facility] [address] [place] [address], Ph. Attender: Carolynn ABBASI [facility] Medical 04/11/2020 12:00:00 AM [facility] [place] ([facility]) Outpatient Attender: Isauro Casarez MD Physical Therap y 03/31/2020 03:00:[facility] Outpatient Attender: Carolynn GAO 03/26/2020 08:3 6:01 PM EDT [facility] Outpatient Attender: Carolynn ABBASI FP 03/25/2020 12:4 7:00 AM EDT [facility] Outpatient Attender: AYLEEN GAO 03/09/2020 10:51:00 A M EDT [facility] Outpatient Attender: AYLEEN GAO 02/23/2020 10:36:01 A M EDT [facility] Outpatient Attender: AYLEEN GAO 02/22/2020 10:05:01 A M EDT [facility] Outpatient Attender: Carolynn GAO 02/18/2020 08:1 3:00 AM EDT [facility] Outpatient Attender: AYLEEN GAO 02/10/2020 11:13:00 A M EDT [facility] Outpatient Attender: Carolynn GAO 02/01/2020 12:1 7:01 PM EDT [facility] Outpatient Attender: AYLEEN GAO 01/29/2020 10:08:01 A M EDT [facility] Outpatient Attender: AYLEEN GAO 01/20/2020 11:21:01 A M EDT [facility] Outpatient Attender: Carolynn GAO 01/18/2020 09:2 6:00 AM EDT [facility] Outpatient Attender: Carolynn KIMP FP 01/18/2020 09:0 9:01 AM EDT [facility] Outpatient Attender: AYLEEN KIMP FP 01/16/2020 09:44:02 P M EDT [facility] Outpatient Attender: Carolynn Peñaloza M48/M60 TANK DRIVER FP 01/16/2020 09:4 4:01 PM EDT [facility] Outpatient Attender: AYLEEN KIMP FP 01/16/2020 09:44:01 P M EDT [facility] Outpatient Attender: AYLEEN ePñaloza M48/M60 TANK DRIVER FP 01/12/2020 10:12:00 A M EDT [facility] Outpatient Attender: Carolynn KIMP FP 12/30/2019 04:2 1:00 PM EDT [facility] Outpatient Attender: AYLEEN Peñaloza M48/M60 TANK DRIVER FP 12/24/2019 08:48:00 A M EDT [facility] Outpatient Attender: Carolynn KIMP FP 12/23/2019 11:5 4:03 AM EDT [facility] Outpatient Attender: Carolynn KIMP FP 12/23/2019 10:2 8:59 AM EDT [facility] Outpatient Attender: Carolynn KIMP FP 12/23/2019 10:2 8:01 AM EDT [facility] Outpatient Attender: Carolynn KIMP FP 12/18/2019 11:1 1:03 PM EDT [facility] Outpatient Attender: AYLEEN KIMP FP 12/18/2019 11:11:02 P M EDT [facility] Outpatient Attender: Carolynn KIMP FP 12/18/2019 11:0 4:01 PM EDT [facility] Outpatient Attender: Carolynn KIMP FP 12/18/2019 11:0 3:00 PM EDT [facility] Outpatient Attender: AYLEEN KIMP FP 12/18/2019 11:02:59 P M EDT [facility] Outpatient Attender: AYLEEN KIMP FP 12/17/2019 08:44:01 A M EDT [facility] Outpatient Attender: AYLEEN KIMP FP 12/16/2019 04:02:02 P M EDT [facility] Outpatient Attender: aCrolynn KIMP FP 12/16/2019 04:0 1:02 PM EDT [facility] Outpatient Attender: AYLEEN KIMP FP 12/16/2019 03:24:00 P M EDT [facility] Outpatient Attender: AYLEEN KIMP FP 12/14/2019 02:50:01 P M EDT [facility] Outpatient Attender: Carolynn KIMP FP 12/13/2019 07:5 3:01 PM EDT [facility] Outpatient Attender: AYLEEN KIMP FP 12/04/2019 03:31:00 P M EDT [facility] Outpatient Attender: AYLEEN KIMP FP 11/25/2019 09:55:02 A M EDT [facility] Outpatient Attender: AYLEEN Peñaloza M48/M60 TANK DRIVER FP 11/17/2019 01:21:00 P M EDT [facility] Outpatient Attender: Carolynn KIMP FP 11/12/2019 11:4 3:03 AM EDT [facility] Outpatient Attender: AYLEEN Peñaloza M48/M60 TANK DRIVER FP 11/10/2019 10:44:00 A M EDT [facility] Outpatient Attender: Carolynn KIMP FP 11/10/2019 10:4 3:01 AM EDT [facility] Outpatient Attender: AYLEEN KIMP FP 11/10/2019 10:40:01 A M EDT [facility] Outpatient Attender: AYLEEN Peñaloza M48/M60 TANK DRIVER FP 11/03/2019 12:52:01 P M EDT [facility] Outpatient Attender: AYLEEN KIMP FP 10/27/2019 03:36:01 P M EDT [facility] Outpatient Attender: Carolynn KIMP FP 10/27/2019 03:3 6:00 PM EDT [facility] Outpatient Attender: Carolynn KIMP FP 10/23/2019 02:4 6:01 PM EDT [facility] Outpatient Attender: AYLEEN KIMP FP 10/20/2019 12:37:00 P M EDT [facility] Outpatient Attender: AYLEEN KIMP FP 10/20/2019 10:55:01 A M EDT [facility] Outpatient Attender: Carolynn KIMP FP 10/16/2019 03:1 2:03 PM EDT [facility] Outpatient Attender: AYLEEN Peñaloza M48/M60 TANK DRIVER FP 10/15/2019 03:52:01 P M EDT [facility] Outpatient Attender: AYLEEN Peñaloza M48/M60 TANK DRIVER FP 10/15/2019 02:10:01 P M EDT [facility] Outpatient Attender: AYLEEN Peñaloza M48/M60 TANK DRIVER FP 10/13/2019 09:03:01 A M EDT [facility] Outpatient Attender: AYLEEN Peñaloza M48/M60 TANK DRIVER FP 10/12/2019 05:29:00 P M EDT [facility] Outpatient Attender: AYLEEN Peñaloza M48/M60 TANK DRIVER FP 08/26/2019 03:49:01 P M EDT [facility] Outpatient Attender: Carolynn Peñaloza M48/M60 TANK DRIVER FP 08/12/2019 10:0 3:01 PM [facility] Outpatient Referrer: Isauro Casarez MD 08/12/2019 01: 44:00 PM EST [facility] Outpatient Referrer: Isauro Casarez MD 08/12/2019 01: 44:00 PM EST [facility] Outpatient Attender: M48/M60 TANK DRIVER Jh M48/M60 TANK DRIVER FP 08/07/2019 05:16:01 P M [facility] Outpatient Attender: Carolynn Peñaloza M48/M60 TANK DRIVER FP 08/07/2019 05:1 6:00 PM [facility] Outpatient Attender: Carolynn Peñaloza M48/M60 TANK DRIVER FP 08/07/2019 05:1 5:01 PM [facility] Outpatient Attender: M48/M60 TANK DRIVERBalaji Peñaloza M48/M60 TANK DRIVER FP 08/07/2019 05:15:00 P M [facility] Outpatient Referrer: Isauro Casarez MD 08/05/2019 02: [...] [facility] Outpatient 07/24/2019 03:53:00 PM [facility] Outpatient 07/24/2019 03:29:00 PM [facility] Outpatient Attender: Carolynn KIMP FP 07/22/2019 12:5 7:02 PM [facility] Outpatient Attender: Carolynn KIMP FP 07/12/2019 03:1 6:00 PM [facility] Outpatient Attender: AYLEEN KIMP FP 07/09/2019 11:20:21 A M [facility] Outpatient Attender: AYLEEN KIMP FP 07/03/2019 09:28:46 A M [facility] Outpatient Attender: AYLEEN KIMP FP 07/03/2019 09:23:52 A M [facility] Outpatient Attender: AYLEEN KIMP FP 07/01/2019 05:22:02 A M [facility] Outpatient Attender: Carolynn KIMP FP 07/01/2019 05:2 1:05 AM [facility] Outpatient Attender: AYLEEN KIMP FP 06/30/2019 06:12:00 P [facility] Outpatient Attender: AYLEEN Peñaloza M48/M60 TANK DRIVER FP 06/30/2019 05:24:00 P [facility] Outpatient Attender: AYLEEN KIMP FP 06/30/2019 05:16:01 P [facility] Outpatient Attender: AYLEEN KIMP FP 06/30/2019 05:04:01 P [facility] Outpatient Attender: AYLEEN KIMP FP 06/30/2019 05:04:01 P [facility] Outpatient Attender: AYLEEN KIMP FP 06/30/2019 05:03:00 P [facility] Outpatient Attender: AYLEEN KIMP FP 06/23/2019 04:13:01 P [facility] Outpatient Attender: AYLEEN KIMP FP 06/16/2019 01:25:02 P [facility] Outpatient Attender: AYLEEN KIMP FP 06/16/2019 01:13:00 P [facility] Outpatient Attender: AYLEEN KIMP FP 06/05/2019 03:28:00 P M EST [facility] Outpatient Attender: AYLEEN Peñaloza [facility] 05/22/2019 11:31:01 A M [facility] Outpatient Attender: Carolynn Peñaloza [facility] 05/20/2019 12:3 9:01 AM [facility] Outpatient Attender: AYLEEN Peñaloza [facility] 05/18/2019 06:02:02 P M [facility] Outpatient Attender: AYLEEN Peñaloza [facility] 05/18/2019 04:15:[address] [facility] Medications Medication Brand Name Start Date Product Form Dose Route Admi nistrative Instructions Pharmacy Instructions Status Indications Reaction Description Data Source(s) Metronidazole 500 MG Oral Tablet metronidazole 500 mg tablet metronidazole 500 mg tablet completed metronidazol e 500 MG Oral Tablet [facility]) 24 HR Bupropion Hydrochloride 150 MG Ext ended Release Oral Tablet bupropion HCl XL 150 mg 24 hr tablet, extended release bupropion HCl XL 150 mg 24 hr tablet, extended release completed 24 HR bupropion hydrochloride 150 MG Extended Release Oral Tablet [facility]) Fluoxetine 10 MG Oral Capsule fluoxetine 10 mg capsule fluox etine 10 mg capsule completed fluoxetine 10 MG Oral Capsule [place] ([facility]) 12 HR Guaifenesin 600 MG Extended Releas e Oral Tablet Mucus Relief ER 600 mg tablet, extended release Mucus Relief ER 600 mg tablet, extended release completed 12 HR guaifenesin 60 0 MG Extended Release Oral Tablet [place] ([facility]) Prazosin 1 MG Oral Capsule prazosin 1 mg capsule prazosin 1 mg capsule completed prazosin 1 MG Oral Capsul e [facility]) 12 HR Guaifenesin 600 MG Extended Releas e Oral Tablet Mucus Relief ER 600 mg tablet, extended release Mucus Relief ER 600 mg tablet, extended release completed 12 HR guaifenesin 60 0 MG Extended Release Oral Tablet [place] ([facility]) meloxicam 7.5 MG Oral Tablet meloxicam 7.5 mg tablet meloxicam 7 .5 mg tablet completed meloxicam 7.5 MG Oral Tablet [place] ([facility]) Cyclobenzaprine hydrochloride 10 MG Oral Tablet cyclob enzaprine 10 mg tablet cyclobenzaprine 10 mg tablet completed cyclobenzaprine hydrochloride 10 MG Oral Tablet [facility]) Prazosin 1 MG Oral Capsule prazosin 1 mg capsule prazosin 1 mg capsule completed prazosin 1 MG Oral Capsul e [place] ([facility]) Metronidazole 500 MG Oral Tablet metronidazole 500 mg tablet metronidazole 500 mg tablet completed metronidazol e 500 MG Oral Tablet [place] ([facility]) Metronidazole 500 MG Oral Tablet metronidazole 500 mg tablet metronidazole 500 mg tablet completed metronidazol e 500 MG Oral Tablet [place] ([facility]) Fluoxetine 10 MG Oral Capsule fluoxetine 10 mg capsule fluox etine 10 mg capsule completed fluoxetine 10 MG Oral Capsule [place] ([facility]) 12 HR Guaifenesin 600 MG Extended Releas e Oral Tablet Mucus Relief ER 600 mg tablet, extended release Mucus Relief ER 600 mg tablet, extended release completed 12 HR guaifenesin 60 0 MG Extended Release Oral Tablet [place] ([facility]) meloxicam 7.5 MG Oral Tablet meloxicam 7.5 mg tablet meloxicam 7 .5 mg tablet completed meloxicam 7.5 MG Oral Tablet [place] ([facility]) doxycycline hyclate 100 MG Oral Tablet doxycycline hyc late 100 mg tablet doxycycline hyclate 100 mg tablet comp leted doxycycline hyclate 100 MG Oral Tablet [place] ([facility]) doxycycline hyclate 100 MG Oral Tablet doxycycline hyc late 100 mg tablet doxycycline hyclate 100 mg tablet comp leted doxycycline hyclate 100 MG Oral Tablet [place] ([facility]) Metronidazole 500 MG Oral Tablet metronidazole 500 mg tablet metronidazole 500 mg tablet completed metronidazol e 500 MG Oral Tablet [place] ([facility]) Azithromycin 250 MG Oral Tablet azithromycin 250 mg ta blet azithromycin 250 mg tablet completed azithromycin 25 0 MG Oral Tablet [place] ([facility]) Cyclobenzaprine hydrochloride 10 MG Oral Tablet cyclob enzaprine 10 mg tablet cyclobenzaprine 10 mg tablet completed cyclobenzaprine hydrochloride 10 MG Oral Tablet [place] ([facility]) Prednisone 10 MG Oral Tablet prednisone 10 mg tablet prednisone 10 mg tablet completed prednisone 10 MG Oral Tablet [place] ([facility]) Prazosin 1 MG Oral Capsule prazosin 1 mg capsule prazosin 1 mg capsule completed prazosin 1 MG Oral Capsul e [place] ([facility]) Prednisone 10 MG Oral Tablet prednisone 10 mg tablet prednisone 10 mg tablet completed prednisone 10 MG Oral Tablet [place] ([facility]) doxycycline hyclate 100 MG Oral Tablet doxycycline hyc late 100 mg tablet doxycycline hyclate 100 mg tablet comp leted doxycycline hyclate 100 MG Oral Tablet [place] ([facility]) Prednisone 10 MG Oral Tablet prednisone 10 mg tablet prednisone 10 mg tablet completed prednisone 10 MG Oral Tablet [place] ([facility]) Fluoxetine 10 MG Oral Capsule fluoxetine 10 mg capsule fluox etine 10 mg capsule completed fluoxetine 10 MG Oral Capsule [place] ([facility]) Azithromycin 250 MG Oral Tablet azithromycin 250 mg ta blet azithromycin 250 mg tablet completed azithromycin 25 0 MG Oral Tablet [place] ([facility]) Fluoxetine 10 MG Oral Capsule fluoxetine 10 mg capsule fluox etine 10 mg capsule completed fluoxetine 10 MG Oral Capsule [place] ([facility]) meloxicam 7.5 MG Oral Tablet meloxicam 7.5 mg tablet meloxicam 7 .5 mg tablet completed meloxicam 7.5 MG Oral Tablet [place] ([facility]) 24 HR Bupropion Hydrochloride 150 MG Ext ended Release Oral Tablet bupropion HCl XL 150 mg 24 hr tablet, extended release bupropion HCl XL 150 mg 24 hr tablet, extended release completed 24 HR bupropion hydrochloride 150 MG Extended Release Oral Tablet [place] ([facility]) Cyclobenzaprine hydrochloride 10 MG Oral Tablet cyclob enzaprine 10 mg tablet cyclobenzaprine 10 mg tablet completed cyclobenzaprine hydrochloride 10 MG Oral Tablet [place] ([facility]) Prazosin 1 MG Oral Capsule prazosin 1 mg capsule prazosin 1 mg capsule completed prazosin 1 MG Oral Capsul e [place] ([facility]) 24 HR Bupropion Hydrochloride 150 MG Ext ended Release Oral Tablet bupropion HCl XL 150 mg 24 hr tablet, extended release bupropion HCl XL 150 mg 24 hr tablet, extended release completed 24 HR bupropion hydrochloride 150 MG Extended Release Oral Tablet [place] ([facility]) doxycycline hyclate 100 MG Oral Tablet doxycycline hyc late 100 mg tablet doxycycline hyclate 100 mg tablet comp leted doxycycline hyclate 100 MG Oral Tablet [place] ([facility]) 24 HR Bupropion Hydrochloride 150 MG Ext ended Release Oral Tablet bupropion HCl XL 150 mg 24 hr tablet, extended release bupropion HCl XL 150 mg 24 hr tablet, extended release completed 24 HR bupropion hydrochloride 150 MG Extended Release Oral Tablet [place] ([facility]) 12 HR Guaifenesin 600 MG Extended Releas e Oral Tablet Mucus Relief ER 600 mg tablet, extended release Mucus Relief ER 600 mg tablet, extended release completed 12 HR guaifenesin 60 0 MG Extended Release Oral Tablet [place] ([facility]) Cyclobenzaprine hydrochloride 10 MG Oral Tablet cyclob enzaprine 10 mg tablet cyclobenzaprine 10 mg tablet completed cyclobenzaprine hydrochloride 10 MG Oral Tablet [place] ([facility]) meloxicam 7.5 MG Oral Tablet meloxicam 7.5 mg tablet meloxicam 7 .5 mg tablet completed meloxicam 7.5 MG Oral Tablet [place] ([facility]) Azithromycin 250 MG Oral Tablet azithromycin 250 mg ta blet azithromycin 250 mg tablet completed azithromycin 25 0 MG Oral Tablet [facility] ([facility]) Azithromycin 250 MG Oral Tablet azithromycin 250 mg ta blet azithromycin 250 mg tablet completed azithromycin 25 0 MG Oral Tablet [facility] ([facility]) Prednisone 10 MG Oral Tablet prednisone 10 mg tablet prednisone 10 mg tablet completed prednisone 10 MG Oral Tablet [facility] ([facility]) Insurance Providers Payer name Policy type / Coverage type Policy ID Covered green party ID Covered green party's relationship to [place] Policy [place] Plan Information KIKO [id number] SP [id number] SP [id number] KIKO CARE [place] O [id number] S [id number] Medicaid S [id number] S [id number] Managed Care [place] P [id number] S [id number] Medicaid S [id number] S [id number] MEDICAID [id number] SP [id number] Self Pay P UNAVAILABLE S UNAVAILA BLE Medicaid S [id number] S [id number] Managed Care [place] P [id number] S [id number] Medicaid S [id number] S [id number] ANS-Medicaid [id number] ANSI-Medicaid [id number] ANSI-Commercial [id number] Medicaid S UNAVAILABLE S UNAVAILA ЕЛЕНА KIKO [id number] SP [id number] [facility] [id number] SP [id number] [facility] [id number] SP [id number] [facility] Health Maintenance Organization (HMO) [id number] Self [id number] [place] [id number] SP [id number] [facility] [id number] SP [id number] [facility] [id number] SP [id number] Problems, Conditions, and Diagnoses Code Display Name Description Problem Type Effective Dates Data Source(s) 447116688 Unspecified abnormal cytolog ical findings in specimens from cervix uteri Unspecified abnormal cytological findings in specimens from cervix uteri 01/16/2020 09:43:03 PM EDT [facility] [id number] Evaluation finding Evaluation Finding Problem 01/2020 12:00:00 AM EDT [place] ([facility]) [id number] Evaluation finding Evaluation Finding Problem 01/2020 12:00:00 AM EDT [place] ([facility]) [id number] Evaluation finding Evaluation Finding Problem 01/2020 12:00:00 AM EDT [place] ([facility]) [id number] Evaluation finding Evaluation Finding Problem 01/2020 12:00:00 AM EDT [place] ([facility]) 041.9 Bacterial vaginosis Bacterial vaginosis 020 04:00:20 PM EDT [facility] V76.2 Screening for malignant neoplasms of the cervix Screening for malignant neoplasms of the cervix 12/16/2019 03:23:41 PM EDT [facility] 06613553 Acute vaginitis Acute Vaginitis Problem 12/16/2019 12:0 0:00 AM EDT [place] ([facility]) 74594018 Acute vaginitis Acute Vaginitis Problem 12/16/2019 12:0 0:00 AM EDT [facility]) [id number] Acute vaginitis Acute Vaginitis Problem 12/16/2019 12:0 0:00 AM EDT [place] ([facility]) 38326288 Acute vaginitis Acute Vaginitis Problem 12/16/2019 12:0 0:00 AM EDT [place] ([facility]) 53357379 Posttraumatic stress disorder Posttraumatic Stress Dis order Problem 11/23/2019 12:00:00 AM EDT [facility] ([facility]) 05384575 Posttraumatic stress disorder Posttraumatic Stress Dis order Problem 11/23/2019 12:00:00 AM EDT [place] ([facility]) 40727376 Posttraumatic stress disorder Posttraumatic Stress Dis order Problem 11/23/2019 12:00:00 AM EDT [place] ([facility]) 35146667 Posttraumatic stress disorder Posttraumatic Stress Dis order Problem 11/23/2019 12:00:00 AM EDT [place] ([facility]) 786.2 Cough Cough 11/10/2019 10:42:50 AM ED T [facility] [id number] Cough Cough Problem 11/10/2019 12:00:00 AM ED T [place] ([facility]) 75147291 Cough Cough Problem 11/10/2019 12:00:00 AM ED T [place] ([facility]) 68925076 Cough Cough Problem 11/10/2019 12:00:00 AM ED T [place] ([facility]) 00094459 Cough Cough Problem 11/10/2019 12:00:00 AM ED T [place] ([facility]) 309.4 ADJUSTMENT DISORDER, W/ MIXED ANXIETY AN D DEPRESSED MOOD ADJUSTMENT DISORDER, W/ MIXED ANXIETY AND DEPRESSED MOOD 10/27/2019 03: 35:12 PM EDT [facility] [id number] Adjustment disorder with mixed disturban ce of emotions AND conduct 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 10/27/2019 12:00:00 AM EDT [place] ([facility]) 72629901 Adjustment disorder with mixed disturban ce of emotions AND conduct 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 10/27/2019 12:00:00 AM EDT [place] ([facility]) 72270080 Adjustment disorder with mixed disturban ce of emotions AND conduct 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 10/27/2019 12:00:00 AM EDT [facility] ([facility]) 80723220 Adjustment disorder with mixed disturban ce of emotions AND conduct 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 10/27/2019 12:00:00 AM EDT [facility] ([facility]) F12.90 Cannabis use, unspecified, uncomplicated Cannabis use, unspecified, uncomplicated 10/15/2019 03:50:05 PM EDT [facility] 03403417 Cannabis abuse Cannabis Abuse Problem 10/15/2019 12:00: 00 AM EDT [facility] ([facility]) 46413414 Cannabis abuse Cannabis Abuse Problem 10/15/2019 12:00: 00 AM EDT [facility] ([facility]) 76666718 Cannabis abuse Cannabis Abuse Problem 10/15/2019 12:00: 00 AM EDT [facility] ([facility]) 88917074 Cannabis abuse Cannabis Abuse Problem 10/15/2019 12:00: 00 AM EDT [facility] ([facility]) 786.09 Dyspnea on exertion Dyspnea on exertion 020 05:20:54 AM EST [facility] [id number] Pain in right hip joint Pain in right hip joint 07/01/2019 05:20:54 AM EST [facility] [id number] Pain in right hip joint Pain in Right Hip Joint Pro blem 06/30/2019 12:00:00 AM EST [facility] ([facility]) 360329448 Dyspnea Dyspnea Problem 06/30/2019 12:00:00 AM RODGER Brittany [facility] ([facility]) [id number] Pain in right hip joint Pain in Right Hip Joint Pro blem 06/30/2019 12:00:00 AM EST [facility] ([facility]) 990370207 Dyspnea Dyspnea Problem 06/30/2019 12:00:00 AM RODGER [place] ([facility]) [id number] Pain in right hip joint Pain in Right Hip Joint Pro blem 06/30/2019 12:00:00 AM EST [facility] ([facility]) 052666778 Dyspnea Dyspnea Problem 06/30/2019 12:00:00 AM RODGER [place] ([facility]) [id number] Pain in right hip joint Pain in Right Hip Joint Pro blem 06/30/2019 12:00:00 AM MOSES [place] ([facility]) [id number] Dyspnea Dyspnea Problem 06/30/2019 12:00:00 AM RODGER [place] ([facility]) 782.0 Paresthesia of lower extremity Paresthesia of lower ex tremity 05/18/2019 06:01:21 PM [facility] 782.0 Paresthesia of upper limb Paresthesia of upper limb 05/18/2019 06:01:21 PM [facility] [id number] Tingling of skin Tingling of Skin Problem 05/18/2019 12 :00:00 AM EST [facility] ([facility]) [id number] Tingling of skin Tingling of Skin Problem 05/18/2019 12 :00:00 AM EST [facility] ([facility]) 610100859 Tingling of skin Tingling of Skin Problem 05/18/2019 12 :00:00 AM EST [facility] ([facility]) 031143480 Tingling of skin Tingling of Skin Problem 05/18/2019 12 :00:00 AM EST [facility] ([facility]) Surgeries/Procedures Procedure Description Date Indications Data Source(s) RADEX FOOT COMPLETE MINIMUM 3 VIEWS 03/31/2020 12:00:0 0 AM EDT [facility] ([facility] ) RADEX SPINE LUMBOSACRAL MINIMUM 4 VIEWS 07/22/2019 12: 00:00 AM EST [facility] ([facility] ) X-Ray Hip Unilateral With Pelvis 2-3 Views 07/22/2019 12:00:00 AM EST [facility] ([facility] ) Results ID Date Data Source [id number] 05/18/2020 10:30:00 AM EST [facility] ([facility]) Name Value Range Interpretation Code Description Data Shereen rce(s) Supporting Document(s) Hemoglobin A1c/Hemoglobin.total in Blood 5.7 % normal Hemoglobin a1C [place] ([facility]) estimated average glucose 117 mg/dL 60-110 Above high norm al Estimated Average Glucose [place] ([facility]) ID Date Data Source [id number] 05/18/2020 10:30:00 AM EST [facility] ([facility]) Name Value Range Interpretation Code Description Data Shereen rce(s) Supporting Document(s) total 25(oh) vitamin D 15.3 NG/mL 30.0-100.0 Below low normal T otal 25(Oh) Vitamin D [facility] ([facility]) ID Date Data Source [id number] 05/18/2020 10:30:00 AM EST [facility] ([facility]) Name Value Range Interpretation Code Description Data Shereen rce(s) Supporting Document(s) thyroid stimulating hormone 4.240 uIU/mL 0.358-3.740 Above high no rmal Thyroid Stimulating Hormone [facility] ([facility]) free T4 1.27 NG/dL 0.76-1.46 normal Free T4 [facility] ([facility]) ID Date Data Source [id number] 05/18/2020 10:30:00 AM EST [facility] ([facility]) Name Value Range Interpretation Code Description Data Shereen rce(s) Supporting Document(s) triglycerides level 165 mg/dL <150 Above high normal Triglycer ides Level [facility] ([facility]) cholesterol level 213 mg/dL <200 Above high normal Cholesterol Level [facility] ([facility]) Cholesterol in LDL [Mass/volume] in Serum or Plasma 130 mg/dL <100 Above high normal LDL Cholesterol [facility] ([facility]) non-HDL-C 163 mg/dL normal Non-hdl-c [facility] ([facility]) HDL cholesterol 50 mg/dL >40 normal HDL Cholesterol [facility] NA ([facility]) cholesterol risk ratio <5 normal Cholesterol R isk Ratio [facility] ([facility]) ID Date Data Source [id number] 05/18/2020 10:30:00 [facility] Name Value Range Interpretation Code Description Data Shereen rce(s) Supporting Document(s) blood urea nitrogen 20 mg/dL 7-18 Above high normal Blood Ure a Nitrogen [facility] ([facility]) glucose, fasting 109 mg/dL 70-100 Above high normal Glucose, Fas ting [facility] ([facility]) creatinine for GFR 0.78 mg/dL 0.55-1.30 normal Creatinine for GF R [facility] ([facility]) sodium level 142 mEq/L 136-145 normal Sodium Level [facility] potassium serum 3.6 mEq/L 3.5-5.1 normal Potassium Serum [facility] ([facility]) glomerular filtration rate > 60.0 >60 normal Glomerula r Filtration Rate [facility] ([facility]) calcium level 8.9 mg/dL 8.5-10.1 normal Calcium Level [facility] ( [facility]) carbon dioxide level 27 mEq/L 21-32 normal Carbon Dioxide Level [facility] ([facility]) anion gap 3 mEq/L 8-16 Below low normal Anion Gap [facility] ( [facility]) chloride level 112 mEq/L 98-107 Above high normal Chloride Level [facility] ([facility]) ALT/SGPT 45 U/L 12-78 normal ALT/SGPT [facility] ([facility]) bilirubin,total 0.4 mg/dL 0.2-1.0 normal Bilirubin,total [facility] ([facility]) alkaline phosphatase 131 U/L 45-117 Above high normal Alkaline Phosphatase [facility] ([facility]) AST/SGOT 20 U/L 7-37 normal AST/SGOT [facility] ([facility]) albumin/globulin ratio 1.2-2.2 normal Albumin/globu franki Ratio [facility] ([facility]) albumin 4.0 gm/dL 3.2-5.2 normal Albumin [facility] ([facility]) total protein 7.3 gm/dL 6.4-8.2 normal Total Protein [facility] ( [facility]) ID Date Data Source [id number] 05/18/2020 10:30:00 AM EST [facility] ([facility]) Name Value Range Interpretation Code Description Data Shereen rce(s) Supporting Document(s) white blood count 8.7 10 4.0-10.0 normal White Blood Count [facility] ([facility]) hemoglobin 13.9 g/dL 12.0-15.5 normal Hemoglobin [facility] ([facility]) red blood count 4.80 10 4.00-5.40 normal Red Blood Count [facility] ([facility]) mean corpuscular volume 85.8 fL 80.0-96.0 normal Mean Corpusc ular Volume [facility] ([facility]) mean corpuscular hemoglobin 29.0 pg 27.0-33.0 normal Mean Corpuscular Hemoglobin [facility] ([facility]) hematocrit 41.2 % 36.0-47.0 normal Hematocrit [facility] ([facility]) mean corpuscular HGB conc 33.7 g/dL 32.0-36.5 normal Mean Corpu scular HGB Conc [facility] ([facility]) platelet count, automated 271 10 150-450 normal Platelet C ount, Automated [facility] ([facility]) red cell distribution width 12.0 % 11.5-14.5 normal Red Cell Distribution Width [facility] ([facility]) lymph % 26.0 % 24.0-44.0 normal Lymph % [facility] ([facility]) neutrophils % 65.9 % 36.0-66.0 normal Neutrophils % [facility] ( [facility]) mono % 6.8 % 0.0-5.0 Above high normal [place] % [facility] ([facility]) baso % 0.3 % 0.0-1.0 normal Baso % [facility] ([facility]) immature granulocyte % 0.2 % 0-3.0 normal Immature Gran ulocyte % [facility] ([facility]) eos % 0.8 % 0.0-3.0 normal Eos % [facility] ([facility]) nucleated red blood cell % 0.0 % 0-0 normal Nucleated Red Blood Cell % [facility] ([facility]) neutrophils # 5.8 10 1.5-8.5 normal Neutrophils # [facility] ( [facility]) lymph # 2.3 10 1.5-5.0 normal Lymph # [facility] ([facility]) mono # 0.6 10 0.0-0.8 normal [place] # [facility] ([facility]) eos # 0.1 10 0.0-0.5 normal Eos # [facility] ([facility]) baso # 0.0 10 0.0-0.2 normal Baso # [facility] ([facility]) ID Date Data Source [id number] 05/18/2020 10:30:00 AM EST [facility] ([facility]) Name Value Range Interpretation Code Description Data Shereen rce(s) Supporting Document(s) Hemoglobin A1c/Hemoglobin.total in Blood 5.7 % normal Hemoglobin a1C [facility] ([facility]) estimated average glucose 117 mg/dL 60-110 Above high norm al Estimated Average Glucose [place] ([facility]) ID Date Data Source [id number] 05/18/2020 10:30:00 AM EST [facility] ([facility]) Name Value Range Interpretation Code Description Data Shereen rce(s) Supporting Document(s) total 25(oh) vitamin D 15.3 NG/mL 30.0-100.0 Below low normal T otal 25(Oh) Vitamin D [place] ([facility]) ID Date Data Source [id number] 05/18/2020 10:30:00 AM EST [facility] ([facility]) Name Value Range Interpretation Code Description Data Shereen rce(s) Supporting Document(s) thyroid stimulating hormone 4.240 uIU/mL 0.358-3.740 Above high no rmal Thyroid Stimulating Hormone [facility] ([facility]) free T4 1.27 NG/dL 0.76-1.46 normal Free T4 [facility] ([facility]) ID Date Data Source [id number] 05/18/2020 10:30:00 AM EST [facility] ([facility]) Name Value Range Interpretation Code Description Data Shereen rce(s) Supporting Document(s) HDL cholesterol 50 mg/dL >40 normal HDL Cholesterol [facility] ([facility]) cholesterol level 213 mg/dL <200 Above high normal Cholesterol Level [facility] ([facility]) triglycerides level 165 mg/dL <150 Above high normal Triglycer ides Level [facility] ([facility]) non-HDL-C 163 mg/dL normal Non-hdl-c [facility] ([facility]) Cholesterol in LDL [Mass/volume] in Serum or Plasma 130 mg/dL <100 Above high normal LDL Cholesterol [facility] ([facility]) cholesterol risk ratio <5 normal Cholesterol R isk Ratio [facility] ([facility]) ID Date Data Source [id number] 05/18/2020 10:30:00 AM EST [facility] ([facility]) Name Value Range Interpretation Code Description Data Shereen rce(s) Supporting Document(s) blood urea nitrogen 20 mg/dL 7-18 Above high normal Blood Ure a Nitrogen [facility] ([facility]) creatinine for GFR 0.78 mg/dL 0.55-1.30 normal Creatinine for GF R [facility] ([facility]) glomerular filtration rate > 60.0 >60 normal Glomerula r Filtration Rate [facility] ([facility]) glucose, fasting 109 mg/dL 70-100 Above high normal Glucose, Fas ting [facility] ([facility]) potassium serum 3.6 mEq/L 3.5-5.1 normal Potassium Serum [facility] ([facility]) carbon dioxide level 27 mEq/L 21-32 normal Carbon Dioxide Level [facility] ([facility]) sodium level 142 mEq/L 136-145 normal Sodium Level [facility] ([facility]) chloride level 112 mEq/L 98-107 Above high normal Chloride Level [facility] ([facility]) anion gap 3 mEq/L 8-16 Below low normal Anion Gap [facility] ( [facility]) ALT/SGPT 45 U/L 12-78 normal ALT/SGPT [facility] ([facility]) AST/SGOT 20 U/L 7-37 normal AST/SGOT [facility] ([facility]) calcium level 8.9 mg/dL 8.5-10.1 normal Calcium Level [facility] ( [facility]) bilirubin,total 0.4 mg/dL 0.2-1.0 normal Bilirubin,total [facility] ([facility]) total protein 7.3 gm/dL 6.4-8.2 normal Total Protein [facility] ( [facility]) alkaline phosphatase 131 U/L 45-117 Above high normal Alkaline Phosphatase [facility] ([facility]) albumin 4.0 gm/dL 3.2-5.2 normal Albumin [facility] ([facility]) albumin/globulin ratio 1.2-2.2 normal Albumin/globu franki Ratio [facility] ([facility]) ID Date Data Source [id number] 05/18/2020 10:30:00 AM EST [place] ([facility]) Name Value Range Interpretation Code Description Data Shereen rce(s) Supporting Document(s) white blood count 8.7 10 4.0-10.0 normal White Blood Count [facility] ([facility]) hemoglobin 13.9 g/dL 12.0-15.5 normal Hemoglobin [facility] ([facility]) red blood count 4.80 10 4.00-5.40 normal Red Blood Count [facility] ([facility]) mean corpuscular HGB conc 33.7 g/dL 32.0-36.5 normal Mean Corpu scular HGB Conc [facility] ([facility]) mean corpuscular hemoglobin 29.0 pg 27.0-33.0 normal Mean Corpuscular Hemoglobin [facility] ([facility]) hematocrit 41.2 % 36.0-47.0 normal Hematocrit [facility] ([facility]) mean corpuscular volume 85.8 fL 80.0-96.0 normal Mean Corpusc ular Volume [facility] ([facility]) red cell distribution width 12.0 % 11.5-14.5 normal Red Cell Distribution Width [facility] ([facility]) platelet count, automated 271 10 150-450 normal Platelet C ount, Automated [facility] ([facility]) neutrophils % 65.9 % 36.0-66.0 normal Neutrophils % [facility] ( [facility]) lymph % 26.0 % 24.0-44.0 normal Lymph % [facility] ([facility]) mono % 6.8 % 0.0-5.0 Above high normal [place] % [facility] ([facility]) eos % 0.8 % 0.0-3.0 normal Eos % [place] ([facility]) baso % 0.3 % 0.0-1.0 normal Baso % [place] ([facility]) immature granulocyte % 0.2 % 0-3.0 normal Immature Gran ulocyte % [place] ([facility]) nucleated red blood cell % 0.0 % 0-0 normal Nucleated Red Blood Cell % [place] ([facility]) eos # 0.1 10 0.0-0.5 normal Eos # [place] ([facility]) lymph # 2.3 10 1.5-5.0 normal Lymph # [place] ([facility]) mono # 0.6 10 0.0-0.8 normal [place] # [place] ([facility]) neutrophils # 5.8 10 1.5-8.5 normal Neutrophils # [place] ( [facility]) baso # 0.0 10 0.0-0.2 normal Baso # [place] ([facility]) ID Date Data Source [id number] 12/17/2019 10:19:04 AM EDT [facility] Labs In-House Blood TestsDate/Time Colle cted: December 17, 2019 8:55 AMTest Result Reference Range Normal ValueComments: blood draw done in office, taken from left ac, tolerated well.Saniya Deshpande, December 17, 2019 10:19 AMAssessment & Plan Orders:[id number] Vst-Est Level I [[id number]] [id number] - Venipuncture [[id number]] Name Value Range Interpretation Code Description Data Shereen rce(s) Supporting Document(s) ID Date Data Source [id number] 12/17/2019 08:55:00 AM EDT [facility] Name Value Range Interpretation Code Description Data Shereen rce(s) Supporting Document(s) BG FASTING 94 mg/dL 70-100 N [facility] ID Date Data Source [id number] 12/17/2019 08:55:00 AM EDT [facility] Name Value Range Interpretation Code Description Data Shereen rce(s) Supporting Document(s) HGBA1C 5.7 % N [facility] ID Date Data Source [id number] 12/17/2019 08:55:00 AM EDT [facility] Name Value Range Interpretation Code Description Data Shereen rce(s) Supporting Document(s) HCT 39.1 % 36.0-47.0 N [facility] HGB 13.1 g/dL 12.0-15.5 N [facility] MCH 33.5 G/DL pg 32.0-36.5 [facility] MCHC 29.3 PG % 27.0-33.0 [facility] PLATELETS 275 10 10*3/mm3 150-450 N [facility] RBC 4.47 10 10*6/mm3 4.00-5.40 [facility] RDW 12.8 % 11.5-14.5 [facility] WBC TOTAL 7.0 4.0-10.0 N [facility] ID Date Data Source [id number] 12/16/2019 02:20:52 PM EDT [facility] Measurements & CalculationsHeight: 67 inches [...] barriers: nonePatient's Language used in visit: YesLanguage: [place] Pain AssessmentPain ScaleNumeric Rating Scale: 9 / [...] during this visit, including review of any skkt-qfr-pgmqgsd medications, herbal therapies, and/or supplements.Allergy ReviewAllergy List [...] for malignant neoplasms of the cervix (ICD-V76.2) (FIB83-U57.4) Assessment: Instructions: You have had your Pap smear with HPV testing done today. We should receive your result in 7- 10 days. we will contact you if results are concerning.Bacterial vaginosis (ICD- 041.9) (BQW38-G54.0) Assessment: moderate amount of vaginal discharge , mid odor. will treat for BV Instructions: We have sent a prescription to your pharmacy today. Please take medication as prescribed. please report any major side effects. Please avoid alcohol use while taking this medication. Please try to maintain adequate intake of water daily.Assessed:Health Screening (ICD-V70.0) (UDF08-U81.9) Assessment: Instructions: STD/ screening done today.Pain in right hip joint (AJA92-H60.551) Assessment: Instructions: We have sent a prescription [...] ORAL MELOXICAM 7.5 MG ORAL TABLET Qty: [id number] Refills: 30[Tablet] To: MELOXICAM 15 MG ORAL TABLET-take one tablet by mouth daily Qty: 30[Tablet] Refills: 2Allergies:* PENICILLIN (Critical)Orders:Human Papillomavirus (HPV), high-risk types [CPT- 34140] Pap Smear [CPT-28025] Gonorrhea Culture [CPT-45240] Chlamydia Culture [CPT-97187] Preventive, Est, (18-39) [CPT-32226] Follow-Up Return to clinic: as sceduled as needed Clinical Visit Summary Completed Name Value Range Interpretation Code Description Data Shereen rce(s) Supporting Document(s) ID Date Data Source [id number] 11/10/2019 10:02:55 AM EDT [facility] Measurements & CalculationsHeight: 67 inches [...] during this visit, including review of any sasl-jvu-jvivded medications, herbal therapies, and/or supplements.Allergy ReviewAllergy List [...] is? FairAssessment & Plan Problems:Added: Cough (ICD-786.2) (TTD21-L54) Assessment: Instructions: For more than one week [...] (Critical)Orders:Adult - Ofc Vst, EST, Level III [CPT-82641] Medications:DOXYCYCLINE HYCLATE 100 MG ORAL TABLET (DOXYCYCLINE HYCLATE) One po bid for 7 days #14[Tablet] x 0 Route:ORAL Entered and Authorized by: Vitor Fuentes MD Method used: Electronically to [facility] (retail) [address] [place] [address] Note to Pharmacy: Route: ORAL; RxID: [id number] signed by Vitor Fuentes MD on 11/10/2019 at 10:42 AM Name Value Range Interpretation Code Description Data Shereen rce(s) Supporting Document(s) ID Date Data Source [id number] 10/15/2019 02:13:13 PM EDT [facility] Measurements & CalculationsHeight: 67 inches [...] done. 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 this could interact with other prescribed medications. This is also still an illicit substance in the state [facility].Assessed:Nicotine dependence, unspecified, uncomplicated (HAR51-N14.200) Assessment: Instructions: We have refilled Chantix for you today. Please report any major side effects.Anxiety depression (ICD-300.4) (UAS34-H40.8) Assessment: Instructions: We have increased the dose of your Wellbutrin today. Please take medication as prescribed. Please report any major side effects. We have made a referral [facility]. Your Appointment To Telepsych is scheduled for 11/23/2019, with Dr Tionco. We will contact you to set up referral with .Health Screening (ICD-V70.0) (ICD10- Z13.9) Assessment: Instructions: Fasting labs ordered for you today.Patient Instructions/Care Plan: Cannabis use- unspecified- uncomplicated: Please try to avoid the use of marijuana . this could interact with other prescribed medications. This is also still an illicit substance in the state [facility].Nicotine dependence- unspecified- uncomplicated: We have refilled Chantix for you today. Please report any major side effects.Anxiety depression: We have increased the dose of your Wellbutrin today. Please take medication as prescribed. Please report any major side effects. We have made a referral to and [facility] for you today. Your Appointment [...] ORAL TABLET EXTENDED RELEASE 24 HOUR Qty: [id number] Refills: 30[Tablet] To: WELLBUTRIN XL 300 MG ORAL TABLET EXTENDED RELEASE 24 HOUR-take one tablet by mouth daily Qty: 30[Tablet] Refills: 1Allergies:* PENICILLIN (Critical)Orders:Mental Health Consult [CPT-63588] Telepsychiatry Consult [CPT-56363] COMP METABOLIC PANEL [CPT-07488] CBC W/DIFF [CPT-44552] HgBA1c [CPT-50594] LIPID PANEL [CPT-43280] Adult - Ofc Vst, EST, Level IV [CPT-63069] Follow-Up Return to clinic: as scheduled and as needed Clinical Visit Summary CompletedMedications:MELOXICAM 7.5 MG ORAL TABLET ( MELOXICAM) take one tablet by mouth daily #30[Tablet] x 1 Route:ORAL Entered and Authorized by: Carolynn ABBASI Method used: Electronically to [facility] (retail) [address] [place] [address] Fax: Note to Pharmacy: Route: ORAL; Indications: PAIN IN RIGHT HIP JOINT RxID: [id number] CONTINUING MONTH BRADLEY 1 MG ORAL TABLET (VARENICLINE TARTRATE) take medication as directed #1[Package] x 1 Route:ORAL Entered and Authorized by: Carolynn ABBASI Method used: Electronically to [facility] (retail) [address] [place] [address] Note to Pharmacy: Route: ORAL; Indications: NICOTINE DEPENDENCE, UNSPECIFIED, UNCOMPLICATED RxID: [id number] XL 300 MG ORAL TABLET EXTENDED RELEASE 24 HOUR (BUPROPION HCL) take one tablet by mouth daily #30[Tablet] x 1 Route:ORAL Entered and Authorized by: Carolynn ABBASI Method used: Electronically to [facility] (retail) [address] [place] [address] Fax: Note to Pharmacy: Route: ORAL; Indications: ANXIETY DEPRESSION RxID: [id number] ZITHROMAX 250 MG ORAL TABLET (AZITHROMYCIN) take two tablet by mouth on day one then one tablet by mouth daily x 4 days #6[Tablet] x 0 Route:ORAL Entered by: Meron Newton LPN Authorized by: Carolynn ABBASI Method used: Electronically to [facility] (retail) [address] [place] [address] RxID: [id number] signed by Carolynn ABBASI on 10/23/2019 at 2:45 PM Name Value Range Interpretation Code Description Data Shereen rce(s) Supporting Document(s) ID Date Data Source [id number] 08/12/2019 12:00:00 AM EST [facility] Sergio Casarez MD Patient Name: [facility] Date of : [facility] Date of Exam: 08/12/2019ALISTAIR Lazaro [id number]#: Fax: [phone] EXAM: MRI HIP RIGHT WITHOUT [...] rce(s) Supporting Document(s) ID Date Data Source [id number] 07/07/2019 11:29:26 AM EST [facility] Labs In-House Blood TestsDate/Time Colle cted: July 07, 2019 11:31 AMTest Result Reference Range Normal ValueComments: blood draw done in office done in the right ac tolerated well Christian Sen SAMIRA, July 07, 2019 11:31 AMAssessment & Plan Orders:[id number] Vst-Est Level I [CPT-54549] 32808 - Venipuncture [CPT-09848] Name Value Range Interpretation Code Description Data Shereen rce(s) Supporting Document(s) ID Date Data Source [id number] 07/07/2019 11:20:00 AM EST [facility] Name Value Range Interpretation Code Description Data Shereen rce(s) Supporting Document(s) HCT 40.5 % 36.0-47.0 N [facility] HGB 13.7 g/dL 12.0-15.5 N [facility] MCH 33.8 G/DL pg 32.0-36.5 N [facility] MCHC 29.3 PG % 27.0-33.0 [facility] PLATELETS 310 10 10*3/mm3 150-450 N [facility] RBC 4.68 10 10*6/mm3 4.00-5.40 N [facility] RDW 11.9 % 11.5-14.5 [facility] WBC TOTAL 7.0 4.0-10.0 N [facility] ID Date Data Source [id number] 07/07/2019 11:20:00 AM EST [facility] Name Value Range Interpretation Code Description Data Shereen rce(s) Supporting Document(s) VIT D25 TOT 23.4 ng/mL 30.0-100.0 L [facility] BG FASTING 103 mg/dL 70-100 H [facility] ID Date Data Source [id number] 07/07/2019 11:20:00 AM [facility] Name Value Range Interpretation Code Description Data Shereen rce(s) Supporting Document(s) HGBA1C 5.5 % N [facility] ID Date Data Source [id number] 06/30/2019 05:21:36 PM [facility] Measurements & CalculationsHeight: 67 inches (5 [...] during this visit, including review of any hjou-umh-hpgqjkv medications, herbal therapies, and/or supplements.Allergy ReviewAllergy List was reviewed and/or updated during this visit.Adult Preventive CareProvider Calculated and Reviewed all Clinical Protocols for patient today. 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 We will contact you to set this up.May continue heat or cold therapy as needed. We have sent a prescription for meloxicam. Please take this medication as prescribed. Please report any major side effects.Dyspnea on exertion (ICD-786.09) (VLO15-P50.09) Assessment: pt staes still intermittent SOB on exertion. pt states albuterol not working enough.requesting change. Instructions: We have changed albuterol to Proair . Please use as prescribed. Please report any major side effects.Assessed:upper respiratory infection (ICD-465.9) (OSU18-B85.9) Assessment: Instructions: We have sent a prescription to your pharmacy today. Please take medication as prescribed. Please report any major side effects. Please try to maintain good nutrition and adequate hydration.Nicotine dependence, unspecified, uncomplicated (DXV00-K81.200) Assessment: Pt states down to 1-2 cigarettes [...] (90 BASE) MCG/ACT INHALATION AEROSOL SOLUTION Qty: [id number] Refills: 1[Inhaler] To: PROAIR DIGIHALER 108 MCG/ACT INHALATION AEROSOL POWDER BREATH ACTIVATED-one inhalation by mouth 3-4 times daily as needed Qty: 1[Inhaler] Refills: 2Allergies:* PENICILLIN (Critical) Orders:Orthopaedics Consult [CPT-91015] Adult - Ofc Vst, EST, Level IV [CPT- 41687] Follow-Up Return to clinic: as scheduled and as needed Clinical Visit Summary CompletedMedications:PROAIR DIGIHALER 108 MCG/ACT INHALATION AEROSOL POWDER BREATH ACTIVATED (ALBUTEROL SULFATE) one inhalation by mouth 3-4 times daily as needed #1[Inhaler] x 2 Route:INHALATION Entered and Authorized by: Carolynn ABBASI Method used: Electronically to [facility] (ugspxj) [address] [place] [address] Note to Pharmacy: Route: INHALATION; Indications: DYSPNEA ON EXERTION RxID: [id number] 7.5 MG ORAL TABLET (MELOXICAM) take one tablet by mouth daily #30[Tablet] x 1 Route:ORAL Entered and Authorized by: Carolynn ABBASI Method used: Electronically to [facility] (retail) [address] [place] [address] Note to Pharmacy: Route: ORAL; Indications: PAIN IN RIGHT HIP JOINT RxID: [id number] CONTINUING MONTH BRADLEY 1 MG ORAL TABLET (VARENICLINE TARTRATE) take medication as directed #1[Tablet] x 1 Route:ORAL Entered and Authorized by: Carolynn ABBASI Method used: Electronically to [facility] (retail) [address] [place] [address] Fax: Note to Pharmacy: Route: ORAL; Indications: NICOTINE DEPENDENCE, UNSPECIFIED, UNCOMPLICATED RxID: [id number] XL 150 MG ORAL TABLET EXTENDED RELEASE 24 HOUR (BUPROPION HCL) take one tablet by mouth daily #30[Tablet] x 1 Route:ORAL Entered and Authorized by: Carolynn ABBASI Method used: Electronically to [facility] (retail) [address] [place] [address] Ph: Note to Pharmacy: Route: ORAL; Indications: ANXIETY DEPRESSION RxID: [id number] 250 MG ORAL TABLET (AZITHROMYCIN) take two tablet by mouth on day one then one tablet by mouth daily x 4 days #6[Tablet] x 0 Route:ORAL Entered and Authorized by: Carolynn ABBASI Method used: Electronically to [facility] (nfxnuj) [address] [place] [address] Note to Pharmacy: Route: ORAL; Indications: UPPER RESPIRATORY INFECTION RxID: [id number] signed by Carolynn ABBASI on 07/01/2019 at 5:21 AM Name Value Range Interpretation Code Description Data Shereen rce(s) Supporting Document(s) ID Date Data Source [id number] 05/18/2019 05:06:52 PM [facility] Measurements & CalculationsHeight: 67 inches (5 [...] and dep.Pt states not feeling as if [employer] is working. Pt states having more anger [...] during this visit, including review of any rjcn-ant-gbzzmun medications, herbal therapies, and/or supplements.Allergy ReviewAllergy List was reviewed and/or updated during this visit.Adult Preventive CareProvider Calculated and Reviewed all Clinical Protocols for patient today. 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 Please try to maintain adequate fluid intake to include 6-8 glasses of water daily. Please try to maintain adequate rest.Paresthesia of upper limb (ICD-782.0) (ECM74-L43.2) Assessment: Instructions: We have ordered labs for you today. Please try to maintain adequate fluid intake to include 6-8 glasses of water daily. Please try to maintain adequate rest.Assessed:Prediabetes (RNB27-P61.03) Assessment: Instructions: Please continue lifestyle changes to include healthy diet and physical activities. Please try to limit sugars and carbohydrates in your diet. Please try to maintain adequate fluid intake to include 6-8 glasses of water daily.Health Screening (ICD-V70.0) (LHA06-W08.9) Assessment: Instructions: We have ordered labs for you today. We will contact you with abnormal results.Anxiety depression (ICD-300.4) (OWH67-P36.8) Assessment: Instructions: Please stop taking Prozac and start taking Wellbutrin. Please take medication as prescribed. Please report any major side effects.Nicotine dependence, unspecified, uncomplicated (TFE89-L24.200) Assessment: Instructions: Please continue your progress to smoking cessation. Please let us know if you need additional assistance.Health Screening (ICD-V70.0) (ICD10- Z13.9) Assessment: Instructions: We have ordered labs for you today. Please fasat for 8-10 hours prior. We will contact you with abnormal results.Assessment not Saved Paresthesia of lower extremity (UHF12-L35.2): Patient Instructions/Care Plan: Prediabetes: Please continue lifestyle [...] ORAL PROZAC 10 MG ORAL CAPSULE Qty: [id number] Refills: 30[Tablet] To: WELLBUTRIN SR 150 MG ORAL TABLET EXTENDED RELEASE 12 HOUR-take one tablet by mouth daily Qty: 30[Tablet] Refills: 1From: ORAL WELLBUTRIN SR 150 MG ORAL TABLET EXTENDED RELEASE 12 HOUR Qty: [id number] Refills: 30[Tablet] To: WELLBUTRIN XL 150 MG ORAL TABLET EXTENDED RELEASE 24 HOUR-take one tablet by mouth daily Qty: 30[Tablet] Refills: 1Allergies:* PENICILLIN (Critical)Orders:COMP METABOLIC PANEL [CPT-46622] CBC W/DIFF [CPT- 95539] HgBA1c [CPT-33895] LIPID PANEL [CPT-57710] Vitamin D 250H Unspecified [CPT-43072] VITAMIN B-12 [CPT-06715] Folate (Folic Acid Serum) [CPT-20197] Adult - Ofc Vst, EST, Level IV [CPT-43612] Follow-Up Return to clinic: 4-6 weeks for assistance Clinical Visit Summary CompletedMedications:WELLBUTRIN XL 150 MG ORAL TABLET EXTENDED RELEASE 24 HOUR (BUPROPION HCL) take one tablet by mouth daily #30[Tablet] x 1 Route:ORAL Entered and Authorized by: Carolynn ABBASI Method used: Electronically to [facility] (retail) [address] [place] [address] Ph: [phone] Note to Pharmacy: Route: ORAL; Indications: ANXIETY DEPRESSION RxID: [id number] SR 150 MG ORAL TABLET EXTENDED RELEASE 12 HOUR (BUPROPION HCL) take one tablet by mouth daily #30[Tablet] x 1 Route:ORAL Entered and Authorized by: Carolynn ABBASI Method used: Electronically to [facility] (agxepn) [address] [place] [address] Note to Pharmacy: Route: ORAL; Indications: ANXIETY DEPRESSION RxID: [id number] si gned by Carolynn ABBASI on 05/20/2019 at 12:38 AM Name Value Range Interpretation Code Description Data Shereen rce(s) Supporting Document(s) Procedure Vital Signs ID Date Data Source UNK Name Value Range Interpretation Code Description Data Source(s) Body height 67 [in_i] 67 [in_i] PIERCE ([facility]) Body weight 3139.2 [oz_av] 3139.2 [oz_av] ATH A ([facility]) Body mass index (BMI) [Ratio] 30.7 kg/m2 30.7 k g/m2 PIERCE ([facility]) Body height 67 [in_i] 67 [in_i] PIERCE ([facility]) Body weight 3139.2 [oz_av] 3139.2 [oz_av] ATH A ([facility]) Body mass index (BMI) [Ratio] 30.7 kg/m2 30.7 k g/m2 PIERCE ([facility]) Body height 67 [in_i] 67 [in_i] [facility]ERCE ([facility]) Systolic blood pressure 112 mm[Hg] 112 mm[Hg] [facility] Body mass index (BMI) [Ratio] 31.2 kg/m2 31.2 k g/m2 PIERCE ([facility]) Body height 67 [in_i] 67 [in_i] PIERCE ([facility]) Diastolic blood pressure 70 mm[Hg] 70 mm[Hg] PIERCE ([facility]) Body weight 3187.2 [oz_av] 3187.2 [oz_av] ATHEN A ([facility]) Systolic blood pressure 112 mm[Hg] 112 mm[Hg] A THENA ([facility]) Body mass index (BMI) [Ratio] 31.2 kg/m2 31.2 k g/m2 PIERCE ([facility]) Body height 67 [in_i] 67 [in_i] PIERCE ([facility]) Diastolic blood pressure 70 mm[Hg] 70 mm[Hg] PIERCE ([facility]) Body weight 3187.2 [oz_av] 3187.2 [oz_av] ATHEN A ([facility]) Systolic blood pressure 112 mm[Hg] 112 mm[Hg] A THENA ([facility]) Body mass index (BMI) [Ratio] 31.2 kg/m2 31.2 k g/m2 PIERCE ([facility]) Body height 67 [in_i] 67 [in_i] PIERCE ([facility]) Diastolic blood pressure 70 mm[Hg] 70 mm[Hg] PIERCE ([facility]) Body weight 3187.2 [oz_av] 3187.2 [oz_av] ATHEN A ([facility]) Systolic blood pressure 112 mm[Hg] 112 mm[Hg] A THENA ([facility]) Body mass index (BMI) [Ratio] 31.2 kg/m2 31.2 k g/m2 PIERCE ([facility]) Body height 67 [in_i] 67 [in_i] PIERCE ([facility]) Diastolic blood pressure 70 mm[Hg] 70 mm[Hg] PIERCE ([facility]) Body weight 3187.2 [oz_av] 3187.2 [oz_av] ATHEN A ([facility]) Body weight 3218.08 [oz_av] 3218.08 [oz_av] ATH ZANDRA ([facility]) Body height 67 [in_i] 67 [in_i] PIERCE ([facility]) Body weight 3218.08 [oz_av] 3218.08 [oz_av] ATH ZANDRA ([facility]) Body height 67 [in_i] 67 [in_i] PIERCE ([facility]) Body weight 3218.08 [oz_av] 3218.08 [oz_av] ATH ZANDRA ([facility]) Body height 67 [in_i] 67 [in_i] PIERCE ([facility]) Body weight 3218.08 [oz_av] 3218.08 [oz_av] ATH ZANDRA ([facility]) Body height 67 [in_i] 67 [in_i] PIERCE ([facility]) Body weight 3170.08 [oz_av] 3170.08 [oz_av] ATH ZANDRA ([facility]) Body height 67 [in_i] 67 [in_i] PIERCE ([facility]) Body weight 3170.08 [oz_av] 3170.08 [oz_av] ATH ZANDRA ([facility]) Body height 67 [in_i] 67 [in_i] PIERCE ([facility]) Body weight 3170.08 [oz_av] 3170.08 [oz_av] ATH ZANDRA ([facility]) Body height 67 [in_i] 67 [in_i] PIERCE ([facility]) Body weight 3170.08 [oz_av] 3170.08 [oz_av] ATH ZANDRA ([facility]) Body height 67 [in_i] 67 [in_i] PIERCE ([facility]) Body weight 3155.04 [oz_av] 3155.04 [oz_av] ATH ZANDRA ([facility]) Systolic blood pressure 118 mm[Hg] 118 mm[Hg] A THENA ([facility]) Body height 67 [in_i] 67 [in_i] PIERCE ([facility]) Diastolic blood pressure 76 mm[Hg] 76 mm[Hg] PIERCE ([facility]) Body weight 3155.04 [oz_av] 3155.04 [oz_av] ATH ZANDRA ([facility]) Systolic blood pressure 118 mm[Hg] 118 mm[Hg] A THENA ([facility]) Body height 67 [in_i] 67 [in_i] PIERCE ([facility]) Diastolic blood pressure 76 mm[Hg] 76 mm[Hg] PIERCE ([facility]) Body weight 3155.04 [oz_av] 3155.04 [oz_av] ATH ZANDRA ([facility]) Systolic blood pressure 118 mm[Hg] 118 mm[Hg] A THENA ([facility]) Body height 67 [in_i] 67 [in_i] PIERCE ([facility]) Diastolic blood pressure 76 mm[Hg] 76 mm[Hg] PIERCE ([facility]) Body weight 3155.04 [oz_av] 3155.04 [oz_av] ATH ZANDRA ([facility]) Systolic blood pressure 118 mm[Hg] 118 mm[Hg] A THENA ([facility]) Body height 67 [in_i] 67 [in_i] PIERCE ([facility]) Diastolic blood pressure 76 mm[Hg] 76 mm[Hg] PIERCE ([facility]) Body weight 3234.08 [oz_av] 3234.08 [oz_av] ATH ZANDRA ([facility]) Body height 67 [in_i] 67 [in_i] PIERCE ([facility]) Body weight 3234.08 [oz_av] 3234.08 [oz_av] ATH ZANDRA ([facility]) Body height 67 [in_i] 67 [in_i] PIERCE ([facility]) Body weight 3234.08 [oz_av] 3234.08 [oz_av] ATH ZANDRA ([facility]) Body height 67 [in_i] 67 [in_i] PIERCE ([facility]) Body weight 3234.08 [oz_av] 3234.08 [oz_av] ATH ZANDRA ([facility]) Body height 67 [in_i] 67 [in_i] PIERCE ([facility]) Body weight 3120 [oz_av] 3120 [oz_av] PIERCE ([facility]) Systolic blood pressure 131 mm[Hg] 131 mm[Hg] [facility] Body height 67 [in_i] 67 [in_i] [facility] [facility]) Diastolic blood pressure 86 mm[Hg] 86 mm[Hg] [facility] ([facility]) Body weight 3120 [oz_av] 3120 [oz_av] [facility] ([facility]) Systolic blood pressure 131 mm[Hg] 131 mm[Hg] A [facility] ([facility]) Body height 67 [in_i] 67 [in_i] [facility] ([facility]) Diastolic blood pressure 86 mm[Hg] 86 mm[Hg] [facility] ([facility]) Body weight 3120 [oz_av] 3120 [oz_av] [facility] ([facility]) Systolic blood pressure 131 mm[Hg] 131 mm[Hg] [facility] Body height 67 [in_i] 67 [in_i] [facility] ([facility]) Diastolic blood pressure 86 mm[Hg] 86 mm[Hg] [facility] ([facility]) Body weight 3120 [oz_av] 3120 [oz_av] [facility] ([facility]) Systolic blood pressure 131 mm[Hg] 131 mm[Hg] [facility] Body height 67 [in_i] 67 [in_i] [facility] ([facility]) Diastolic blood pressure 86 mm[Hg] 86 mm[Hg] [facility] ([facility]) Body weight 3126.08 [oz_av] 3126.08 [oz_av] [facility] ([facility]) Systolic blood pressure 114 mm[Hg] 114 mm[Hg] [facility] Body height 67 [in_i] 67 [in_i] [facility] ([facility]) Diastolic blood pressure 77 mm[Hg] 77 mm[Hg] [facility] ([facility]) Body weight 3126.08 [oz_av] 3126.08 [oz_av] [facility] ([facility]) Systolic blood pressure 114 mm[Hg] 114 mm[Hg] [facility] Body height 67 [in_i] 67 [in_i] [facility] ([facility]) Diastolic blood pressure 77 mm[Hg] 77 mm[Hg] [facility] ([facility]) Systolic blood pressure 114 mm[Hg] 114 mm[Hg] [facility] Body height 67 [in_i] 67 [in_i] [facility] ([facility]) Diastolic blood pressure 77 mm[Hg] 77 mm[Hg] [facility] ([facility]) Body weight 3126.08 [oz_av] 3126.08 [oz_av] [facility] ([facility]) Systolic blood pressure 114 mm[Hg] 114 mm[Hg] [facility] Body height 67 [in_i] 67 [in_i] [facility] ([facility]) Diastolic blood pressure 77 mm[Hg] 77 mm[Hg] [facility] ([facility]) Body weight 3126.08 [oz_av] 3126.08 [oz_av] A[facility] ([facility]) Body mass index (BMI) [Ratio] 33.0 kg/m2 33.0 k g/m2 [facility] ([facility]) Body weight 204.38 [lb_av] 204.38 [lb_av] MEDEN T ([facility]) Body height 66 [in_i] 66 [in_i] [facility] ([facility]) 5'6" Body temperature 97.1 [degF] 97.1 [degF] [facility] ([facility]) Body weight 3232 [oz_av] 3232 [oz_av] [facility] ([facility]) Systolic blood pressure 115 mm[Hg] 115 mm[Hg] A [facility] ([facility]) Body height 67 [in_i] 67 [in_i] [facility] ([facility]) Diastolic blood pressure 77 mm[Hg] 77 mm[Hg] [facility] ([facility]) Body weight 3232 [oz_av] 3232 [oz_av] [facility] ([facility]) Systolic blood pressure 115 mm[Hg] 115 mm[Hg] [facility] Body height 67 [in_i] 67 [in_i] [facility] ([facility]) Diastolic blood pressure 77 mm[Hg] 77 mm[Hg] [facility] ([facility]) Body weight 3232 [oz_av] 3232 [oz_av] [facility] ([facility]) Systolic blood pressure 115 mm[Hg] 115 mm[Hg] [facility] Body height 67 [in_i] 67 [in_i] [facility] ([facility]) Diastolic blood pressure 77 mm[Hg] 77 mm[Hg] [facility] ([facility]) Body weight 3232 [oz_av] 3232 [oz_av] [facility] ([facility]) Systolic blood pressure 115 mm[Hg] 115 mm[Hg] [facility] Body height 67 [in_i] 67 [in_i] [facility] ([facility]) Diastolic blood pressure 77 mm[Hg] 77 mm[Hg] [facility] ([facility]) Body weight 3200 [oz_av] 3200 [oz_av] [facility] ([facility]) Systolic blood pressure 116 mm[Hg] 116 mm[Hg] [facility] Body height 67 [in_i] 67 [in_i] [facility] ([facility]) Diastolic blood pressure 85 mm[Hg] 85 mm[Hg] [facility] ([facility]) Body weight 3200 [oz_av] 3200 [oz_av] [facility] ([facility]) Systolic blood pressure 116 mm[Hg] 116 mm[Hg] [facility]) Body height 67 [in_i] 67 [in_i] [facility] ([facility]) Diastolic blood pressure 85 mm[Hg] 85 mm[Hg] [facility] ([facility]) Body weight 3200 [oz_av] 3200 [oz_av] [facility] ([facility]) Systolic blood pressure 116 mm[Hg] 116 mm[Hg] [facility] Body height 67 [in_i] 67 [in_i] [facility] ([facility]) Diastolic blood pressure 85 mm[Hg] 85 mm[Hg] [facility] ([facility]) Body weight 3200 [oz_av] 3200 [oz_av] [facility] ([facility]) Systolic blood pressure 116 mm[Hg] 116 mm[Hg] [facility] Body height 67 [in_i] 67 [in_i] [facility] ([facility]) Diastolic blood pressure 85 mm[Hg] 85 mm[Hg] [facility] ([facility]) Patient Treatment Plan of Care Planned Activity Planned Date Details Description Data Source (s) Prednisone 10 MG Oral Tablet [facility] ([facility]) Prazosin 1 MG Oral Capsule A [facility] ([facility]) 12 HR Guaifenesin 600 MG Extended Release Oral Tablet [facility] ([facility]) Metronidazole 500 MG Oral Tablet [facility] ([facility]) meloxicam 7.5 MG Oral Tablet [facility] ([facility]) Fluoxetine 10 MG Oral Capsule [facility] ([facility]) doxycycline hyclate 100 MG Oral Tablet [facility] ([facility]) Cyclobenzaprine hydrochloride 10 MG Oral Tablet [facility] ([facility]) 24 HR Bupropion Hydrochloride 150 MG Extended Release Oral Tablet [facility] ([facility]) Azithromycin 250 MG Oral Tablet [facility] ([facility]) Prednisone 10 MG Oral Tablet [facility] ([facility]) Prazosin 1 MG Oral Capsule A [facility] ([facility]) 12 HR Guaifenesin 600 MG Extended Release Oral Tablet [facility] ([facility]) Metronidazole 500 MG Oral Tablet [facility] ([facility]) meloxicam 7.5 MG Oral Tablet [facility] ([facility]) Fluoxetine 10 MG Oral Capsule [facility] ([facility]) doxycycline hyclate 100 MG Oral Tablet [facility] ([facility]) Cyclobenzaprine hydrochloride 10 MG Oral Tablet [facility] ([facility]) 24 HR Bupropion Hydrochloride 150 MG Extended Release Oral Tablet [facility] ([facility]) Azithromycin 250 MG Oral Tablet [facility] ([facility]) Prednisone 10 MG Oral Tablet [facility] ([facility]) Prazosin 1 MG Oral Capsule A [facility] ([facility]) 12 HR Guaifenesin 600 MG Extended Release Oral Tablet [facility] ([facility]) Metronidazole 500 MG Oral Tablet [facility] ([facility]) meloxicam 7.5 MG Oral Tablet [facility] ([facility]) Fluoxetine 10 MG Oral Capsule [facility] ([facility]) doxycycline hyclate 100 MG Oral Tablet [facility] ([facility]) Cyclobenzaprine hydrochloride 10 MG Oral Tablet [facility] ([facility]) 24 HR Bupropion Hydrochloride 150 MG Extended Release Oral Tablet [facility] ([facility]) Azithromycin 250 MG Oral Tablet [facility] ([facility]) Prednisone 10 MG Oral Tablet [facility] ([facility]) Prazosin 1 MG Oral Capsule A [facility] ([facility]) 12 HR Guaifenesin 600 MG Extended Release Oral Tablet [facility] ([facility]) Metronidazole 500 MG Oral Tablet [facility] ([facility]) meloxicam 7.5 MG Oral Tablet [facility] ([facility]) Fluoxetine 10 MG Oral Capsule [facility] ([facility]) doxycycline hyclate 100 MG Oral Tablet [facility] ([facility]) Cyclobenzaprine hydrochloride 10 MG Oral Tablet [facility] ([facility]) 24 HR Bupropion Hydrochloride 150 MG Extended Release Oral Tablet [facility] ([facility]) Azithromycin 250 MG Oral Tablet [facility] ([facility])
[2020-07-15] MEDS ORDERED: ACETAMINOPHEN 500 MG TAB PO ONE (05:15)
--- NOTE | 2020-07-15 05:26 | REPVR ---
PROCEDURE INFORMATION: Exam: CT Head Without Contrast Exam date and time: 07/15/2020 5:04 AM Age: 35 years old Clinical indication: Pain; Headache not specified; Additional info: AMS TECHNIQUE: Imaging protocol: Computed tomography of the head without contrast. Radiation optimization: All CT scans at this facility use at least one of these dose optimization techniques: automated exposure control; mA and/or kV adjustment per patient size (includes targeted exams where dose is matched to clinical indication); or iterative reconstruction. COMPARISON: No relevant prior studies available. FINDINGS: Brain: Normal. No hemorrhage. Unremarkable white matter. No mass effect. Cerebral ventricles: No ventriculomegaly. Bones/joints: Unremarkable. No acute fracture. Paranasal sinuses: Visualized sinuses are unremarkable. No fluid levels. Mastoid air cells: Visualized mastoid air cells are well aerated. Soft tissues: Unremarkable. IMPRESSION: No acute intracranial abnormality. Electronically signed by: Sergio Douglas On 07/15/2020 05:26:29 AM
--- NOTE | 2020-07-15 05:27 | REPVR ---
PROCEDURE INFORMATION: Exam: CT Cervical Spine Without Contrast Exam date and time: 07/15/2020 5:04 AM Age: 35 years old Clinical indication: Neck pain; Additional info: AMS TECHNIQUE: Imaging protocol: Computed tomography images of the cervical spine without contrast. Radiation optimization: All CT scans at this facility use at least one of these dose optimization techniques: automated exposure control; mA and/or kV adjustment per patient size (includes targeted exams where dose is matched to clinical indication); or iterative reconstruction. COMPARISON: No relevant prior studies available. FINDINGS: Bones/joints: Straightening of the normal cervical lordotic curvature. Normal vertebral body heights and alignments. No fractures. Discs/Spinal canal/Neural foramina: No significant disc protrusion. No severe spinal canal stenosis. No significant neural foraminal narrowing. Lungs: Lung apices are normal. Soft tissues: Previous facial bone reconstruction. IMPRESSION: No acute fracture/subluxation. Electronically signed by: Sergio Douglas On 07/15/2020 05:26:57 AM
[2020-07-15] MEDS ORDERED: methocarbamoL 750 MG TAB PO ONE (06:30)
[2020-07-15] MEDS ORDERED: KETOROLAC 60MG 2ML VIAL IM ONE (06:30)
--- NOTE | 2020-07-15 06:53 | REPVR ---
PROCEDURE INFORMATION: Exam: CT Lumbar Spine Without Contrast Exam date and time: 07/15/2020 6:24 AM Age: 35 years old Clinical indication: Low back pain TECHNIQUE: Imaging protocol: Computed tomography images of the lumbar spine without contrast. Radiation optimization: All CT scans at this facility use at least one of these dose optimization techniques: automated exposure control; mA and/or kV adjustment per patient size (includes targeted exams where dose is matched to clinical indication); or iterative reconstruction. COMPARISON: No relevant prior studies available. FINDINGS: Vertebrae: No acute fracture. Normal alignment. Discs/Spinal canal/Neural foramina: No significant disc protrusion. No severe spinal canal stenosis. No significant neural foraminal narrowing. Soft tissues: Unremarkable. IMPRESSION: No acute findings. Electronically signed by: Karl Martinez On 07/15/2020 06:52:53 AM
[2020-07-15] MEDS ORDERED: NS 1,000 ML IV ONE (08:30)
[2020-07-15 08:45] LABS: BASO % 0.2 % (0.0-1.0); EOS # 0.1 10^3/uL (0.0-0.5); EOS % 0.6 % (0.0-3.0); HEMATOCRIT 36.7 % (36.0-47.0); HEMOGLOBIN 12.6 g/dl (12.0-15.5); LYMPH # 1.8 10^3/uL (1.5-5.0); LYMPH % 18.1 % (24.0-44.0); MEAN CORPUSCULAR HEMOGLOBIN 29.2 pg (27.0-33.0); MEAN CORPUSCULAR HGB CONC 34.3 g/dl (32.0-36.5); MONO # 0.7 10^3/uL (0.0-0.8); MONO % 6.8 % (0.0-5.0); NEUTROPHILS # 7.3 10^3/uL (1.5-8.5); PLATELET COUNT, AUTOMATED 237 10^3/uL (150-450); RED BLOOD COUNT 4.32 10^6/uL (4.00-5.40); WHITE BLOOD COUNT 9.8 10^3/uL (4.0-10.0)
[2020-07-15 09:27] LABS: ALBUMIN 3.6 GM/DL (3.2-5.2); ALT/SGPT 30 U/L (12-78); BILIRUBIN,TOTAL 0.8 MG/DL (0.2-1.0); BLOOD UREA NITROGEN 15 MG/DL (7-18); CALCIUM LEVEL 9.2 MG/DL (8.5-10.1); CARBON DIOXIDE LEVEL 24 MEQ/L (21-32); CHLORIDE LEVEL 102 MEQ/L (98-107); CPK CREATINE PHOSPHOKINASE 395 U/L (26-192); CREATININE FOR GFR 0.65 MG/DL (0.55-1.30); GLOMERULAR FILTRATION RATE > 60.0 (>60); GLUCOSE, FASTING 101 MG/DL (70-100); POTASSIUM SERUM 3.4 MEQ/L (3.5-5.1); SODIUM LEVEL 137 MEQ/L (136-145); TOTAL PROTEIN 6.5 GM/DL (6.4-8.2)
[2020-07-15 14:40] VITALS: BP 121/73
== END 2020-07-15 14:47 | disposition home or self-care (01) ==
LOC: M ED 00:40
DX: F15.10 Other stimulant abuse, uncomplicated (principal); Z88.0 Allergy status to penicillin; F12.20 Cannabis dependence, uncomplicated; F17.210 Nicotine dependence, cigarettes, uncomplicated
CPT/HCPCS: 36415; 70450; 72125; 72131; 80053; 82550; 85025; 96372; 99284; J1885

== ENCOUNTER 2020-11-14 07:47 | Emergency (ER) | payer OTHER ==
[~2020-11-14] VITALS: Ht 167.6 cm; Wt 90.5 kg
[~2020-11-14 07:47] MED LIST changes: +ALBU8.5H; +GABA-282; +MELO15TA28; +METH20TA29; +SYSTOIN; +VITA50005
[2020-11-14] MEDS ORDERED: TRAZ-257 (07:56)
[2020-11-14] MEDS ORDERED: BUPR150T12 (07:56)
[2020-11-14] MEDS ORDERED: FLUTISP (07:56)
[2020-11-14] MEDS ORDERED: FLUO20CA22 (07:56)
[2020-11-14] MEDS ORDERED: QUET50TA3 (07:56)
[2020-11-14] MEDS ORDERED: HYDR1CAP25 (07:56)
[2020-11-14] MEDS ORDERED: RISP-8 (07:56)
[2020-11-14] MEDS ORDERED: NYST50SS PO (10:36)
[2020-11-14 11:00] VITALS: BP 124/81
== END 2020-11-14 11:02 | disposition home or self-care (01) ==
LOC: M ED 07:47
DX: B37.0 Candidal stomatitis (principal)

== ENCOUNTER 2020-11-15 22:56 | Emergency (ER) | payer OTHER ==
[~2020-11-15] VITALS: Ht 167.6 cm; Wt 88.0 kg
[~2020-11-15 22:56] MED LIST changes: +BUPR150T12; +FLUO20CA22; +FLUTISP; +HYDR1CAP25; +NYST50SS PO; +QUET50TA3; +RISP-8; +TRAZ-257
[2020-11-16 00:13] LABS: HEMATOCRIT 36.7 % (36.0-47.0); HEMOGLOBIN 12.6 g/dl (12.0-15.5); MEAN CORPUSCULAR HEMOGLOBIN 29.2 pg (27.0-33.0); MEAN CORPUSCULAR HGB CONC 34.3 g/dl (32.0-36.5); PLATELET COUNT, AUTOMATED 296 10^3/uL (150-450); RED BLOOD COUNT 4.32 10^6/uL (4.00-5.40); WHITE BLOOD COUNT 12.6 10^3/uL (4.0-10.0)
[2020-11-16 00:39] LABS: AMPHETAMINES LEVEL URINE POSITIVE (NEGATIVE); BARBITURATES URINE NEGATIVE (NEGATIVE); BENZODIAZEPINES URINE NEGATIVE (NEGATIVE); CANNABINOIDS URINE POSITIVE (NEGATIVE); COCAINE METABOLITE URINE NEGATIVE (NEGATIVE); METHADONE URINE NEGATIVE (NEGATIVE); OPIATES URINE NEGATIVE (NEGATIVE); PHENCYCLIDINE URINE NEGATIVE (NEGATIVE)
[2020-11-16 00:44] LABS: ACETAMINOPHEN LEVEL < 2.0 UG/ML (10.0-30.0); ALBUMIN 4.1 GM/DL (3.2-5.2); ALT/SGPT 86 U/L (12-78); BILIRUBIN,DIRECT 0.2 MG/DL (0.0-0.2); BILIRUBIN,TOTAL 0.6 MG/DL (0.2-1.0); BLOOD UREA NITROGEN 26 MG/DL (7-18); CALCIUM LEVEL 9.5 MG/DL (8.5-10.1); CARBON DIOXIDE LEVEL 26 MEQ/L (21-32); CHLORIDE LEVEL 106 MEQ/L (98-107); CREATININE FOR GFR 0.82 MG/DL (0.55-1.30); ETHYL ALCOHOL (ETHANOL) 0.003 % (0.000-0.010); GLOMERULAR FILTRATION RATE > 60.0 (>60); GLUCOSE, FASTING 112 MG/DL (70-100); POTASSIUM SERUM 3.1 MEQ/L (3.5-5.1); SALICYLATE LEVEL 3.8 MG/DL (5.0-30.0); SODIUM LEVEL 141 MEQ/L (136-145); THYROID STIMULATING HORMONE 0.493 uIU/ML (0.358-3.740); TOTAL PROTEIN 7.5 GM/DL (6.4-8.2)
[2020-11-16 06:24] LABS: HCG, SERUM QUALITATIVE NEGATIVE (NEGATIVE)
[2020-11-16] MEDS ORDERED: POTASSIUM CHLORIDE 10 MEQ SR TABLET PO ONE (07:20)
[2020-11-16 11:51] VITALS: BP 135/87
== END 2020-11-16 11:54 | disposition home or self-care (01) ==
LOC: M ED 22:56
DX: F15.129 Other stimulant abuse with intoxication, unspecified (principal); Z88.0 Allergy status to penicillin; Z79.899 Other long term (current) drug therapy

== ENCOUNTER → 2021-12-01 | Outpatient (CLI) | payer OTHER ==
[~2021-12-01] MED LIST changes: +ERGO500029; -QUET50TA3; +QUET50TA4; -VITA50005
[2021-12-01 16:38] LABS: HEMATOCRIT 41.4 % (36.0-47.0); HEMOGLOBIN 13.9 g/dl (12.0-15.5); MEAN CORPUSCULAR HEMOGLOBIN 28.9 pg (27.0-33.0); MEAN CORPUSCULAR HGB CONC 33.6 g/dl (32.0-36.5); MEAN CORPUSCULAR VOLUME 86.1 fl (80.0-96.0); PLATELET COUNT, AUTOMATED 221 10^3/uL (150-450); RED BLOOD COUNT 4.81 10^6/uL (4.00-5.40); WHITE BLOOD COUNT 4.5 10^3/uL (4.0-10.0)
[2021-12-01 16:48] LABS: INR 0.99; PROTHROMBIN TIME 13.5 SECONDS (12.7-14.5)
[2021-12-01 17:10] LABS: ALBUMIN 3.8 GM/DL (3.2-5.2); ALT/SGPT 22 U/L (12-78); BILIRUBIN,TOTAL 0.4 MG/DL (0.2-1.0); BLOOD UREA NITROGEN 12 MG/DL (7-18); CARBON DIOXIDE LEVEL 26 MEQ/L (21-32); CHLORIDE LEVEL 109 MEQ/L (98-107); CREATININE FOR GFR 0.76 MG/DL (0.55-1.30); GLOMERULAR FILTRATION RATE > 60.0 (>60); GLUCOSE, FASTING 113 MG/DL (70-100); POTASSIUM SERUM 3.8 MEQ/L (3.5-5.1); SODIUM LEVEL 141 MEQ/L (136-145); TOTAL PROTEIN 7.1 GM/DL (6.4-8.2)
[2021-12-01 17:32] LABS: HEPATITIS B SURFACE ANTIBODY NEGATIVE (POSITIVE)
[2021-12-01 18:05] LABS: HEPATITIS B CORE ANTIBODY IGM NEGATIVE (NEGATIVE)
[2021-12-01 18:06] LABS: HIV 1&2 SCREEN CENTAUR NEGATIVE (NEGATIVE)
[2021-12-01 18:21] LABS: HCG, SERUM QUALITATIVE NEGATIVE (NEGATIVE)
== END ==
LOC: M LAB 14:33
PROVIDERS: ATTEND Nurse Practitioner Family
DX: B18.2 Chronic viral hepatitis C (principal)

== ENCOUNTER → 2022-04-20 | Outpatient (CLI) | payer OTHER ==
[2022-04-20 14:59] LABS: HEMATOCRIT 38.4 % (36.0-47.0); HEMOGLOBIN 12.6 g/dl (12.0-15.5); MEAN CORPUSCULAR HEMOGLOBIN 28.8 pg (27.0-33.0); MEAN CORPUSCULAR HGB CONC 32.8 g/dl (32.0-36.5); MEAN CORPUSCULAR VOLUME 87.9 fl (80.0-96.0); PLATELET COUNT, AUTOMATED 213 10^3/uL (150-450); RED BLOOD COUNT 4.37 10^6/uL (4.00-5.40); WHITE BLOOD COUNT 4.7 10^3/uL (4.0-10.0)
[2022-04-20 15:13] LABS: HCG, SERUM QUALITATIVE NEGATIVE (NEGATIVE)
[2022-04-20 15:29] LABS: ALBUMIN 3.6 GM/DL (3.2-5.2); ALT/SGPT 29 U/L (12-78); BILIRUBIN,TOTAL 0.2 MG/DL (0.2-1.0); BLOOD UREA NITROGEN 23 MG/DL (7-18); CALCIUM LEVEL 8.9 MG/DL (8.5-10.1); CARBON DIOXIDE LEVEL 32 MEQ/L (21-32); CHLORIDE LEVEL 102 MEQ/L (98-107); CREATININE FOR GFR 0.85 MG/DL (0.55-1.30); GLOMERULAR FILTRATION RATE > 60.0 (>60); GLUCOSE, FASTING 108 MG/DL (70-100); POTASSIUM SERUM 4.3 MEQ/L (3.5-5.1); SODIUM LEVEL 139 MEQ/L (136-145); TOTAL PROTEIN 6.9 GM/DL (6.4-8.2)
[2022-04-20 15:54] LABS: GC DNA AMPLIFICATION NEGATIVE (NEGATIVE)
[2022-04-23 10:44] LABS: HIV 1&2 SCREEN CENTAUR NEGATIVE (NEGATIVE)
[2022-04-23 12:00] LABS: HEPATITIS B SURFACE ANTIGEN NEGATIVE (NEGATIVE)
[2022-04-23 12:37] LABS: HEPATITIS C VIRUS ABY INDEX 10.9 INDEX (<0.8)
== END ==
LOC: M LAB 13:00
PROVIDERS: ATTEND Family Medicine
DX: F11.20 Opioid dependence, uncomplicated (principal)